=== PATIENT | female | born 1950 | race Hispanic/Latino ===

== ENCOUNTER 2020-03-07 11:08 | Emergency (ER) | payer MEDICARE, OTHER ==
[~2020-03-07] VITALS: Ht 152.4 cm; Wt 104.3 kg
--- OUTSIDE RECORDS SUMMARY | ~2020-03-07 | XMS | Encounter Summary ---
Demographics + + + | Address | [facility] [address] | | | [place] [address] | + + + | Home Phone | | + + + | Preferred Language | Unknown | + + + | Marital Status | Single | + + + | Sikhism Affiliation | [id number] | + + + | Race | Unknown | + + + | Ethnic Group | or | + + + Author + + + | Author | [facility] | | | and [place] | + + + | Organization | [facility] | | | and [place] | + + + | Address | Unknown | + + + | Phone | Unavailable | + + + Support + + +---------+ + | Name | Relationship | Address | Phone | + + +---------+ + | Bandar Chowdhury | ECON | Unknown | | + + +---------+ + Care Team Providers + +------+ + | Care Spray Ii Painter Name | Role | Phone | + +------+ + PCP | Unavailable | + +------+ + Encounter Details +--------+ + + + + | Date | Type | Department | Care Team | Description | +--------+ + + + + | 05/11/ | Emergency | [facility] | Luiz Clark | Complicated open | | 2018 | | MEDICAL CENTER | DO Juan Carvajal | wound of right | | | | EMERGENCY CENTER | [address]vd [place], [place] | thigh, initial | | | | [address] | [address] | encounter | | | | [place], [place] | | | | | | [address] | | | | | | [phone] | | | +--------+ + + + + Social History + +-------+ +--------+------+ | Tobacco Use | Types | Packs/Day | Years | Date | | | | | Used | | + +-------+ +--------+------+ | Never Smoker | | | | | + +-------+ +--------+------+ + + + | Sex Assigned at | Date Recorded | | | | + + + | Not on file | | + + + documented as of this encounter Last Filed Vital Signs + + + + + | Vital Sign | Reading | Time Taken | Comments | + + + + + | Blood Pressure | 120/59 | 05/11/2018 6:23 PM | | | | | PST | | + + + + + | Pulse | 74 | 05/11/2018 6:23 PM | | | | | PST | | + + + + + | Temperature | 37.2 C (98.9 F) | 05/11/2018 6:23 PM | | | | | PST | | + + + + + | Respiratory Rate | 16 | 05/11/2018 6:23 PM | | | | | PST | | + + + + + | Oxygen Saturation | - | - | | + + + + + | Inhaled Oxygen | - | - | | | Concentration | | | | + + + + + | Weight | 100.7 kg (222 lb) | 05/11/2018 6:23 PM | | | | | PST | | + + + + + | Height | - | - | | + + + + + | Body Mass Index | 43.36 | 08/15/2017 1:08 PM | | | | | PDT | | + + + + + documented in this encounter Medications at Time of Discharge + + + +---------+ + + | Medication | Sig | Dispensed | Refills | Start | End Date | | | | | | Date | | + + + +---------+ + + | diclofenac | Apply 2 g topically | 100 g | 2 | 08/08/19 | | | (VOLTAREN) 1% GEL | 4 (four) times | | | 17 | | | | daily. | | | | | + + + +---------+ + + | lisinopril | | | 0 | 09/17/19 | | | (PRINIVIL, ZESTRIL) | | | | 18 | | | 5 mg tablet | | | | | | + + + +---------+ + + | traZODone | Take 100 mg by mouth | | 0 | 01/24/20 | | | (DESYREL) 100 mg | nightly. | | | 16 | | | tablet | | | | | | + + + +---------+ + + documented as of this encounter ED Notes Bert Ndiaye PA-C - 05/11/2018 6:27 PM PSTFormatting of this note might be different f rom the original. ED Provider Notes by Bert Ndiaye PA-C at 05/11/181826 Author: Bert Ndiaye PA-C Service: (none) Author Type: Physician Fisher Pound Net Or Trap - Certifi ed Filed: 05/11/181845 Date of Service: 05/11/181826 Status: Attested Hat Model: Bert Ndiaye PA-C (Physician Fisher Pound Net Or Trap - Certified) Cosigner: Luiz Clark DO at 05/12/18 0004 Attestation signed by Luiz Clark DO at 05/12/18 0004 I have discussed this patient's case in detail with the Advanced Carpet Floor Layer Apprentice, and pr ovided appropriate supervision. We have discussed all likely DDX and have addressed these a ppropriately. In addition, I have seen and examined the patient myself and my physical exam findings are the same as those documented by the APC. I am in agreement with their assessm ent, plan and disposition. Procedures [facility] EMERGENCY DEPARTMENT History of Present Illness Patient Identification Coleen Bravo is a 68 y.o. female. Patient information was obtained from patient. History/Exam limitations: communication barrier Language. Cognos Consultant used. Patient presented to the Emergency Department by: Car Chief Complaint Chief Complaint Patient presents with Skin Complaint Complicated R thigh wound is not healing Sore Throat The patient is a 68 y.o. female presenting for open wound on right thigh. Onset of symptoms was 2 days ago, with a unresolving course since that time. The symptoms are described to b e of moderate severity. The patient describes the quality and location of the symptoms as t he following: Patient was nicked by a chainsaw on Saturday, did not immediately seek care, and then was treated in [place]. Patient is unhappy that providers in [place] would not sut ure the wound closed. Care prior to arrival consisted of packing and bandaging, with good re lief. Pertinent negatives include: No fevers. PCP: Per PT None History reviewed. No pertinent past medical history. Past Surgical History Procedure Laterality Date UNLISTED PROCEDURE ARTHROSCOPY Prior to Admission medications Medication Sig Start Date End Date Taking? Authorizing Provider diclofenac (VOLTAREN) 1 % Apply 2 g topically 4 (four) times daily. 08/07/16 JUDIT RasconP gabapentin (NEURONTIN) 800 MG tablet Take 1 tablet by mouth 3 (three) times daily. 08/07/16 08/07/17 ALEXANDRA Mtz No Known Allergies Social History Social History Marital status: Single Spouse name: N/A Number of children: N/A Years of education: N/A Occupational History Not on file. Social History Main Topics Smoking status: Never Smoker Smokeless tobacco: Never Used Alcohol use No Drug use: No Sexual activity: Not on file Other Topics Concern Not on file Social History Narrative No narrative on file History reviewed. No pertinent family history. ROS Review of Systems Review of Systems Constitutional: Negative for chills, fever and weight loss. HENT: Positive for sore throat. Negative for ear discharge, ear pain and sinus pain. Eyes: Negative for pain and discharge. Respiratory: Negative for shortness of breath and stridor. Cardiovascular: Negative for chest pain. Gastrointestinal: Negative for abdominal pain, nausea and vomiting. Genitourinary: Negative for dysuria, frequency and urgency. Musculoskeletal: Negative for myalgias. Open wound on right thigh Skin: Negative for rash. All other systems reviewed and are negative. Physical Exam BP 120/59 (BP Location: Right forearm) | Pulse 74 | Temp 98.9 F (37.2 C) (Temporal) | Resp 16 | Wt 100.7 kg (222 lb) | SpO2 95% | BMI 43.36 kg/m Pulse Oximetry interpretation: Normal Vital Signs Reviewed: normal General: Alert, in no apparent distress, non toxic Eyes: Normal inspection, pupils equal and round, no conjunctival injection HENT: Ears normal, no erythema, effusion, or perforation Nose normal Pharynx normal, no erythema or exudates noted Uvula midline Moist mucous membranes Neck: Normal inspection, trachea midline Cardiovascular: Rate and rhythm normal No murmurs, clicks, or rubs Normal distal perfusion Respiratory: Breath sounds normal bilaterally without rhonchi, rales, or wheezes Normal respiratory excursion Abdomen: Soft and non tender without guarding or rebound tenderness Genitourinary: Deferred Rectal exam: Deferred Back: Normal inspection Skin: Color normal, well perfused Warm and dry No rash MSK: Open wound approximately 4cm x 2 cm, packed with gauze. Surrounding area is not red, warm, or swollen. Neuro/Psych: Patient is alert and demonstrates appropriate mood and affect No gross motor or sensory deficits Medical Decision Making and Emergency Department Course ED Department Course 1720: Patient is a 68 y.o. female presenting with open wound on right thigh. Patient has pr eviously been provided care in [place]. She is unhappy that they would not close the wound . With retail equipment associate help, I thoroughly explained the risks of wound closure and answered ques tions to the best of my ability. I also spoke with patients son on the phone and explained t he same risks. I educated patient the patient on home care and symptoms that would warrant r eturn to ED. Pt has cannot recall when last tetanus shot was. We will provide that in the ED. At end of encounter, patient states that she is also had throat pain and swelling "for 20 y ears". After thorough examination of throat, I note enlarged tonsils, but no evidence of inf ection of respiratory problems. I advised patient to follow up with PCP for management. Case was discussed with attending, Dr. Clark, who agreed with the above plan. MDM I have discussed my clinical impression and treatment plan with the patient/guardians. We h ave specifically discussed the signs and symptoms that would constitute the need for an imme diate return to the Emergency Department, the importance of continued outpatient follow up a nd further testing (if deemed necessary by the patient's regular doctor) and the importance of compliance with the discharge instructions. I have answered any questions that the patien t has to the best of my ability. Based upon the patient s history, physical exam, emergenc y department course, and any laboratory and diagnostic studies which may have been performed , I feel that there is no current emergent medical condition that warrants admission, transf er, or further emergency department treatment at this time. Records Reviewed Old medical records. Nursing notes. Diagnosis & Disposition ED Diagnosis Final diagnosis Complicated open wound of right thigh, initial encounter Disposition: ED Disposition ED Disposition Condition Comment Orders Discharge Stable Follow-up Information Follow up With Specialties Details Why Contact Info [facility] Schedule an appointment as soon as possible for a visit [address] [facility] [phone] Located Within [facility] Emergency Department Emergency Medicine As needed, If symp toms worsen [address] [facility] [address] Discharge Medications: Discharge Medication List as of 05/11/2018 6:25 PM Bert Ndiaye PA-C 05/11/181845 Luiz Clark DO 05/12/18 0004 onversion Transac tion, Provider Unknown - 05/11/2018 6:22 PM PSTFormatting of this note might be different f rom the original. ED Notes by Agnes Kelly RN at 05/11/181821 Author: Agnes Kelly RN Service: (none) Author Type: Registered Nurse Filed: 05/11/181821 Date of Service: 05/11/181821 Status: Signed Hat Model: Agnes Kelly RN (Registered Nurse) Wound dressed. Pt and daughter educated on wound care by Dr. Clark and this RN. Agnes Kelly RN 05/11/181821 onver giovana Transaction, Provider Unknown - 05/11/2018 5:59 PM PST ED Notes by Mallory Young RN at 05/11/181758 Author: Mallory Young RN Service: (none) Author Type: Registered Nurse Filed: 05/11/181805 Date of Service: 05/11/181758 Status: Addendum Hat Model: Mallory Young RN (Registered Nurse) Related Notes: Original Note by Mallory Hannah, RN (Registered Nurse) filed at 05/11/181804 Patient presents to ER with complaint of non healing wound. Patient states "I just want sti tches, I dont want it to heal and leave a scar". This RN, and provider have explained the ri sks of closing a deep wound such as hers, and the high risk for infection. Patient was unha ppy about this, and continues to ask provider to "just stitch it up" Mallory Young RN 05/11/181804 Mallory Young RN 05/11/181805 docume nted in this encounter Plan of Treatment Not on filedocumented as of this encounter Visit Diagnoses + + | Diagnosis | + + | Complicated open wound of right thigh, initial encounter | + + documented in this encounter
--- OUTSIDE RECORDS SUMMARY | ~2020-03-07 | XMS | Encounter Summary ---
Demographics + + + | Address | [address] | | | [place] [address] | + + + | Home Phone | | + + + | Preferred Language | Unknown | + + + | Marital Status | Single | + + + | Buddhism Affiliation | CAT | + + + | Race | White | + + + | Ethnic Group | or | + + + Author + + + | Author | [facility] | + + + | Organization | [facility] | + + + | Address | Unknown | + + + | Phone | Unavailable | + + + Support + + +---------+ + | Name | Relationship | Address | Phone | + + +---------+ + | Whitley Vaughn | ECON | Unknown | | + + +---------+ + | Bandar Chowdhury | ECON | Unknown | | + + +---------+ + Care Team Providers + +------+ + | Care Cashier Manager Name | Role | Phone | + +------+ + | Luiz Abel MD | PCP | | + +------+ + Reason for Visit + +--------+ + | Reason | Onset | Comments | | | Date | | + +--------+ + | Treatment Question | 10/09/ | Dr. Stewart | | | 2016 | | + +--------+ + Encounter Details +--------+ + + + + | Date | Type | Department | Care Team | Description | +--------+ + + + + | 10/09/ | Telephone | [facility] | Angie Stewart MD | Treatment Question | | 2017 | | [facility] | [address] | (Dr. Stewart) | | | | [address] | [address] | | | | | [place] [address] | [place], [place] | | | | | Pavilion, [facility] floor | [address] | | | | | [place], [place] | [phone] | | | | | [address] | | | | | | [phone] | | | +--------+ + + + + Social History + +-------+ +--------+------+ | Tobacco Use | Types | Packs/Day | Years | Date | | | | | Used | | + +-------+ +--------+------+ | Never Smoker | | | | | + +-------+ +--------+------+ + + +---------+ + | Alcohol Use | Drinks/Week | oz/Week | Comments | + + +---------+ + | No | 0 Standard drinks | 0.0 | | | | or equivalent | | | + + +---------+ + + + + | Sex Assigned at | Date Recorded | | | | + + + | Not on file | | + + + documented as of this encounter Miscellaneous Notes Telephone Encounter - Hannah Green RN - 11/01/2016 11:00 AM PDTReceived results report o n 10/[address] Roberts for review elephone Encounter - Hannah Green RN - 10/25/2016 10:51 [facility], CMP, and EKG LM requesting these Provided with urogyn fax # and [facility] number Electronically signed by Hannah Green RN at 12/2016 10:53 AM PDTTelephone Encounter - Hannah Green RN - 10/16/2016 3:53 PM PDTCall t o patient Was able to finally reach patient She notes that PCP is NOT Dr. Abel Patient does not remember PCP name but she goes to [facility] for PCP f/u CBC, CMP, and EKG order faxed to [facility] at [phone] Patient will call them to set up carroll elephone Encounter - Hannah Green RN - 10/12/2016 4:12 PM PDTCall to Evelia abdulkadir at Dr. Abel's office No answer LM clarifying that order for CBC, CMP, and EKG is for patient to have done with PCP Informed that I have been unable to get in touch with patient but will continue to attempt to reach her Call to patient No answer Unable to leave VM el ephone Encounter - Danish, August - 10/12/2016 4:[address] Abel's office call ing in regards to preop orders that were sent in for patient. Jazz requests clarification: is the patient to have these tests done there to save a tri p to [place]? Or is this just information to update patient's chart? 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 Abel, pts PCP, per verbal order received from Dr. Roberts Faxed to Dr. Abel at [phone] Will attempt to call patient at a later time elephone Encounter - Hannah Green RN - 10/09/2016 11:11 AM PDTRec eived verbal order for patient to have the following done with local PCP: CBC, CMP, EKG documente d in this encounter Plan of Treatment + +------+--------+ + + | Name | Type | Priori | Associated Diagnoses | Order Schedule | | | | ty | | | + +------+--------+ + + | 12 LEAD ECG | ECG | Routin | Preoperative | Ordered: 10/09/2016 | | | | e | clearance | | + +------+--------+ + + documented as of this encounter Visit Diagnoses + + | Diagnosis | + + | Preoperative clearance - Primary Preoperative examination, unspecified | + + documented in this encounter"
--- OUTSIDE RECORDS SUMMARY | ~2020-03-07 | XMS | Encounter Summary ---
Demographics + + + | Address | [address] | | | [place] [address] | + + + | Home Phone | | + + + | Preferred Language | Unknown | + + + | Marital Status | Single | + + + | Confucianist Affiliation | CAT | + + + | Race | White | + + + | Ethnic Group | or | + + + Author + + + | Author | [facility] | + + + | Organization | [facility] | + + + [...] Team Providers + +------+ + | Care Help Desk Operator Name | Role | Phone | + +------+ + | Unknown | PCP | Unavailable | + +------+ + Encounter Details +--------+ + + + + | Date | Type | Department | Care Team | Description | +--------+ + + + + | 03/05/ | Hospital | Registration [facility] | | | | 2016 | Encounter | [address] | | | | | | [place], | | | | | | [place] [address] | | | +--------+ + + + + Social History + +-------+ +--------+------+ | Tobacco Use | Types | Packs/Day | Years | Date | | | | | Used | | + +-------+ +--------+------+ | Never Assessed | | | | | + +-------+ +--------+------+ + + + | Sex Assigned at | Date Recorded | | | | + + + | Not on file | | + + + documented as of this encounter Medications at Time of Discharge + + + +---------+ + + | Medication | Sig | Dispensed | Refills | Start | End Date | | | | | | Date | | + + + +---------+ + + | gabapentin 800 mg | 800 mg three times | | 1 | 02/06/20 | | | oral tablet | daily. | | | 16 | | + + + +---------+ + + | traZODone 100 mg | 100 mg once daily at | | 3 | 01/24/20 | | | oral tablet | bedtime. | | | 16 | | + + + +---------+ + + documented as of this encounter Plan of Treatment Not on filedocumented as of this encounter Visit Diagnoses Not on filedocumented in this encounter"
--- OUTSIDE RECORDS SUMMARY | ~2020-03-07 | XMS | Encounter Summary ---
Demographics + + + | Address | [address] | | | [place] [address] | + + + | Home Phone | | + + + | Preferred Language | Unknown | + + + | Marital Status | Single | + + + | Episcopal Affiliation | CAT | + + + | Race | White | + + + | Ethnic Group | or | + + + Author + + + | Author | [facility] | + + + | Organization | [facility] | + + + [...] Team Providers + +------+ + | Care Bulk Sealer Operator Name | Role | Phone | + +------+ + | Luiz Abel MD | PCP | | + +------+ + Reason for Visit + +--------+ + | Reason | Onset | Comments | | | Date | | + +--------+ + | Refill Request | 12/04/ | | | | 2017 | | + +--------+ + Encounter Details +--------+--------+ + + + | Date | Type | Department | Care Team | Description | +--------+--------+ + + + | 12/04/ | Refill | [facility] | Ani Ravi | Refill Request | | 2018 | | [facility] | MD [place] [address] | | | | | [address] | [facility] | | | | | [address] | [place], [place] | | | | | [place], [facility] floor | [address] | | | | | [place], [place] | [phone] | | | | | [address] | | | | | | [phone] | | | +--------+--------+ + + + Social History + +-------+ +--------+------+ | Tobacco Use | Types | Packs/Day | Years | Date | | | | | Used | | + +-------+ +--------+------+ | Never Smoker | | | | | + +-------+ +--------+------+ + +---+---+---+ | Smokeless Tobacco: | | | | | Never Used | | | | + +---+---+---+ + + +---------+ + | Alcohol Use [...] documented as of this encounter Miscellaneous Notes Addendum Note - Sincere Green RN - 01/14/2018 10:32 AM PDT Addended by: SINCERE GREEN RN on: 01/14/2018 10:32 AM Modules accepted: Orders elephone Encounter - Sincere Green RN - 01/14/2018 10:13 AM PDTScript for Oxybutynin 15 mg ER daily eRxd to p referred pharmacy Call to [facility] to determine cost Medication is covered. Co-pay $0 Call to patient Patient reports that she did start Oxybutynin IR 5 mg BID Reports that symptoms are better, Some leakage is present but not as much Reports side effects of dry mouth and constipation continue to be the same as before Reviewed Dr. Ravi recommendations with patient Patient is happy to try Oxybutynin ER Advised patient to stop taking Oxybutynin IR 5 mg BID and initiate Oxybutynin ER 15 mg sri y Patient confirms and agrees with plan elephone Encounter - Ani Ravi MD - 01/12/2018 3:01 PM PDTIf her insurance will cover the extended release formula, then we should try 15 mg DAILY rather than the BID dosing. Also, if she pe rsists with urinary leakage then we need to consider Macroplastique injection given that she also demonstrated stress inc with borderline ISD and a fixed urethra on prior testingElectr onically signed by Ani Ravi MD at 01/12/2018 3:05 PM PDTTelephone Encounter - Sincere Green RN - 01/03/2018 5:18 PM PDTCall to patient No answer LMTCB elephone Encount er - Indira Roberts MD - 01/02/2018 12:11 PM PDTI will refill this prescription and s he can try taking 2 tabs twice daily. If this does not increase her side effects to an into lerable amount, then on the next refill we can put in for 10mg tabs BID.Electronically peng d by Indira Roberts MD at 01/02/2018 12:11 PM PDTTelephone Encounter - Sincere Green RN - 01/02/2018 10:46 AM PDTCall to patient Patient states that the Oxybutynin helps some with bladder pain with urgency Patient states she noted about 50% improvement and is interested in increasing dosage Patient states she did experience some dry mouth and constipation but this does not bother patient Advised patient this information will be routed to Dr. Ravi and Dr. Roberts for review Advised she can use Biotene products to help with dry mouth and colace for constipation Patient agrees with plan and would like to know if it is possible to send colace script as well Advised I will route request Routing to Dr. Ravi and Dr. Roberts for review RE: 1) Oxybutynin dosage management 2) Colace script eleph one Encounter - Sincere Green RN - 12/16/2017 11:36 AM PDTCall to patient No answer LMCTCB elephone Encoun ter - Ashely Zhang MD - 12/10/2017 10:50 AM PDTCalled patient. Reached voicemail. Left m essage asking her to call the clinic and let us know how she is doing with the prescription to help decide appropriate refill course. Ashley Zhang MD, MS FPMRS Fellow elephone Encounter - Trav, Ani Mcgowan MD - 12/04/2017 12:59 PM PDTI am happy to refill her medication but please find out how much this is helping her. We prescribed this in September and planned a trial of medication to understand how much better this gets her. I need to know how much better she is so we can determine whether any adjustments need to be made in her dose of med or in her treatment plan. I will hold off on sending the refill until we know this elephone Encounter - Elizabeth Douglass MA - 12/04/2017 12:47 PM PDTFormatting of this note might be different from the orig inal. Refill request received from [facility] pharmacy for: Requested Prescriptions Pending Prescriptions Disp Refills oxybutynin 5 mg oral tablet 60 tablet 1 Sig: Take 1 tablet by mouth two times daily. Last refill: 11/24/2017 Last visit: 09/18/2017 Next visit: No future visit scheduled Last mammogram: Pharmacy verified and order pended. Routing to Dr. Ravi and Dr. Zhang for review/autho rization. documented in this en counter Plan of Treatment Not on filedocumented as of this encounter Visit Diagnoses Not on filedocumented in this encounter"
--- OUTSIDE RECORDS SUMMARY | ~2020-03-07 | XMS | Encounter Summary ---
Demographics + + + | Address | [address] | | | [place] [address] | + + + | Home Phone | | + + + | Preferred Language | Unknown | + + + | Marital Status | Single | + + + | Uatsdin Affiliation | 1041 | + + + | Race | Unknown | + + + | Ethnic Group | or | + + + Author + + + | Author | [facility] | | | and [place] | + + + | Organization | [facility] | | | [...] Team Providers + +------+ + | Care Aerodynamic Consultant Name | Role | Phone | + +------+ + | Jeannette Meza | PCP | | + +------+ + Reason for Visit Auth/Cert +--------+--------+ + + + + | Status | Reason | Specialty | Diagnoses / | Referred By | Referred To | | | | | Procedures | Contact | Contact | +--------+--------+ + + + + | | | | Diagnoses | | Ernesto, | | | | | Abdominal | | Wilfrido Aranda, | | | | | pain, | | [address] | | | | | unspecified | | [address] | | | | | abdominal | | [place], | | | | | location | | [place] [address] | | | | | Positive FIT | | Phone: | | | | | (fecal | | [phone] | | | | | immunochemic | | Fax: | | | | | al test) | | [phone] | | | | | Morbid | | | | | | | obesity with | | | | | | | body mass | | | | | | | index (BMI) | | | | | | | of 40.0 or | | | | | | | higher (HCC) | | | | | | | LISHA on | | | | | | | CPAP | | | | | | | Procedures | | | | | | | TX | | | | | | | ESOPHAGOGAST | | | | | | | RODUODENOSCO | | | | | | | PY TRANSORAL | | | | | | | DIAGNOSTIC | | | | | | | TX EGD | | | | | | | TRANSORAL | | | | | | | BIOPSY | | | | | | | SINGLE/MULTI | | | | | | | PLE TX | | | | | | | COLONOSCOPY | | | | | | | FLX DX | | | | | | | W/COLLJ SPEC | | | | | | | WHEN PFRMD | | | | | | | TX | | | | | | | COLONOSCOPY | | | | | | | W/BIOPSY | | | | | | | SINGLE/MULTI | | | | | | | PLE TX | | | | | | | COLSC FLX | | | | | | | W/RMVL OF | | | | | | | TUMOR POLYP | | | | | | | LESION SNARE | | | | | | | TQ TX | | | | | | | ANESTHESIA | | | | | | | COMBINED | | | | | | | UPPER&LOWER | | | | | | | GI | | | | | | | ENDOSCOPIC | | | | | | | PX EGD | | | | | | | COLONOSCOPY | | | +--------+--------+ + + + + Encounter Details +--------+ + + + + | Date | Type | Department | Care Team | Description | +--------+ + + + + | 01/20/ | Anesthesia | [facility] | Keith Larsen | | | 2019 | Event | [facility] | DO Ignacio [address] | | | | | [address] | [address] [facility] | | | | | [place] | [place] [address] | | | | | [address] | [phone] | | | | | [phone] | | | +--------+ + + + + Anesthesia Record + + + + + | Procedure Name | Responsible | Anesthesia Start | Anesthesia Stop Time | | | Anesthesiologist | Time | | + + + + + | EGD (N/A Mouth) | Keith Larsen, | 01/20/19936 | 01/20/19 1018 | | | DO | | | + + + + + +----+---+ + + | Da | T | Event | Comment | | te | i | | | | | m | | | | | e | | | +----+---+ + + | 09 | 0 | | | | /0 | 8 | | | | 3/ | 4 | | | | 20 | 1 | | | | 19 | | | | +----+---+ + + | | 0 | An Checkout | Pre-use anesthesia machine/equipment checkout. | | | 9 | | | | | 2 | | | | | 7 | | | +----+---+ + + | | 0 | An Start | Reassessment prior to anesthesia induction/procedure. | | | 9 | | | | | 3 | | | | | 7 | | | +----+---+ + + | | 0 | AN | Per surgeon request | | | 9 | Antibiotic | | | | 3 | declined | | | | 8 | | | +----+---+ + + | | 0 | Pre-Procedu | | | | 9 | ral Timeout | | | | 4 | Completed | | | | 1 | | | +----+---+ + + | | 0 | Quick Note | SpO2 89-90 on room air, lungs clear, given real in preop | | | 9 | | | | | 4 | | | | | 2 | | | +----+---+ + + | | 0 | An | | | | 9 | Induction | | | | 4 | | | | | 2 | | | +----+---+ + + | | 0 | First | | | | 9 | Inc/Proc St | | | | 4 | | | | | 6 | | | +----+---+ + + | | 0 | Breathing | | | | 9 | Spontaneous | | | | 4 | ly | | | | 8 | | | +----+---+ + + | | 1 | an stop | | | | 0 | data | | | | 1 | | | | | 4 | | | +----+---+ + + | | 1 | An Stop | Patient handed off to recovery nurse. | | | 1 | | | | | 8 | | | +----+---+ + + +------+ | Meds | +------+ + + + | Name | Total | + + + | propofol (DIPRIVAN) injection | 40 mg | | (bolus) (20 mL) | | + + + | propofol | 430.76 mg | + + + | lidocaine 2% | 100 mg | + + + | lactated ringers (LR) infusion | 0 mL | + + + + + | No agents on file. | + + + + | No blood administrations on file. | + + +--------+ + + + | Type | Details | Placement | Removal | +--------+ + + + | Periph | 01/20/19; 914; Left; Hand; | 01/20/19 0915 by | 01/20/19 1052 by | | eral | [id number] catheter system; | Julieta A Rainey, | Julieta A Rainey, | | IV | 20 gauge, 1 1/4 in length; | RN | RN | | | intradermal injection, tolerated | | | | | well; no longer indicated, | | | | | catheter/device intact; 01/20/19; | | | | | 1052 | | | +--------+ + + + documented in this encounter Social History + +-------+ +--------+------+ | Tobacco [...] Comments | + + +---------+ + | Never | | | Not on file | + + +---------+ + + + + + | Alcohol Habits | Answer | Date Recorded | + + + + | How often do you have a drink containing | Never | 01/06/2019 | | alcohol? | | | + + + + | How many drinks containing alcohol do you | Not asked | | | have on a typical day when you are | | | | drinking? | | | + + + + | How often do you have six or more drinks on | Not asked | | | one occasion? | | | + + + + + + + | Sex Assigned at | Date Recorded | | | | + + + | Not on file | | + + + documented as of this encounter OR Notes Anesthesia Postprocedure Evaluation - Keith Larsen DO - 01/20/2019 11:09 AM PDTFor matting of this note might be different from the original. ANESTHESIA POSTANESTHESIA EVALUATION Coleen Bravo 68 y.o. female 1950 [id number] Procedure(s) EGD (N/A Mouth) COLONOSCOPY (N/A Rectum) Cooperates? Yes Mental Status Performs simple tasks. Respiratory Satisfactory - Airway patent (self maintained). Cardiovascular Satisfactory - Blood pressure and heart rate acceptable Temperature Satisfactory Pain Satisfactory N/V Control Satisfactory Hydration Satisfactory - No signs of dehydration Vitals Value Taken Time Temp 36.1 C (97 F) 01/20/2019 10:18 Pulse 77 01/20/2019 10:48 Resp 12 01/20/2019 10:18 BP 118/75 01/20/2019 10:45 Arterial Line BP Arterial Line BP 2 SpO2 93 % 01/20/2019 10:48 Vitals shown include unvalidated device data. Electronically signed by Keith Larsen DO 01/20/2019 11:09 [facility] nesthesia Preprocedure Evaluation - Keith Larsen DO - 12/20 2:31 PM PDT ANESTHESIA PREANESTHESIA EVALUATION Coleen Bravo 68 y.o. female 1950 [id number] Procedure(s): EGD (N/A Mouth) COLONOSCOPY (N/A Rectum) Medical,anesthesia, drug, allergy histories reviewed, NPO status verified. ECG reviewed. Labs reviewed. . Review of Systems / Med History Anesthesia History (-) PONV, difficult intubation, malignant hyperthermia . Cardiovascular , Exercise tolerance >4 METS(+) hypertension, (-) coronary artery disease. . Pulmonary (-) Chronic Obstructive Pulmonary Disease. (+) sleep apnea (No cpap). (+) Sleep apnea histo ry/interventions: known. (+) asthma. Gastrointestinal/Hepatic (+) acid reflux. Renal No results found for: CREA, BUN, NA, K, CL, CO2 . (-) end-stage renal disease. Endocrine (+) obesity: morbid BMI 40+ (-) Diabetes. Hematology/Other No results found for: WBC, HGB, HCT, MCV, LABPLAT, PLT . Neuromuscular (+) history of headaches, back pain. Psychology (+) psychiatric history of anxiety and depression. Physical Exam Airway MP II, TM >3 FB, Mouth opening >2 FB. Neck: full ROM, extends >30 degrees. Jaw protrus ion normal. Dental ; Patient denies loose, chipped or missing teeth (+) dentures-upper. CV Rhythm regular. Rate normal. (-) murmur. Pulm Clear to auscultation bilaterally. Neuro Grossly normal. Anesthesia Plan ASA 3 (BMI 43) Type: General, TIVA. Induction: Intravenous. Potential problems: None anticipated. Monitors: Standard ASA monitors. Consent statement:Anesthetic plan, alternatives, risks and benefits discussed with patient. discussed risks to teeth, heart problems, pain, perioperative CV events, respiratory events , sore throat. Consenting person understands and agrees to proceed . PARQ. Intravenous induction to loss of reflexes. Spontaneous ventilation throughout. Risk of as piration and hypoxia with endoscopy under TIVA explicitly discussed and patient desires to p roceed. Electronically Signed by: Keith Larsen DO ESig date/time: 01/17/2019 14:31 documented in th is encounter Miscellaneous Notes Anesthesia Post-op Handoff - Keith Larsen DO - 01/20/2019 10:17 AM PDTFormatting o f this note might be different from the original. ANESTHESIA HANDOFF NOTE Coleen Bravo 68 y.o. female 1950 [id number] The following were completed during the transfer of care: 1. Identification of patient 2. Identification of responsible practitioner (primary service) 3. Discussion of pertinent medical history 4. Discussion of the surgical/procedure course (procedure, reason for surgery, procedure pe rformed) 5. Intraoperative anesthetic management and issues/concerns 6. Expectations/plans for the early post-procedure period 7. Opportunity for questions and acknowledgement of understanding of report from receiving team EGD (N/A Mouth) COLONOSCOPY (N/A Rectum) Patient Location: Phase II Handoff Protocol Used: post-procedure handoff checklist completed Condition: sedated Airway/O2: other (see comments) Multimodal analgesia: multimodal analgesia not used between 6 hours prior to anesthesia sta rt to PACU discharge Analgesics allergies?: Patient does not have documented allergies to multiple classes of an algesics Comments: Supplemental Oxygen administered as necessary to maintain oxygen saturations abov e 92%. If the surgery does not typically require Narcotics then Multi-Modal Analgesia is not indic ated. The significant anesthesia concerns and VS in Epic were reviewed with the receiving team. Keith Larsen DO 01/20/2019 10:17 [facility] documented in this encounter Plan of Treatment Not on filedocumented as of this encounter Visit Diagnoses Not on filedocumented in this encounter Administered Medications + +--------+ +--------+------+------+ | Medication Order | MAR | Action | Dose | Rate | Site | | | Action | Date | | | | + +--------+ +--------+------+------+ | lidocaine (PF) 2% injection | Given | 01/21/20 | 100 mg | | | | Intravenous, PRN, Starting Tue | | 19 9:43 | | | | | 01/20/19 at 0943, Anesthesia | | AM PDT | | | | | Intra-op | | | | | | + +--------+ +--------+------+------+ +---+---+ | | | +---+---+ + +-------+ +-------+---+---+ | propofol (DIPRIVAN) injection | Given | 01/21/20 | 40 mg | | | | Intravenous, PRN, Starting Tue | | 19 9:43 | | | | | 19 at 0943, Anesthesia | | AM PDT | | | | | Intra-op | | | | | | + +-------+ +-------+---+---+ +---+---+ | | | +---+---+ + + + + +-------+---+ | propofol (DIPRIVAN) injection | Rate/Dos | 01/21/20 | 160 | 91.5 | | | Intravenous, CONTINUOUS PRN, | e Change | 19 10:02 | mcg/kg/m | mL/hr | | | Starting 01/20/19 at 0945, | | AM PDT | in | | | | Anesthesia Intra-op | | | | | | + + + + +-------+---+ +---------+ + +--------+---+ | New Bag | 01/21/20 | 200 | 114.4 | | | | 19 9:45 | mcg/kg/m | mL/hr | | | | AM PDT | in | | | +---------+ + +--------+---+ +---+---+ | | | +---+---+ documented in this encounter"
--- OUTSIDE RECORDS SUMMARY | ~2020-03-07 | XMS | Encounter Summary ---
Demographics + + + | Address | [address] | | | [place] [address] | + + + | Home Phone | | + + + | Preferred Language | Unknown | + + + | Marital Status | Single | + + + | Judaism Affiliation | CAT | + + + | Race | White | + + + | Ethnic Group | or | + + + Author + + + | Author | [facility] | + + + | Organization | [facility] | + + [...] Team Providers + +------+ + | Care Leather Etcher Name | Role | Phone | + +------+ + | Luiz Abel MD | PCP | | + +------+ + Reason for Referral Physical Therapy (Routine) + +--------+ + + + + | Status | Reason | Specialty | Diagnoses / | Referred By | Referred To | | | | | Procedures | Contact | Contact | + +--------+ + + + + | Canceled | | Non [facility] | Diagnoses | Alejandra, | Non[facility] | | | | Department | Pelvic pain | Indira Stafford, | Epic Dept | | | | | Procedures | [address] | | | | | | PHYSICAL | [address] | | | | | | THERAPY | Malena Donaldson | | | | | | REFERRAL | [place], [place] | | | | | | | [address] | | | | | | | Phone: | | | | | | | [phone] | | | | | | | Fax: | | | | | | | [phone] | | + +--------+ + + + + Reason for Visit Office Visit - E/M Services (Routine) +--------+--------+ + + + + | Status | Reason | Specialty | Diagnoses / | Referred By | Referred To | | | | | Procedures | Contact | Contact | +--------+--------+ + + + + | Closed | | Obstetrics & | Diagnoses | Non[facility] | [facility] | | | | Gynecology | Unspecified | Epic Dept | [facility] [address] | | | | | | | [address] | | | | | complication | | [place] | | | | | of internal | | [facility] | | | | | prosthetic | | floor | | | | | device, | | [place], [place] | | | | | implant and | | [address] | | | | | graft, | | Phone: | | | | | initial | | [phone] | | | | | encounter | | Fax: | | | | | Procedures | | [phone] | | | | | [place] | | | | | | | CYSTOMETROGR | | | | | | | AM W/DISULFURIZER TENDER&UP | | | | | | | [place] | | | | | | | INTRAABDOMIN | | | | | | | AL PRESSURE | | | | | | | TEST OK | | | | | | | ELECTRO-UROF | | | | | | | LOWMETRY, | | | | | | | FIRST OK | | | | | | | ANAL/URINARY | | | | | | | MUSCLE | | | | | | | STUDY OK | | | | | | | URETHROCYSTO | | | | | | | GRAM+VOIDING | | | | | | | OK | | | | | | | INJECTION | | | | | | | FOR BLADDER | | | | | | | X-RAY | | | +--------+--------+ + + + + Encounter Details +--------+---------+ + + + | Date | Type | Department | Care Team | Description | +--------+---------+ + + + | 10/31/ | Office | [facility] | Indira Roberts | Pelvic pain (Primary | | 2017 | Visit | [facility] | MD Nydia [address] | Dx) | | | | John MCFADDEN | [address] | | | | | [address] | [place], [place] | | | | | Jono, [facility] floor | [address] | | | | | [place], [place] | [phone] | | | | | [address] | | | | | | [phone] | | | +--------+---------+ + + + Social History + +-------+ [...] + + + | Blood Pressure | 128/80 | 10/31/2016 12:47 PM | | | | | PDT | | + + + + + | Pulse | 97 | 10/31/2016 12:47 PM | | | | | PDT | | + + + + + | Temperature | 37.2 C (99 F) | 10/31/2016 12:47 PM | | | | | PDT | | + + + + + | Respiratory Rate | - | - | | + + + + + | Oxygen Saturation | 94% | 10/31/2016 12:47 PM | | | | | PDT | | + + + + + | Inhaled Oxygen | - | - | | | Concentration | | | | + + + + + | Weight | 102.6 kg (226 lb 4.8 | 10/31/2016 12:47 PM | | | | oz) | PDT | | + + + + + | Height | - | - | | + + + + + | Body Mass Index | 44.2 | 03/28/2016 2:22 PM | | | | | PST | | + + + + + documented in this encounter Progress Notes Indira Roberts MD - 10/31/2016 1:00 PM [facility] Urogynecology Visit 10/31/2016 HPI: Ms. Bravo is a 66yo with urinary incontinence, urinary frequency, dysuria and l evator myalgia presenting for preoperative visit prior to removal of vaginal mesh on 11/01/16 . Her history is notable for [place] sling (anterior mesh with sacrospinous and arcus tendin eus attachments)placed by Dr. Luiz Abel ([place], [place]) in 2008 for anterior vaginal wall prolapse and stress urinary incontinence. She has had persistent pelvic pain since this proc edure and strongly desires mesh removal. Urodynamics performed in September 2016 showed detrusor overactivity with provocation (stress vishal t and filling phase), with stress urinary incontinence at 184mL with poor kegel effort. She also had borderline ISD, with MUCP of 35. She has been seen locally for surgical clearance by Dr. Cotton in [place], [place]. Preop EKG an d labwork WNL. Her lisinopril was increased to 40mg for better control of HTN and inhaled s teroid was added for asthma but she has obtained medical clearance for her procedure tomorro w. Pt reports having an improvement in her pelvic pain as well as improvement in urinary compl aints since urodynamic testings. She is quite nervous about undergoing an operation. The past medical history, surgical history, family history, social history, and current med ications updated in EPIC. PHYSICAL EXAM BP 128/80 | Pulse 97 | Temp (Src) 37.2 C (99 F) (Oral) | Wt 102.6 kg (226 lb 4.8 oz) | SpO2 94% | BMI 44.2 kg/(m^2) GENERAL: Healthy Appearing, No acute distress NECK: No thyromegaly RESPIRATORY: Breathing without difficulty CARDIOVASCULAR: No pedal edema ABDOMEN: Obese SKIN: Warm and dry NEUROLOGIC GAIT: Normal ORIENTATION: Oriented to time, place, and person AFFECT: Normal ASSESSMENT 66yo with urinary incontinence, urinary frequency, dysuria and levator myalgia present ing for preoperative visit prior to planned excision of anterior vaginal mesh. She has significant levator tenderness but has no pain to palpation of her anterior mesh. Pt previously counseled that her pain and urinary incontinence are unlikely to resolve with removal of vaginal mesh and in fact may worsen. We have recommended pelvic physical thera py as well as consideration of medications for bladder spasm as first line therapy. She had had improvement in her pain and urinary symptoms since urodynamics and I suspect this is in some sense secondary to interruption of the pain pathway, possibly a therapeutic hydrodiste nsion in part. Particularly in light of her current improvement in pain, we discussed that this suggests she may respond well to pelvic physical therapy.mesh. I expressed my concern that removal is likely to exacerbate her pain. After our discussion, she would like to cancel surgery. She is amenable to a 3-month trial of pelvic PT near her home. RECOMMENDATIONS - Referral placed to [facility] in [place] for pelvic PT - Return in 3 months if pain not improved (can cancel appt if symptoms manageable) - Will readdress need for mesh excision as needed Garima Roberts MD Female Pelvic Medicine and Reconstructive Surgery Fellow documented in th is encounter Plan of Treatment Not on filedocumented as of this encounter Procedures + +--------+ + + + | Procedure Name | Priori | Date/Time | Associated Diagnosis | Comments | | | ty | | | | + +--------+ + + + | OUTSIDE CARDIOLOGY | | 10/31/2016 | | Results for this | | | | 12:00 AM | | procedure are in the | | | | PDT | | results section. | + +--------+ + + + | ORDERS OTHER | | 10/31/2016 | | Results for this | | | | 12:00 AM | | procedure are in the | | | | PDT | | results section. | + +--------+ + + + | LAB REPORTS | | 10/26/2016 | | Results for this | | | | 12:00 AM | | procedure are in the | | | | PDT | | results section. | + +--------+ + + + documented in this encounter Results ORDERS OTHER (10/31/2016 12:00 AM PDT) + + + | Narrative | Performed At | + + + | | | + + + OUTSIDE CARDIOLOGY (10/31/2016 12:00 AM PDT) + + + | Narrative | Performed At | + + + | | | + + + LAB REPORTS (10/26/2016 12:00 AM PDT) + + + | Narrative | Performed At | + + + | | | + + + documented in this encounter Visit Diagnoses + + | Diagnosis | + + | Pelvic pain - Primary Unspecified symptom associated with female genital organs | + + documented in this encounter"
--- OUTSIDE RECORDS SUMMARY | ~2020-03-07 | XMS | Encounter Summary ---
Demographics + + + | Address | [facility] [address] | | | [place] [address] | + + + | Home Phone | | + + + | Preferred Language | Unknown | + + + | Marital Status | Single | + + + | Restorationist Affiliation | [id number] | + + + | Race | Unknown | + + + | Ethnic Group | or | + + + Author + + + | Author | [facility] | | | and [place] | + + + | Organization | [facility] | | | [...] Team Providers + +------+ + | Care Site Safety Representative Name | Role | Phone | + +------+ + PCP | Unavailable | + +------+ + Encounter Details +--------+ + + + + | Date | Type | Department | Care Team | Description | +--------+ + + + + | 03/02/ | Hospital | [facility] | Conversion | Shortness of breath | | 2015 | Encounter | [facility] | Transaction, | | | | | ECHOCARDIOGRAPHY | Provider Unknown | | | | | [address] [facility] | | | | | | [place] | (Fax) | | | | | [address] | | | | | | [phone] | | | +--------+ + + + [...] | + +--------+ + + + | ECHO COMPLETE | Routin | 03/02/2015 | | Results for this | | | e | 3:53 PM | | procedure are in the | | | | PDT | | results section. | + +--------+ + + + documented in this encounter Results ECHO Complete (03/02/2015 3:53 PM PDT) + + | Specimen | + + | | + + + + + | Impressions | Performed At | + + + | 1. Essentially normal study. | | + + + + + + | Narrative | Performed At | + + + | Patient Name: SONIA CANTRELL Date of : 1950 | | | Performing Physician: Nabil Haynes | | | MD | | | ------REPORT ADDENDED------ INDICATIONS SHORTNESS OF | | | BREATH CONCLUSIONS 1. Essentially normal study. | | | FINDINGS -------- ECG rhythm: Sinus rhythm. Study: A 2-dimensional | | | transthoracic echocardiogram with m-mode, spectral and color flow | | | Doppler was perfomed. Study: This was a technically adequate study. | | | Left Ventricle: Overall left ventricular systolic function is normal | | | with, an EF between 65 - 70 %. Left Ventricle: The left ventricle | | | cavity size is normal. Left Ventricle: Left ventricular wall | | | thickness is normal. Left Ventricle: The diastolic filling pattern is | | | normal for the age of the patient. Right Ventricle: The right | | | ventricle is normal in size. Left Atrium: The left atrial size is | | | normal. Right Atrium: The right atrial size is normal. Aortic Valve: | | | Aortic valve is trileaflet and is mildly thickened. Aortic Valve: | | | There is no evidence of aortic regurgitation. Aortic Valve: There is | | | no evidence of aortic stenosis. Mitral Valve: The mitral valve is | | | normal. Mitral Valve: No mitral regurgitation. Mitral Valve: Mild | | | mitral annular calcification present. Tricuspid Valve: The tricuspid | | | valve appears structurally normal. Tricuspid Valve: Mild tricuspid | | | regurgitation present. Tricuspid Valve: The right ventricular | | | systolic pressure (pulmonary artery systolic pressure), as measured by | | | Doppler, is 33.22mmHg. Pulmonic Valve: The pulmonic valve was not | | | well visualized. Pericardium: There is a trivial pericardial effusion | | | present. Pericardium: Anterior echo free space present. IVC/Hepatic | | | Veins: The IVC is small (<1.5cm) and collapses with sniff, consistent | | | with central venous pressures of 0-5mmHg. Septum: Appears to be a | | | PFO vs ASD seen with color doppler. MEASUREMENTS | | | Ao asc: 3.03 cm IVC: 1.24 cm LA Diam: 4.69 cm LA Major: | | | 5.08 cm EDV(Teich): 59.37 ml IVSd: 1.01 cm LVIDd: 3.73 cm | | | LVPWd: 1.07 cm LVOT Diam: 1.84 cm %FS: 35.05 % | | | EF(Teich): 65.17 % ESV(Teich): 20.67 ml IVSs: 1.18 cm | | | LVIDs: 2.42 cm LVPWs: 1.52 cm SV(Teich): 38.69 ml MV Izabella | | | Diam: 1.71 cm RA Major: 4.82 cm RVIDd: 3.22 cm LVEF MOD | | | A2C: 62.84 % SV MOD A2C: 32.67 ml LVEF MOD A4C: 63.60 % SV | | | MOD A4C: 35.63 ml EF Biplane: 62.51 % LVEDV MOD BP: 55.25 | | | ml LVESV MOD BP: 20.71 ml LVEDV MOD A2C: 51.99 ml LVLd A2C: | | | 6.78 cm LVEDV MOD A4C: 56.02 ml LVLd A4C: 7.15 cm LVESV | | | MOD A2C: 19.31 ml LVLs A2C: 5.31 cm LVESV MOD A4C: 20.39 ml | | | LVLs A4C: 5.82 cm CO Biplane: 2.45 l/min HR: 71.06 BPM | | | R-R: 844.29 ms LAESV(A-L): 58.66 ml LAESV Index (A-L): | | | 27.03 ml/m2 LAAs A2C: 19.44 cm2 LAESV A-L A2C: 54.90 ml LAESV | | | MOD A2C: 51.41 ml LALs A2C: 5.84 cm LAAs A4C: 17.57 cm2 | | | LAESV A-L A4C: 53.00 ml LALs A4C: 4.94 cm Ao Diam: 3.27 cm | | | AV Cusp: 2.10 cm LA Diam: 4.88 cm LA/Ao: 1.48 D-E | | | Excursion: 1.56 cm E-F Donley: 0.09 m/s EPSS: 0.42 cm HR: | | | 75.26 BPM AV maxP.35 mmHg AV meanP.78 mmHg AV | | | Vmax: 1.35 m/s AV Vmean: 0.92 m/s AV VTI: 28.39 cm JOSE | | | Vmax: 2.63 cm2 JOSE (VTI): 2.44 cm2 AVAI (Vmax): 0.00 cm2/m2 | | | AVAI (VTI): 0.00 cm2/m2 LVCI Dopp: 2.42 l/minm2 LVCO Dopp: | | | 5.26 l/min HR: 75.72 BPM LVOT maxP.17 mmHg LVOT | | | meanP.33 mmHg LVSI Dopp: 32.05 ml/m2 LVSV Dopp: 69.55 | | | ml LVOT Vmax: 1.33 m/s LVOT Vmean: 0.84 m/s LVOT VTI: | | | 26.11 cm MCO: 391.00 ms MV A Gerardo: 0.90 m/s MV DecT: 253.97 | | | ms MV E Gerardo: 0.83 m/s MV E/A Ratio: 0.92 MV PHT: 70.60 ms | | | MVA By PHT: 3.11 cm2 MV A Dur: 141.86 ms IVRT: 65.74 ms | | | Septal e': 0.08 m/s Septal E/e': 9.55 Lateral e': 0.09 m/s | | | Lateral E/e': 8.37 P Vein A: 0.28 m/s P Vein D: 0.54 m/s | | | P Vein S/D Ratio: 1.26 P Vein S: 0.69 m/s HR: 74.10 BPM PV | | | maxP.48 mmHg PV meanP.84 mmHg PV Vmax: 0.93 m/s | | | PV Vmean: 0.64 m/s PV VTI: 25.22 cm RAP: 5 mmHg RVSP: | | | 33.21 mmHg TR maxP.21 mmHg TR Vmax: 2.65 m/s TV A Gerardo: | | | 0.27 m/s TV Dec Donley: 2.61 m/s2 TV Dec Time: 133.69 ms TV | | | E Gerardo: 0.34 m/s TV E/A Ratio: 1.28 Printing Shop Supervisor: DANTE | | | Authenticated by: Nabil Haynes MD Report Date/Time: 03-03-2015 | | | 09:25:33 | | + + + + + | Procedure Note | + + | Louis, Rad Conversion - 01/02/2019 10:22 AM PDT Patient Name: Tavia CANTRELL of | | : 1950 Performing Physician: Nabil Haynes | | ------REPORT | | ADDENDED------INDICATIONS SHORTNESS OF BREATH CONCLUSIONS 1. | | Essentially normal study. FINDINGS--------ECG rhythm: Sinus rhythm.Study: A | | 2-dimensional transthoracic echocardiogram with m-mode, spectral and color flow Doppler | | was perfomed.Study: This was a technically adequate study.Left Ventricle: Overall left | | ventricular systolic function is normal with, an EF between 65 - 70 %.Left Ventricle: | | The left ventricle cavity size is normal.Left Ventricle: Left ventricular wall thickness | | is normal.Left Ventricle: The diastolic filling pattern is normal for the age of the | | patient.Right Ventricle: The right ventricle is normal in size.Left Atrium: The left | | atrial size is normal.Right Atrium: The right atrial size is normal.Aortic Valve: Aortic | | valve is trileaflet and is mildly thickened.Aortic Valve: There is no evidence of | | aortic regurgitation.Aortic Valve: There is no evidence of aortic stenosis.Mitral Valve: | | The mitral valve is normal.Mitral Valve: No mitral regurgitation.Mitral Valve: Mild | | mitral annular calcification present.Tricuspid Valve: The tricuspid valve appears | | structurally normal.Tricuspid Valve: Mild tricuspid regurgitation present.Tricuspid | | Valve: The right ventricular systolic pressure (pulmonary artery systolic pressure), as | | measured by Doppler, is 33.22mmHg.Pulmonic Valve: The pulmonic valve was not well | | visualized.Pericardium: There is a trivial pericardial effusion present.Pericardium: | | Anterior echo free space present.IVC/Hepatic Veins: The IVC is small (<1.5cm) and | | collapses with sniff, consistent with central venous pressures of 0-5mmHg.Septum: | | Appears to be a PFO vs ASD seen with color doppler. MEASUREMENTS Ao asc: | | 3.03 cmIVC: 1.24 cmLA Diam: 4.69 cmLA Major: 5.08 cmEDV(Teich): 59.37 mlIVSd: | | 1.01 cmLVIDd: 3.73 cmLVPWd: 1.07 cmLVOT Diam: 1.84 cm%FS: 35.05 %EF(Teich): | | 65.17 %ESV(Teich): 20.67 mlIVSs: 1.18 cmLVIDs: 2.42 cmLVPWs: 1.52 cmSV(Teich): | | 38.69 mlMV Izabella Diam: 1.71 cmRA Major: 4.82 cmRVIDd: 3.22 cmLVEF MOD A2C: 62.84 | | %SV MOD A2C: 32.67 mlLVEF MOD A4C: 63.60 %SV MOD A4C: 35.63 mlEF Biplane: 62.51 | | %LVEDV MOD BP: 55.25 mlLVESV MOD BP: 20.71 mlLVEDV MOD A2C: 51.99 mlLVLd A2C: | | 6.78 cmLVEDV MOD A4C: 56.02 mlLVLd A4C: 7.15 cmLVESV MOD A2C: 19.31 mlLVLs A2C: | | 5.31 cmLVESV MOD A4C: 20.39 mlLVLs A4C: 5.82 cmCO Biplane: 2.45 l/minHR: 71.06 | | BPMR-R: 844.29 msLAESV(A-L): 58.66 mlLAESV Index (A-L): 27.03 ml/m2LAAs A2C: | | 19.44 [id number] A-L A2C: 54.90 mlLAESV MOD A2C: 51.41 mlLALs A2C: 5.84 cmLAAs A4C: | | 17.57 [id number] A-L A4C: 53.00 mlLALs A4C: 4.94 cmAo Diam: 3.27 cmAV Cusp: 2.10 | | cmLA Diam: 4.88 cmLA/Ao: 1.48D-E Excursion: 1.56 cmE-F Donley: 0.09 m/sEPSS: | | 0.42 cmHR: 75.26 BPMAV maxP.35 mmHgAV meanP.78 mmHgAV Vmax: 1.35 m/Clifford | | Vmean: 0.92 m/Clifford VTI: 28.39 cmAVA Vmax: 2.63 cm2AVA (VTI): 2.44 [id number] (Vmax): | | 0.00 cm2/m2AVAI (VTI): 0.00 cm2/m2LVCI Dopp: 2.42 l/[id number] Dopp: 5.26 | | l/minHR: 75.72 BPMLVOT maxP.17 mmHgLVOT meanP.33 mmHgLVSI Dopp: 32.05 | | ml/m2LVSV Dopp: 69.55 mlLVOT Vmax: 1.33 m/sLVOT Vmean: 0.84 m/sLVOT VTI: 26.11 | | cmMCO: 391.00 msMV A Gerardo: 0.90 m/sMV DecT: 253.97 msMV E Gerardo: 0.83 m/sMV E/A | | Ratio: 0.92MV PHT: 70.60 msMVA By PHT: 3.11 cm2MV A Dur: 141.86 msIVRT: 65.74 | | msSeptal e': 0.08 m/sSeptal E/e': 9.55Lateral e': 0.09 m/sLateral E/e': 8.37P | | Vein A: 0.28 m/sP Vein D: 0.54 m/sP Vein S/D Ratio: 1.26P Vein S: 0.69 m/sHR: | | 74.10 BPMPV maxP.48 mmHgPV meanP.84 mmHgPV Vmax: 0.93 m/sPV Vmean: 0.64 | | m/sPV VTI: 25.22 cmRAP: 5 mmHgRVSP: 33.21 mmHgTR maxP.21 mmHgTR Vmax: | | 2.65 m/sTV A Gerardo: 0.27 m/sTV Dec Donley: 2.61 m/s2TV Dec Time: 133.69 msTV E Gerardo: | | 0.34 m/sTV E/A Ratio: 1.28 Printing Shop Supervisor: DANTEAutbrayanticated by: Nabil Haynes | | MDReport Date/Time: 03-03-2015 09:25:33 IMPRESSION: 1. Essentially normal study. | |LA Diam: 4.69 cm | |LA Major: 5.08 cm | |EDV(Teich): 59.37 ml | |IVSd: 1.01 cm | |LVIDd: 3.73 cm | |LVPWd: 1.07 cm | |LVOT Diam: 1.84 cm | |%FS: 35.05 % | |EF(Teich): 65.17 % | |ESV(Teich): 20.67 ml | |IVSs: 1.18 cm | |LVIDs: 2.42 cm | |LVPWs: 1.52 cm | |SV(Teich): 38.69 ml | |MV Izabella Diam: 1.71 cm | |RA Major: 4.82 cm | |RVIDd: 3.22 cm | |LVEF MOD A2C: 62.84 % | |SV MOD A2C: 32.67 ml | |LVEF MOD A4C: 63.60 % | |SV MOD A4C: 35.63 ml | |EF Biplane: 62.51 % | |LVEDV MOD BP: 55.25 ml | |LVESV MOD BP: 20.71 ml | |LVEDV MOD A2C: 51.99 ml | |LVLd A2C: 6.78 cm | |LVEDV MOD A4C: 56.02 ml | |LVLd A4C: 7.15 cm | |LVESV MOD A2C: 19.31 ml | |LVLs A2C: 5.31 cm | |LVESV MOD A4C: 20.39 ml | |LVLs A4C: 5.82 cm | |CO Biplane: 2.45 l/min | |HR: 71.06 BPM | |R-R: 844.29 ms | |LAESV(A-L): 58.66 ml | |LAESV Index (A-L): 27.03 ml/m2 | |LAAs A2C: 19.44 cm2 | |LAESV A-L A2C: 54.90 ml | |LAESV MOD A2C: 51.41 ml | |LALs A2C: 5.84 cm | |LAAs A4C: 17.57 cm2 | |LAESV A-L A4C: 53.00 ml | |LALs A4C: 4.94 cm | |Ao Diam: 3.27 cm | |AV Cusp: 2.10 cm | |LA Diam: 4.88 cm | |LA/Ao: 1.48 | |D-E Excursion: 1.56 cm | |E-F Donley: 0.09 m/s | |EPSS: 0.42 cm | |HR: 75.26 BPM | |AV maxP.35 mmHg | |AV meanP.78 mmHg | |AV Vmax: 1.35 m/s | |AV Vmean: 0.92 m/s | |AV VTI: 28.39 cm | |JOSE Vmax: 2.63 cm2 | |JOSE (VTI): 2.44 cm2 | |AVAI (Vmax): 0.00 cm2/m2 | |AVAI (VTI): 0.00 cm2/m2 | |LVCI Dopp: 2.42 l/minm2 | |LVCO Dopp: 5.26 l/min | |HR: 75.72 BPM | |LVOT maxP.17 mmHg | |LVOT meanP.33 mmHg | |LVSI Dopp: 32.05 ml/m2 | |LVSV Dopp: 69.55 ml | |LVOT Vmax: 1.33 m/s | |LVOT Vmean: 0.84 m/s | |LVOT VTI: 26.11 cm | |MCO: 391.00 ms | |MV A Gerardo: 0.90 m/s | |MV DecT: 253.97 ms | |MV E Gerardo: 0.83 m/s | |MV E/A Ratio: 0.92 | |MV PHT: 70.60 ms | |MVA By PHT: 3.11 cm2 | |MV A Dur: 141.86 ms | |IVRT: 65.74 ms | |Septal e': 0.08 m/s | |Septal E/e': 9.55 | |Lateral e': 0.09 m/s | |Lateral E/e': 8.37 | |P Vein A: 0.28 m/s | |P Vein D: 0.54 m/s | |P Vein S/D Ratio: 1.26 | |P Vein S: 0.69 m/s | |HR: 74.10 BPM | |PV maxP.48 mmHg | |PV meanP.84 mmHg | |PV Vmax: 0.93 m/s | |PV Vmean: 0.64 m/s | |PV VTI: 25.22 cm | |RAP: 5 mmHg | |RVSP: 33.21 mmHg | |TR maxP.21 mmHg | |TR Vmax: 2.65 m/s | |TV A Gerardo: 0.27 m/s | |TV Dec Donley: 2.61 m/s2 | |TV Dec Time: 133.69 ms | |TV E Gerardo: 0.34 m/s | |TV E/A Ratio: 1.28 | | | |Printing Shop Supervisor: DANTE | |Authenticated by: Nabil Haynes MD | |Report Date/Time: 03-03-2015 09:25:33 | | | |IMPRESSION: | |1. Essentially normal study. | + + documented in this encounter Visit Diagnoses + + | Diagnosis | + + | Shortness of breath | + + documented in this encounter"
--- OUTSIDE RECORDS SUMMARY | ~2020-03-07 | XMS | Encounter Summary ---
Demographics + + + | Address | [facility] [address] | | | [place] [address] | + + + | Home Phone | | + + + | Preferred Language | Unknown | + + + | Marital Status | Single | + + + | Bahai Affiliation | 1041 | + + + | Race | Unknown | + + + | Ethnic Group | or | + + + Author + + + | Author | [facility] | | | and [place] | + + + | Organization | [facility] | | | and [...] Team Providers + +------+ + | Care Cotton Presser Name | Role | Phone | + +------+ + PCP | Unavailable | + +------+ + Encounter Details +--------+ + + + + | Date | Type | Department | Care Team | Description | +--------+ + + + + | 07/04/ | Hospital | [facility] | Conversion | Pain | | 2017 | Encounter | CONVERSION [address] | Transaction, | | | | | [address] | Provider Unknown | | | | | [place], [place] | | | | | | [address] | | | | | | | | | +--------+ + + + [...] | + +--------+ + + + | MRI LUMBAR SPINE WO | Routin | 06/22/2016 | | Results for this | | CONTRAST | e | 11:30 PM | | procedure are in the | | | | PST | | results section. | + +--------+ + + + documented in this encounter Results MRI Lumbar Spine wo Contrast (06/22/2016 11:30 PM PST) + + | Specimen | + + | | + + + + + | Narrative | Performed At | + + + | This is a non-reportable procedure without a radiologist report and | | | is used for image storage only | | + + + + + | Procedure Note | + + | Adal Myers Gurjit - 01/01/2019 2:14 AM PDT This is a non-reportable procedure | | without a radiologist report and isused for image storage only | + + documented in this encounter Visit Diagnoses + + | Diagnosis | + + | Pain Generalized pain | + + documented in this encounter"
--- OUTSIDE RECORDS SUMMARY | ~2020-03-07 | XMS | Encounter Summary ---
Demographics + + + | Address | [facility] [address] | | | [place] [address] | + + + | Home Phone | | + + + | Preferred Language | Unknown | + + + | Marital Status | Single | + + + | Orthodox Affiliation | 1041 | + + + | Race | Unknown | + + + | Ethnic Group | or | + + + Author + + + | Author | [facility] | | | and [place] | + + + | Organization | [facility] | | | and [...] Team Providers + +------+ + | [employer] Name | Role | Phone | + +------+ + | Jeannette Meza | PCP | | + +------+ + Reason for Visit + +--------+ + | Reason | Onset | Comments | | | Date | | + +--------+ + | Procedure | 12/30/ | EGD/COLON PROP | | | 2019 | | + +--------+ + Encounter Details +--------+ + + + + | Date | Type | Department | Care Team | Description | +--------+ + + + + | 12/30/ | Telephone | [facility] | Wilfrido Orozco | Procedure (EGD/COLON | | 2019 | | GASTROENTEROLOGY | MD Man[address] | PROP) | | | | [address] [place] | [address] | | | | | [address] [place], [place] | [place] [address] | | | | | [address] | [phone] | | | | | [phone] | | | +--------+ + + + [...] this encounter Miscellaneous Notes Addendum Note - Litzy Blue RN - 12/31/2018 2:35 PM PDT Addended by: LISA BLUE on: 12/31/2018 14:35 Modules accepted: Orders elephone Enco unter - Litzy Blue RN - 12/31/2018 2:35 PM PDTCreated case and ordered prepElect ronically signed by Litzy Blue RN at 12/31/2018 2:35 PM PDTAddendum Note - Meghan Jones Medical Assistant - 12/31/2018 2:23 PM PDT Addended by: MEGHAN JONES on: 9 14:23 Modules accepted: Orders eleph one Encounter - Meghan Jones Medical Assistant - 12/30/2018 4:48 PM PDTScheduled pt for C olon/EDG with PROP sedation (High BMI 47.37; LISHA) on 01/20/[address] Orozco; [address] prep reviewed: low fiber diet 01/17, 01/18 before procedure; 2nd follow a clear liquid day before with bowel prep at 4pm until complete; Medications (patient will hold her reflux med ication the morning of procedure), surg/med hx, and allergies were reviewed; rx to [facility]; info mailed to pt. Patient son (Bandar) verbalized understanding. Electronically sign ed by Meghan Jones Finishing Wire Sawyer at 12/31/2018 2:19 PM PDTdocumented in this encounter Plan of Treatment Not on filedocumented as of this encounter Visit Diagnoses + + | Diagnosis | + + | Abdominal pain, unspecified abdominal location - Primary | + + | Positive FIT (fecal immunochemical test) | + + | Morbid obesity with body mass index (BMI) of 40.0 or higher ([facility]) | + + | LISHA on CPAP Obstructive sleep apnea (adult) (pediatric) | + + documented in this encounter"
--- OUTSIDE RECORDS SUMMARY | ~2020-03-07 | XMS | Encounter Summary ---
Demographics + + + | Address | [facility] [address] | | | [place] [address] | + + + | Home Phone | | + + + | Preferred Language | Unknown | + + + | Marital Status | Single | + + + | Restorationist Affiliation | [id number] | + + + | Race | Unknown | + + + | Ethnic Group | or | + + + Author + + + | Author | [facility] | | | and [place] | + + + | Organization | [facility] | | [...] Team Providers + +------+ + | Care Nub Card Tender Name | Role | Phone | + [...] | | | location | | [place] [address] | | | | | Positive FIT | | Phone: | | | | | (fecal | | [phone] | | | | | immunochemic | | Fax: | | | | | al test) | | [phone] | | | | | Morbid | [...] | | | | | | | RI | | | | | | | ESOPHAGOGAST | | | | | | | RODUODENOSCO | | | | | | | PY TRANSORAL | | | | | | | DIAGNOSTIC | | | | | | | RI EGD | | | | | | | TRANSORAL | | | | | | | BIOPSY | | | | | | | SINGLE/MULTI | | | | | | | PLE RI | | | | | | | COLONOSCOPY | | | | | | | FLX DX | | | | | | | W/COLLJ SPEC | | | | | | | WHEN PFRMD | | | | | | | RI | | | | | | | COLONOSCOPY | | | | | | | W/BIOPSY | | | | | | | SINGLE/MULTI | | | | | | | PLE RI | | | | | | | COLSC FLX | | | | | | | W/RMVL OF | | | | | | | TUMOR POLYP | | | | | | | LESION SNARE | | | | | | | TQ RI | | | | | | | [...] + + + + | 01/20/ | Hospital | [facility] | Wilfrido Fairchild | Abdominal pain, | | 2019 | Encounter | MED [facility] OP | MD Odilia [address] | unspecified | | | | [address] | [address] [place] | abdominal location; | | | | [place] | [place] [address] | Positive FIT (fecal | | | | [id number] | [phone] | immunochemical | | | | [phone] | | test); Morbid | | | | | | obesity with body | | | | | | mass index (BMI) of | | | | | | 40.0 or higher | | | | | | ([facility]); LISHA on CPAP; | | | | | | Gastroesophageal | | | | | | reflux disease | | | | | | without esophagitis | +--------+ + + + + Social [...] + + + | Blood Pressure | 118/75 | 01/20/2019 10:45 AM | | | | | PDT | | + + + + + | Pulse | 77 | 01/20/2019 10:45 AM | | | | | PDT | | + + + + + | Temperature | 36.1 C (97 F) | 01/20/2019 10:18 AM | | | | | PDT | | + + + + + | Respiratory Rate | 12 | 01/20/2019 10:18 AM | | | | | PDT | | + + + + + | Oxygen Saturation | 93% | 01/20/2019 10:45 AM | | | | | PDT | | + + + + + | Inhaled Oxygen | - | - | | | Concentration | | | | + + + + + | Weight | 95.3 kg (210 lb) | 01/20/2019 8:45 AM | | | | | PDT | | + + + + + | Height | 152.4 cm (5') | 01/20/2019 8:45 AM | | | | | PDT | | + + + + + | Body Mass Index | 41.01 | 01/20/2019 8:45 AM | | | | | PDT | | + + + + + documented in this encounter Medications at Time of Discharge + + + +---------+ + + | Medication | Sig | Dispensed | Refills | Start | End Date | | | | | | Date | | + + + +---------+ + + | acetaminophen | Take 500 mg by mouth | | 0 | | | | (TYLENOL) 500 mg | every 6 hours as | | | | | | tablet | needed for Pain. | | | | | + + + +---------+ + + | albuterol 90 | Inhale 2 puffs into | | 0 | | | | mcg/puff inhaler | the lungs every 6 | | | | | | | hours as needed for | | | | | | | Wheezing. | | | | | + + + +---------+ + + | amitriptyline | Take 25 mg by mouth | | 0 | | | | (ELAVIL) 25 mg | nightly. | | | | | | tablet | | | | | | + + + +---------+ + + | azithromycin | Take 250 mg by mouth | | 0 | | | | (ZITHROMAX) 250 mg | Daily. | | | | | | tablet | | | | | | + + + +---------+ + + | buPROPion | Take 100 mg by mouth | | 0 | | | | (WELLBUTRIN SR) 100 | 2 times daily. | | | | | | mg 12 hr tablet | | | | | | + + + +---------+ + + | diclofenac | Apply 2 g topically | 100 g | 2 | 08/08/19 | | | (VOLTAREN) 1% GEL | 4 (four) times | | | 17 | | | | daily. | | | | | + + + +---------+ + + | fluticasone | 1 spray by Nasal | | 0 | | | | (FLONASE) 50 | route Daily. | | | | | | mcg/nasal spray | | | | | | + + + +---------+ + + | gabapentin | Take 800 mg by mouth | | 0 | | | | (NEURONTIN) 800 MG | 3 times daily. | | | | | | tablet | | | | | | + + + +---------+ + + | lisinopril | | | 0 | 09/17/19 | | | (PRINIVIL, ZESTRIL) | | | | 18 | | | 5 mg tablet | | | | | | + + + +---------+ + + | melatonin 5 mg | Take by mouth | | 0 | | | | tablet | nightly as needed | | | | | | | for Insomnia. | | | | | + + + +---------+ + + | menthol, topical | Apply topically. | | 0 | | | | analgesic, | | | | | | | (BIOFREEZE) 4 % | | | | | | + + + +---------+ + + | montelukast | Take 10 mg by mouth | | 0 | | | | (SINGULAIR) 10 mg | nightly. | | | | | | tablet | | | | | | + + + +---------+ + + | omeprazole | Take 20 mg by mouth | | 0 | | | | (PRILOSEC) 20 mg | every morning | | | | | | capsule | (before breakfast). | | | | | + + + +---------+ + + | ondansetron | Take 4 mg by mouth | | 0 | // | | | (ZOFRAN ODT) 4 mg | every 6 hours as | | | 19 | | | disintegrating | needed. | | | | | | tablet | | | | | | + + + +---------+ + + | oxybutynin | Take 15 mg by mouth | | 0 | | | | (DITROPAN XL) 15 MG | Daily. | | | | | | 24 hr tablet | | | | | | + + + +---------+ + + | oxybutynin | Take 5 mg by mouth 3 | | 0 | | | | (DITROPAN) 5 mg | times daily. | | | | | | tablet | | | | | | + + + +---------+ + + | polyethylene | Take 17 g by mouth | | 0 | 12/03/19 | | | glycol (MIRALAX) | Daily as needed. | | | 19 | | | powder | | | | | | + + + +---------+ + + | sodium chloride | 2 sprays by Each | | 0 | | | | (OCEAN) 0.65% nasal | Nare route every | | | | | | spray | hour as needed for | | | | | | | Nasal Dryness. | | | | | + + + +---------+ + + | traZODone | Take 100 mg by mouth | | 0 | 01/24/20 | | | (DESYREL) 100 mg | nightly. | | | 16 | | | tablet | | | | | | + + + +---------+ + + | triamcinolone | Apply topically 2 | | 0 | | | | (KENALOG) 0.5% | times daily. | | | | | | ointment | | | | | | + + + +---------+ + + | sucralfate | Take 1 g by mouth 2 | | 0 | 12/23/19 | | | (CARAFATE) 1 g | times daily. | | | 19 | 0 | | tablet | | | | | | + + + +---------+ + + documented as of this encounter H&P Notes Wilfrido Fairchild MD - 01/20/2019 9:41 AM PDT PRE-ENDOSCOPY HISTORY AND PRE-SEDATION ASSESSMENT PATIENT NAME: Coleen Bravo : 1950 TODAY'S DATE: 01/20/2019 PLANNED PROCEDURE: Colonoscopy and EGD PERTINENT HISTORY/INDICATION FOR PROCEDURE: Coleen Bravo is a 68 y.o. female who is under going endoscopy for evaluation of diarrhea, abdominal pain, Heme + stool. Had negative CT in [facility]. Symptoms have actually improved, now stating that she is constipated. Has [facility] had EGD or colo before. Denies any FH of CRC. 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 pylori infection Headache Hepatic steatosis Insomnia Lumbar disc herniation with radiculopathy Major depressive disorder, single episode Mild persistent asthma Mixed stress and urge urinary incontinence Morbid obesity (HCC) Occult blood in stools Osteoarthritis Osteoarthritis of lumbar spine Paresthesia of lower extremity Prediabetes Sleep apnea Spinal stenosis of lumbar region without neurogenic claudication Spondylosis Vision loss Wound of thigh PROBLEM LIST: Patient Active Problem List Diagnosis Osteoarthritis of spine with radiculopathy, lumbar region Spondylosis Chronic left-sided low back pain with sciatica Numbness and tingling of left leg Lumbar disc herniation with radiculopathy Foraminal stenosis of lumbar region Spinal stenosis of lumbar region at multiple levels Acute gastritis without hemorrhage Allergic rhinitis Anxiety and depression Chronic maxillary sinusitis Complicated open wound of thigh GERD (gastroesophageal reflux disease) Headache Osteoarthritis of lumbar spine Pelvic pain Prediabetes Cervical spinal stenosis Abdominal pain, unspecified abdominal location Positive FIT (fecal immunochemical test) Obesity, Class III, BMI 40-49.9 (morbid obesity) LISHA on CPAP Hypertension O[place]i as primary spoken language PAST SURGICAL HISTORY Past Surgical History: Procedure Laterality Date BLADDER SURGERY KNEE ARTHROSCOPY Bilateral OTHER SURGICAL HISTORY UNLISTED PROCEDURE ARTHROSCOPY HOME MEDS: No current facility-administered medications on file prior to encounter. Current Outpatient Medications on File Prior to Encounter Medication Sig Dispense Refill acetaminophen (TYLENOL) 500 mg tablet Take 500 mg by mouth every 6 hours as needed for Pain. albuterol 90 mcg/puff inhaler Inhale 2 puffs into the lungs every 6 hours as needed for Wheezing. amitriptyline (ELAVIL) 25 mg tablet Take 25 mg by mouth nightly. azithromycin (ZITHROMAX) 250 mg tablet Take 250 mg by mouth Daily. buPROPion (WELLBUTRIN SR) 100 mg 12 hr tablet Take 100 mg by mouth 2 times daily. diclofenac (VOLTAREN) 1% GEL Apply 2 g topically 4 (four) times daily. 100 g 2 fluticasone (FLONASE) 50 mcg/nasal spray 1 spray by Nasal route Daily. gabapentin (NEURONTIN) 800 MG tablet Take 800 mg by mouth 3 times daily. lisinopril (PRINIVIL, ZESTRIL) 5 mg tablet melatonin 5 mg tablet Take by mouth nightly as needed for Insomnia. menthol, topical analgesic, (BIOFREEZE) 4 % Apply topically. montelukast (SINGULAIR) 10 mg tablet Take 10 mg by mouth nightly. omeprazole (PRILOSEC) 20 mg capsule Take 20 mg by mouth every morning (before breakfast ). ondansetron (ZOFRAN ODT) 4 mg disintegrating tablet Take 4 mg by mouth every 6 hours as needed. oxybutynin (DITROPAN XL) 15 MG 24 hr tablet Take 15 mg by mouth Daily. oxybutynin (DITROPAN) 5 mg tablet Take 5 mg by mouth 3 times daily. polyethylene glycol (MIRALAX) powder Take 17 g by mouth Daily as needed. sodium chloride (OCEAN) 0.65% nasal spray 2 sprays by Each Nare route every hour as nee ded for Nasal Dryness. sucralfate (CARAFATE) 1 g tablet Take 1 g by mouth 2 times daily. traZODone (DESYREL) 100 mg tablet Take 100 mg by mouth nightly. triamcinolone (KENALOG) 0.5% ointment Apply topically 2 times daily. ALLERGIES No Known Allergies Mallampati Class 2 (upper half of tonsil fossa) [place] [employer] Grade:ASA 3 - A patient with severe systemic disease Sedation Plan: Monitored anesthesia care EXAMINATION: BP (!) 131/102 | Pulse 69 | Temp 36.2 C (97.2 F) (Temporal) | Resp 18 | Ht 1.524 m (5') | Wt 95.3 kg (210 lb) | SpO2 98% | BMI 41.01 kg/m General: Alert and oriented Throat: Normal Lungs: Clear Heart: Regular rate and rhythm with out significant murmur Abdomen: flat, normal bowel sounds. Soft, nontender 1. Available medical records have been reviewed. 2. Medication list reviewed. IMPRESSION: Patient appropriate for EGD and colonoscopy. PLAN: 1. Proceed with procedure as stated above with monitored anesthesia care 2. Procedure, indications, risks and alternatives explained to patient/family and they agre ed to proceed and consent was signed. 3. Patient will be reevaluated immediately (1-2 minutes) before sedation administration and approved for the plan as stated above. Electronically Signed by: Wilfrido Fairchild MD 01/20/[address] [facility] VERIFICATION OF CONSENT (PARQ) The patient counseled regarding the procedure, its indications, risks, potential complicati ons and alternatives. Any questions were answered. Consent was obtained. Wilfrido Fairchild MD, 01/20/2019 9:42 [facility] Portions of this chart may have been created with Dragon voice recognition software. Occasi onal wrong-word or sound-alike substitutions may have occurred due to the inherent suero itations of voice recognition software. Please read the chart carefully and recognize, using context, where these substitutions have occurred documented in thi s encounter Miscellaneous Notes D-C Instructions Provation - Wilfrido Fairchild MD - 01/20/2019 9:33 AM PDTDischarge Ins tructions for Upper Endoscopy Patient: Coleen Bravo : 1950 Acct: [id number] Exam Date: Sunday, January 20, 2019 Doctor: WILFRIDO FAIRCHILD MD The chances of difficulty following this procedure are minimal. The following instructions will assist you in your recovery. 1. Do Not eat or drink anything for 1 hour. Try sips of water first. If tolerated, resume your regular diet or one recommended by your physician. 2. Do not drive, operate machinery, make critical decisions, or do activities that require coordination or balance for 24 hours. 3. You may experience a sore throat for 24 - 48 hours. You may use throat lozenges or gargle with warm salt water to relieve the discomfort. 4. Because air was put into your stomach druing the procedure, you may experience some belching. 5. Do not use any medication containing aspirin for 10 days, unless otherwise directed by your physician. 6. Sometimes the medications given to you druing the exam can aggravate the veins. The chemical irritation can cause inflammation or pain along the arm with redness, swelling and warmth. This does not mean there is an infection. You can treat the affected area by applying warm, wet compresses (towels) 4 times a day for 20 minutes at a time until inflammation is resolved 7. Report to your doctor: Chills and/or fever over 100 Persistent vomiting or vomiting with blood/nasal regurgitation Severe abdominal pain, other than gas cramps Severe chest pain Black, tarry stools You may reach your physician at . If unable to reach your physician, call [facility] Emergency Department at [address]. [phone] Your doctor recommends these additional instructions: We are waiting for your pathology results. See the patient instructions associated with the other procedure note for additional recommendations from your physician. Follow an antireflux regimen. This includes: - Do not lie down for at least 3 to 4 hours after meals. - Raise the head of the bed 4 to 6 inches. - Decrease excess weight. - Avoid citrus juices and other acidic foods, alcohol, chocolate, mints, coffee and other caffeinated beverages, carbonated beverages, fatty and fried foods. - Avoid tight-fitting clothing. - Avoid cigarettes and other tobacco products. These instructions have been explained to the patient and/or escort. A copy has been given to the patient/escort. Nurse Signature Patient Signature Escort Signature Date WILFRIDO FAIRCHILD MD 01/20/2019 10:20:09 AM This report has been signed electronically. -C Instructions Provation - Wilfrido Fairchild MD - 01/20/2019 9:30 AM PDTDischarge Instructions for Colonoscopy Exams Patient: Coleen Bravo : 1950 Acct: [id number] Exam Date: Sunday, January 20, 2019 Doctor: WILFRIDO FAIRCHILD MD You have had an examination of the gastrointestinal tract. The chances of difficulty following this procedure are minimal. The following instructions will assist you in your recovery. ACTIVITIES: Rest quietly until sedation wears off. DO NOT drive a motor vehicle or operate machinery for 24 hours after sedation. Be cautious making critical decisions for 24 hours after sedation. DIET: If throat has been sprayed, do not eat or drink for 1 hour after. Start with a swallow of tap water, if you experience any lack of sensation in your throat, wait another 30 - 60 minutes and start with water again. Once swallowing has returned to normal you may resume your usual diet unless otherwise instructed by your physician. DISCOMFORT: If you had a bowel exam, you may have some abdominal discomfort from the air put into your bowel during the exam. Moving about will help you pass this air. Sometimes the medications given to you during the exam can aggravate the veins. The chemical irritation can cause inflammation or pain along the arm with redness, swelling and warmth. This does not mean there is an infection. You can treat the affected area by applying warm,wet compresses (towels) 4 times a day for 20 minutes at a time until inflammation is resolved. REPORT TO YOUR DOCTOR: Unusual abdominal pain Chest pain or unusual shortness of breath Shoulder pain Nausea, vomiting Fever over 100 degrees, chills Signs of rectal bleeding (red or black stools) Any concern you have resulting from procedure You may reach your physician at . If unable to reach your physician, call [facility] Emergency Department at [address]. [phone] Your doctor recommends these additional instructions: See the patient instructions associated with the other procedure note for additional recommendations from your physician. Eat a high fiber diet. Your physician has recommended a repeat colonoscopy in five to 10 years for surveillance based on pathology results. We are waiting for your pathology results. These instructions have been explained to the patient and/or escort. A copy has been given to the patient/escort. Nurse Signature Patient Signature Escort Signature Date WILFRIDO FAIRCHILD MD 01/20/2019 10:15:29 AM This report has been signed electronically. documented in this encounter Plan of Treatment Not on filedocumented as of this encounter Procedures + +--------+ + + + | Procedure Name | Priori | Date/Time | Associated Diagnosis | Comments | | | ty | | | | + +--------+ + + + | SURGICAL PATHOLOGY | Routin | 01/20/2019 | | Results for this | | EXAM | e | 9:52 AM | | procedure are in the | | | | PDT | | results section. | + +--------+ + + + | COLONOSCOPY | | 01/20/2019 | Abdominal pain, | | | | | 9:35 AM | unspecified | | | | | PDT | abdominal location | | | | | | Positive FIT (fecal | | | | | | immunochemical test) | | | | | | Morbid obesity | | | | | | with body mass index | | | | | | (BMI) of 40.0 or | | | | | | higher (HCC) LISHA on | | | | | | CPAP | | + +--------+ + + + | EGD | | 01/20/2019 | Abdominal pain, | | | | | 9:35 AM | unspecified | | | | | PDT | abdominal location | | | | | | Positive FIT (fecal | | | | | | immunochemical test) | | | | | | Morbid obesity | | | | | | with body mass index | | | | | | (BMI) of 40.0 or | | | | | | higher (HCC) LISHA on | | | | | | CPAP | | + +--------+ + + + | EGD | Routin | 01/20/2019 | | Results for this | | | e | 9:33 AM | | procedure are in the | | | | PDT | | results section. | + +--------+ + + + | COLONOSCOPY | Routin | 01/20/2019 | | Results for this | | | e | 9:30 AM | | procedure are in the | | | | PDT | | results section. | + +--------+ + + + documented in this encounter Results Surgical Pathology Exam (01/20/2019 9:52 AM PDT) + + | Specimen | + + | | + + + + + | Narrative | Performed At | + + + | SPECIMEN(S): A GASTRIC BIOPSY SPECIMEN(S): B RANDOM COLON BIOPSY | [facility] | | SPECIMEN(S): C TRANSVERSE COLON POLYP SPECIMEN SOURCE: A. GASTRIC | [facility] | | BIOPSY B. RANDOM COLON BIOPSY C. TRANSVERSE COLON POLYP | | | CLINICAL HISTORY: R10.9 (unspecified abdominal pain), R19.5 (other | | | fecal abnormalities), E66.01 (morbid [severe] obesity due to excess | | | calories), G47.33 (obstructive sleep apnea [adult] [pediatric]), | | | Z99.89 (dependence on other enabling machines and devices) | | | MICROSCOPIC DESCRIPTION: Histologic sections of all submitted blocks | | | are examined by light microscopy. These findings, together with the | | | gross examination, support the pathologic diagnosis. B. Sections | | | reveal multiple biopsies of colonic mucosa. The epithelial surface | | | is intact and has retained mucus secreting ability. The basement | | | membrane is not thickened. Glands are simple and tubular and reach | | | all the way to the muscularis mucosa. The lamina propria is not | | | expanded and contains a few plasma cells, lymphocytes and infrequent | | | eosinophils. A few pigmented laden macrophages consistent with | | | melanosis coli are seen. No acute inflammatory cells, excess | | | intraepithelial lymphocytes, crypt abscesses, areas of fibrosis, | | | granulomas, or pseudomembranes are seen. There is no evidence of | | | malignancy or atypia. [facility] FINAL PATHOLOGIC DIAGNOSIS: A. | | | Mucosa, stomach, biopsy: - Minimal inactive chronic gastritis. - | | | Negative for the presence of bacteria morphologically consistent | | | with Helicobacter on HE stained sections. B. Mucosa, colon, | | | multiple random biopsies: - Mild melanosis coli. C. Mucosa, | | | transverse colon, biopsy: - Tubular adenoma. [facility]:C2NR | | | GROSS DESCRIPTION: Three specimens are received in three containers, | | | labeled "SM." A. The specimen, labeled "SM, gastric BX," is | | | received in formalin and consists of three hui-white soft tissue | | | fragments ranging from 0.4-0.5 cm in greatest dimension. The | | | specimen is entirely submitted in cassette (A1). B. The | | | specimen, labeled "SM, random colon BX," is received in formalin and | | | consists of six hui-white soft tissue fragments ranging from 0.2-0.4 | | | cm in greatest dimension. The specimen is entirely submitted in | | | cassette (B1). C. The specimen, labeled "SM, transverse polyp," is | | | received in formalin and consists of a 0.4 cm in greatest dimension | | | irregular hui-white soft tissue fragment. The specimen is entirely | | | submitted in cassette (C1). [place] (under the direct supervision of a | | | pathologist) The Gross Description was prepared using a voice | | | recognition system. The report was reviewed for accuracy; however, | | | sound-alike word errors, addition and/or deletions may occur. If | | | there is any question about this report, please contact Client | | | Services. PERFORMING LABORATORY: The technical component was | | | performed by [facility], [address] [place] [id number] | | | (Hide Sorter: Domonique Fields MD; CLIA# [id number]). | | | Diagnostician: Néstor Smith MD Pathologist Electronically | | | Signed 01/21/2019 | | + + + + +---------+ + + | Performing | Address | City/State/Zipcode | Phone Number | | Organization | | | | + +---------+ + + | [facility] | | | | | [facility] | | | | + +---------+ + + EGD (01/20/2019 9:33 AM PDT) + + | Specimen | + + | | + + + + -+ | Narrative | Performed At | + + -+ | | [facility] | | GastroenterologyPatient Name: Coleen MendenhallsProcedure Date: 01/20/2019 | [facility] | | 9:33 AMN: [id number] #: [id number] of : | | | 9Admit Type: AmbulatoryAge: 68Room: Endo Room 1Gender: | | | FemaleNote Status: FinalizedAttending MD: WILFRIDO FAIRCHILD , | | | MDProcedure: Upper GI endoscopyIndications: | | | Epigastric abdominal painProviders: WILFRIDO FAIRCHILD, | | | MD, Gabi Caruso RN, Ingrid Chan, | | | Marklogic Developer, Keith Larsen MD (Anesthesia Staff)Referring MD: | | | Jeannette Meza (Referring MD)Medicines: Monitored | | | Anesthesia CareComplications: No immediate | | | complications.Procedure: Pre-Anesthesia Assessment: - | | | Prior to the procedure, a History and Physical was performed, and | | | patient medications and allergies were reviewed. The patient is | | | competent. The risks and benefits of the procedure and the | | | sedation options and risks were discussed with the patient. All | | | questions were answered and informed consent was obtained. | | | Patient identification and proposed procedure were verified by | | | the physician, the nurse and the anesthesiologist in the | | | pre-procedure area in the procedure room. Mental Status | | | Examination: alert and oriented. Airway Examination: Mallampati | | | Class II (the uvula but not tonsillar pillars visualized). | | | Respiratory Examination: clear to auscultation. CV Examination: | | | normal. Prophylactic Antibiotics: The patient does not require | | | prophylactic antibiotics. Prior Anticoagulants: The patient | | | has taken no previous anticoagulant or antiplatelet agents. ASA | | | Grade Assessment: III - A patient with severe systemic | | | disease. After reviewing the risks and benefits, the patient | | | was deemed in satisfactory condition to undergo the procedure. The | | | anesthesia plan was to use monitored anesthesia care (MAC). | | | Immediately prior to administration of medications, the patient | | | was re-assessed for adequacy to receive sedatives. The heart | | | rate, respiratory rate, oxygen saturations, blood pressure, | | | adequacy of pulmonary ventilation, and response to care were | | | monitored throughout the procedure. The physical status of the | | | patient was re-assessed after the procedure. After obtaining | | | informed consent, the endoscope was passed under direct vision. | | | Throughout the procedure, the patient's blood pressure, pulse, | | | and oxygen saturations were monitored continuously. The Endoscope was | | | introduced through the mouth, and advanced to the second part | | | of duodenum. The upper GI endoscopy was accomplished without | | | difficulty. The patient tolerated the procedure well.Findings: | | | The examined esophagus was normal. The Z-line was regular | | | and was found 36 cm from the incisors. The cardia, gastric | | | fundus, gastric body, incisura, gastric antrum and pylorus were | | | normal. Biopsies were taken with a cold forceps for histology. | | | A very small slidding 1 cm hiatal hernia was found. | | | Retroflexion was otherwie normal. The duodenal bulb and | | | second portion of the duodenum were normal.Impression: - Normal | | | esophagus. - Z-line regular, 36 cm from the incisors. - | | | Normal cardia, gastric fundus, gastric body, incisura, antrum and | | | pylorus. Biopsied. - 1 cm hiatal hernia. - Normal | | | duodenal bulb and second portion of the duodenum.Recommendation: | | | - Await pathology results. - See the other procedure note for | | | documentation of additional recommendations. - Follow an | | | antireflux regimen.WILFRIDO FAIRCHILD MD01/20/2019 10:20:09 AMThis | | | report has been signed electronically.Number of Addenda: 0Note | | | Initiated On: 01/20/2019 9:33 AMScope In: 9:50:16 AMScope Out: 9:54:31 | | | AM [facility], [address] | | | [place] [address] | | | - Normal cardia, gastric fundus, gastric body, incisura, antrum and | | | pylorus. Biopsied. | | | - 1 cm hiatal hernia. | | | - Normal duodenal bulb and second portion of the duodenum. | | |Recommendation: | | | - Await pathology results. | | | - See the other procedure note for documentation of additional | | | recommendations. | | | - Follow an antireflux regimen. | | |WILFRIDO FAIRCHILD MD | | |01/20/2019 10:20:09 AM | | |This report has been signed electronically. | | |Number of Addenda: 0 | | |Note Initiated On: 01/20/2019 9:33 AM | | |Scope In: 9:50:16 AM | | |Scope Out: 9:54:31 AM | | | [facility], [address] [place] [address] | | | [id number] | | + + -+ + +---------+ + + | Performing | Address | City/State/Zipcode | Phone Number | | Organization | | | | + +---------+ + + | [facility] | | | | + +---------+ + + COLONOSCOPY (01/20/2019 9:30 AM PDT) + + | Specimen | + + | | + + + + ---+ | Narrative | Performed At | + + ---+ | | [facility] | | GastroenterologyPatient Name: Coleen Keeley Date: 01/20/2019 | [facility] | | 9:30 AMMRN: [id number] #: [id number] of : | | | 1950Admit Type: AmbulatoryAge: 68Room: Endo Room 1Gender: | | | FemaleNote Status: FinalizedAttending MD: WILFRIDO FAIRCHILD , | | | MDProcedure: ColonoscopyIndications: Generalized | | | abdominal pain, Heme positive stool, | | | Incidental change in bowel habits notedProviders: WILFRIDO | | | ODILIA FAIRCHILD MD, Gabi Caruso RN, Ingrid Santana | | | Rocio, Marklogic Developer, Keith Larsen MD (Anesthesia Staff)Referring | | | MD: Jeannette Meza (Referring MD)Medicines: | | | Monitored Anesthesia CareComplications: No immediate | | | complications.Procedure: Pre-Anesthesia Assessment: - | | | Prior to the procedure, a History and Physical was performed, and | | | patient medications and allergies were reviewed. The patient is | | | competent. The risks and benefits of the procedure and the | | | sedation options and risks were discussed with the patient. All | | | questions were answered and informed consent was obtained. | | | Patient identification and proposed procedure were verified by | | | the physician, the nurse and the anesthesiologist in the | | | pre-procedure area in the procedure room. Mental Status | | | Examination: alert and oriented. Airway Examination: Mallampati | | | Class II (the uvula but not tonsillar pillars visualized). | | | Respiratory Examination: clear to auscultation. CV Examination: | | | normal. Prophylactic Antibiotics: The patient does not require | | | prophylactic antibiotics. Prior Anticoagulants: The patient | | | has taken no previous anticoagulant or antiplatelet agents. ASA | | | Grade Assessment: III - A patient with severe systemic | | | disease. After reviewing the risks and benefits, the patient | | | was deemed in satisfactory condition to undergo the procedure. The | | | anesthesia plan was to use monitored anesthesia care (MAC). | | | Immediately prior to administration of medications, the patient | | | was re-assessed for adequacy to receive sedatives. The heart | | | rate, respiratory rate, oxygen saturations, blood pressure, | | | adequacy of pulmonary ventilation, and response to care were | | | monitored throughout the procedure. The physical status of the | | | patient was re-assessed after the procedure. After I obtained | | | informed consent, the scope was passed under direct vision. | | | Throughout the procedure, the patient's blood pressure, pulse, | | | and oxygen saturations were monitored continuously. The Colonoscope | | | was introduced through the anus and advanced to the terminal | | | ileum. The colonoscopy was performed without difficulty. The | | | patient tolerated the procedure well. The quality of the bowel | | | preparation was evaluated using the BBPS ([place] Bowel | | | Preparation Scale) with scores of: Right Colon = 3, Transverse | | | Colon = 3 and Left Colon = 3 (entire mucosa seen well with no | | | residual staining, small fragments of stool or opaque liquid). The | | | total BBPS score equals 9.Findings: The perianal and digital | | | rectal examinations were normal. The terminal ileum appeared | | | normal. The ascending colon and cecum appeared normal. A 1 | | | mm polyp was found in the transverse colon. The polyp was sessile. | | | The polyp was removed with a cold biopsy forceps. Resection and | | | retrieval were complete. The rectum, sigmoid colon and | | | descending colon appeared normal. The retroflexed view of the | | | distal rectum and anal verge was normal and showed no anal or | | | rectal abnormalities. Biopsies for histology were taken with a | | | cold forceps from the entire colon for evaluation of | | | microscopic colitis.Impression: - The examined portion of the | | | ileum was normal. - The ascending colon and cecum are normal. | | | - One 1 mm polyp in the transverse colon, removed with a cold | | | biopsy forceps. Resected and retrieved. - The rectum, | | | sigmoid colon and descending colon are normal. - The distal | | | rectum and anal verge are normal on retroflexion view. - | | | Biopsies were taken with a cold forceps from the entire colon for | | | evaluation of microscopic colitis.Recommendation: - The | | | patient will be observed post-procedure, until all discharge | | | criteria are met. - See the other procedure note for | | | documentation of additional recommendations. - High fiber | | | diet. - Repeat colonoscopy in 5-10 years for surveillance based | | | on pathology results. - Await pathology results.WILFRIDO | | | ODILIA FAIRCHILD MD01/20/2019 10:15:29 AMThis report has been signed | | | electronically.Number of Addenda: 0Note Initiated On: 01/20/2019 9:30 | | | AMScope Withdrawal Time: 0 hours 6 minutes 20 seconds Scope In: | | | 9:56:32 AMScope Out: 10:10:08 AM [facility] | | | [place], [address] [place] [id number] | | | - The patient will be observed post-procedure, until all discharge | | | criteria are met. | | | - See the other procedure note for documentation of additional | | | recommendations. | | | - High fiber diet. | | | - Repeat colonoscopy in 5-10 years for surveillance based on pathology | | | results. | | | - Await pathology results. | | |WILFRIDO FAIRCHILD MD | | |01/20/2019 10:15:29 AM | | |This report has been signed electronically. | | |Number of Addenda: 0 | | |Note Initiated On: 01/20/2019 9:30 AM | | |Scope Withdrawal Time: 0 hours 6 minutes 20 seconds | | |Scope In: 9:56:32 AM | | |Scope Out: 10:10:08 AM | | | [facility], [address] [place] [address] | | | [id number] | | + + ---+ + +---------+ + + | Performing | Address | City/State[facility] | Phone Number | | Organization | | | | + +---------+ + + | [facility] | | | | + +---------+ + + documented in this encounter Visit Diagnoses + + | Diagnosis | + + | Abdominal pain, unspecified abdominal location | + + | Positive FIT (fecal immunochemical test) | + + | Morbid obesity with body mass index (BMI) of 40.0 or higher (HCC) | + + | LISHA on CPAP Obstructive sleep apnea (adult) (pediatric) | + + | Gastroesophageal reflux disease without esophagitis Esophageal reflux | + + | Obesity, Class III, BMI 40-49.9 (morbid obesity) (HCC) Morbid obesity | + + | GERD (gastroesophageal reflux disease) Esophageal reflux | + + | Hypertension Unspecified essential hypertension | + + documented in this encounter Admitting Diagnoses + + | Diagnosis | + + | Abdominal pain, unspecified abdominal location | + + | Positive FIT (fecal immunochemical test) | + + | Morbid obesity with body mass index (BMI) of 40.0 or higher (HCC) | + + | LISHA on CPAP Obstructive sleep apnea (adult) (pediatric) | + + documented in this encounter Administered Medications + +--------+ +-------+------+------+ | Medication Order | MAR | Action | Dose | Rate | Site | | | Action | Date | | | | + +--------+ +-------+------+------+ | albuterol-ipratropium 2.5-0.5 | Given | 01/21/20 | 3 mLs | | | | mg/3 mL nebulizer solution 3 mL | | 19 9:05 | | | | | 3 mL, Nebulization, ONCE, Tue | | AM PDT | | | | | 01/20/19 at 0900, For 1 dose, | | | | | | | Pre-op | | | | | | + +--------+ +-------+------+------+ + +---+ | | | + +---+ | albuterol-ipratropium 2.5-0.5 | | | mg/3 mL nebulizer solution 3 mL | | | 3 mL, Nebulization, ONCE PRN, | | | Wheezing, Shortness of Breath, | | | Starting 01/20/19 at 1019, For | | | 1 dose, Recovery/Phase I | | + +---+ | | | + +---+ + +-------+ +---------+---+---+ | benzocaine (HURRICAINE) 20% | Given | 01/21/20 | 1 spray | | | | non-aerosol spray PRN, Starting | | 19 9:42 | | | | | 01/20/19 at 0942 | | AM PDT | | | | + +-------+ +---------+---+---+ + +---+ | | | + +---+ | dextrose 50% injection 12.5-25 | | | g 12.5-25 g, Intravenous, EVERY | | | 15 MIN PRN, Low Blood Sugar, Give | | | 12.5g (25 mL) IV if blood | | | glucose 50-69 mg/dL. Give 25g | | | (50 mL) IV if blood glucose < 50, | | | Starting 01/20/19 at 0841, | | | Repeat in 15 min if blood glucose | | | remains < 70 mg/dL. Repeat | | | blood glucose in 30 min once | | | blood glucose > 70., Pre-op | | + +---+ | | | + +---+ | dextrose 50% injection 12.5-25 | | | g 12.5-25 g, Intravenous, EVERY | | | 15 MIN PRN, Low Blood Sugar, For | | | hypoglycemia. Give 12.5g (25ml) | | | IV if blood glucose 50-69 | | | mg/dL. Give 25g (50ml) IV if | | | blood glucose < 50, Starting Tue | | | 01/20/19 at 1019, Give over 2 min. | | | Repeat in 15 min if blood | | | glucose remains < 70 mg/dL. | | | Repeat blood glucose in 30 min | | | once blood glucose > 70., | | | Recovery/Phase I | | + +---+ | | | + +---+ | lactated ringers (LR) infusion | | | at 10-100 mL/hr, Intravenous, | | | CONTINUOUS, Starting 01/20/19 | | | at 0900, Use this instead of NS | | | unless patient is on dialysis., | | | Pre-op | | + +---+ | | | + +---+ + +---------+ +---+-------+---+ | lactated ringers (LR) infusion | New Bag | 01/21/20 | | 100 | | | at 100 mL/hr, Intravenous, | | 19 9:23 | | mL/hr | | | CONTINUOUS, Starting 01/20/19 | | AM PDT | | | | | at 0900, Pre-op | | | | | | + +---------+ +---+-------+---+ + +---+ | | | + +---+ | ondansetron (ZOFRAN) injection | | | 4 mg 4 mg, Intravenous, ONCE | | | PRN, Nausea, Starting 01/20/19 | | | at 1019, For 1 dose, | | | Post-op/Phase II | | + +---+ | | | + +---+ | sodium chloride 0.9% (NS) | | | infusion at 10-100 mL/hr, | | | Intravenous, CONTINUOUS, Starting | | | 01/20/19 at 0900, TKO. Use | | | this instead of LR if patient is | | | on dialysis., Pre-op | | + +---+ | | | + +---+ documented in this encounter
--- OUTSIDE RECORDS SUMMARY | ~2020-03-07 | XMS | Encounter Summary ---
Demographics + + + | Address | [address] | | | [place] [address] | + + + | Home Phone | | + + + | Preferred Language | Unknown | + + + | Marital Status | Single | + + + | Nondenominational Affiliation | [id number] | + + + | Race | Unknown | + + + | Ethnic Group | or | + + + Author + + + | Author | [facility] | | | and [place] | + + + | Organization | [facility] | | | and [...] Team Providers + +------+ + | Care Time Broker Name | Role | Phone | + +------+ + | Jeannette Meza | PCP | | + +------+ + Encounter Details +--------+ + + + + | Date | Type | Department | Care Team | Description | +--------+ + + + + | 08/07/ | Orders Only | [facility] | Renan Anne, | | | 2016 | | NEUROSURGERY [address] | [address] [address] | | | | | [place] | [address] | | | | | [place] | [place] | | | | | [address] | [address] | | | | | [phone] | [phone] | | | | | | | [...]
--- OUTSIDE RECORDS SUMMARY | ~2020-03-07 | XMS | Encounter Summary ---
Demographics + + + | Address | [address] | | | [place] [address] | + + + | Home Phone | | + + + | Preferred Language | Unknown | + + + | Marital Status | Single | + + + | Quaker Affiliation | CAT | + + + | Race | White | + + + | Ethnic Group | or | + + + Author + + + | Author | [facility] | + + + | Organization | [facility] | + + + [...] Team Providers + +------+ + | Care Advisory Software Engineer Name | Role | Phone | + +------+ + | Luiz Abel MD | PCP | | + +------+ + Reason for Visit + +--------+ + | Reason | Onset | Comments | | | Date | | + +--------+ + | Question | 04/16/ | Dr. Stewart | | | 2015 | | + +--------+ + Encounter Details +--------+ + + + + | Date | Type | Department | Care Team | Description | +--------+ + + + + | 04/16/ | Telephone | [facility] | Angie Stewart MD | Question ( | | 2016 | | [facility] | [address] | [place]) | | | | [address] | [address] | | | | | [address] | [place], [place] | | | | | Pavilion, [facility] floor | [address] | | | | | [place], [place] | [phone] | | | | | [address] | | | | | | [phone] | | | +--------+ + + + [...] Telephone Encounter - Hannah Green RN - 04/18/2016 1:54 PM PSTCall to Mar[facility] with [facility] [phone] Stewart's message below No further questions and they will fax OV notes once completed elephone Encounter - Angie Stewart MD - 04/18/20 11:24 AM PSTBasically stability of any cardiac or pulmonary issues. elephone Encounter - Hannah Green RN - 11:[address] Stewart and Dr. Christy to provide specifics on what medi juan m clearance is needed for pts PCP visit Please see message below RN will call them back with details Electronically signed by Hannah Green RN at 6 11:03 AM PSTTelephone Encounter - Violette Dai - 04/18/2016 10:50 AM PSTTC from Mariah [facility] to follow up on request for specifics needed for surgery melanie romain. She requests a call back to discuss so that she can schedule patient. PAS informed her that we are waiting on Dr. Machado feedback. elephone Encounter - Hannah Green RN - 04/16/2016 3: 53 PM PSTPlease see message below Routing to Dr. Stewart for further details on medical clearance from PCPElectronically peng d by Hannah Green RN at 04/16/2016 3:55 PM PSTTelephone Encounter - Josephine Saleh - 03/21 9:33 AM PSTTC from Mariah with [facility] calling on behalf of mine groves's PCP Nafisa Miller MD. Mariah states that patient called their office to schedule an appointment with her PCP for medical clearance prior to surgery. Patient was told at her last office visit with Dr. Stewart that she would need to meet with her PCP to be cleared for any type of surgery that may occur in the future. Mariah is requesting a call back to discuss what exactly we need from patient's PCP. States patient is not yet scheduled with their clinic. Mariah can be reached back at [phone] documented in this encount er Plan of Treatment Not on filedocumented as of this encounter Visit Diagnoses Not on filedocumented in this encounter"
--- OUTSIDE RECORDS SUMMARY | ~2020-03-07 | XMS | Clinical Summary ---
Demographics + + + | Address | [address] | | | [place] [address] | + + + | Home Phone | | + + + | Preferred Language | Unknown | + + + | Marital Status | Single | + + + | Buddhism Affiliation | CAT | + + + | Race | White | + + + | Ethnic Group | or | + + + Author + + + | Author | [facility] | + + + | Organization | [facility] | + + + | Address | [...] Team Providers + +------+ + | Care Crane Operator Name | Role | Phone | + +------+ + | Luiz Abel MD | PCP | | + +------+ + Source Comments [facility] is fully live on both [facility] and [facility] Allergies No Known Allergies Medications + + + +---------+------+------+-------+ | Medication | Sig | Dispensed | Refills | Star | End | Statu | | | | | | t | Date | s | | | | | | Date | | | + + + +---------+------+------+-------+ | PROAIR HFA 90 | as needed. | | 6 | 10/1 | | Activ | | mcg/actuation | | | | 9/20 | | e | | inhalation HFA | | | | 16 | | | | aerosol inhaler | | | | | | | + + + +---------+------+------+-------+ | buPROPion 100 mg | 100 mg two times | | 1 | 10/2 | | Activ | | oral tablet | daily. | | | 20 | | e | | | | | | 16 | | | + + + +---------+------+------+-------+ | fluticasone 50 | | | 0 | 11/0 | | Activ | | mcg/actuation nasal | | | | /20 | | e | | spray,suspension | | | | 16 | | | + + + +---------+------+------+-------+ | gabapentin 800 mg | 800 mg three times | | 1 | 01/18 | | Activ | | oral tablet | daily. | | | / | | e | | | | | | 16 | | | + + + +---------+------+------+-------+ | omeprazole 20 mg | 20 mg once daily. | | 5 | 10/2 | | Activ | | oral capsule,delayed | | | | 4/20 | | e | | release(DR/EC) | | | | 16 | | | + + + +---------+------+------+-------+ | traZODone 100 mg | 100 mg once daily at | | 3 | 09/0 | | Activ | | oral tablet | bedtime. | | | 11/06 | | e | | | | | | 16 | | | + + + +---------+------+------+-------+ | lisinopril 5 mg | | | 0 | 04/3 | | Activ | | oral tablet | | | | 020 | | e | | | | | | 18 | | | + + + +---------+------+------+-------+ | OXYBUTYNIN CR 15 | TAKE ONE TABLET BY | 30 | 2 | 10/0 | | Activ | | mg oral tablet | MOUTH ONE TIME DAILY | tablet | | 2/20 | | e | | extended release | | | | 19 | | | | 24hr | | | | | | | + + + +---------+------+------+-------+ | oxybutynin 5 mg | Take 1 tablet by | 60 | 0 | 10/0 | | Activ | | oral tablet | mouth twice daily as | tablet | | 2/20 | | e | | | needed. (Should | | | 19 | | | | | take no more than 20 | | | | | | | | mg daily including | | | | | | | | the long-acting | | | | | | | | dose) | | | | | | + + + +---------+------+------+-------+ Active Problems + + + | Problem | Noted Date | + + + | Mixed stress and urge urinary incontinence | 09/20/2017 | + + + | Morbid obesity | 09/20/2017 | + + + | Pelvic pain | 03/30/2016 | + + + | Complication of implanted vaginal mesh | 03/30/2016 | + + + Social History + +-------+ [...] on file | | + + + Last Filed Vital Signs + + + + + | Vital Sign | Reading | Time Taken | Comments | + + + + + | Blood Pressure | 112/76 | 09/18/2017 8:23 AM | | | | | PDT | | + + + + + | Pulse | 70 | 09/18/2017 8:23 AM | | | | | PDT | | + + + + + | Temperature | 36.7 C (98 F) | 09/18/2017 8:23 AM | | | | | PDT | | + + + + + | Respiratory Rate | - | - | | + + + + + | Oxygen Saturation | 95% | 09/18/2017 8:23 AM | | | | | PDT | | + + + + + | Inhaled Oxygen | - | - | | | Concentration | | | | + + + + + | Weight | 101.3 kg (223 lb 4.8 | 09/18/2017 8:23 AM | | | | oz) | PDT | | + + + + + | Height | 152.4 cm (5') | 09/18/2017 8:23 AM | | | | | PDT | | + + + + + | Body Mass Index | 43.61 | 09/18/2017 8:23 AM | | | | | PDT | | + + + + + Plan of Treatment + + + + + | Health Maintenance | Due Date | Last | Comments | | | | Done | | + + + + + | Mammogram | | | | | | 9 | | | + + + + + | Influenza (Flu) | | 03/20/20 | | | vaccination (#1) | 0 | 17, | | | | | 03/12/20 | | | | | 16, | | | | | 06/03/19 | | | | | 16, | | | | | Addition | | | | | al | | | | | history | | | | | exists | | + + + + + | Pneumococcal | Completed | 07/16/19 | | | vaccination | | 17, | | | | | 06/03/19 | | | | | 16 | | + + + + + Results Not on filefrom Last 3 Months Insurance + +--------+ +--------+ + +--------+ | Payer | Benefi | Subscriber | Effect | Phone | Address | Type | | | t Plan | ID | pro | | | | | | / | | Dates | | | | | | Group | | | | | | + +--------+ +--------+ + +--------+ | MEDICARE | MEDICA | [id number] | 09/18/19 | [phone] | [address] | | | RE A & | | 04-Pre | 1 | [address] | re | | | B | | sent | | [place], [place] | | | | | | | | [address] | | + +--------+ +--------+ + +--------+ | [place]ICAID [place] | OHP | [id number] | | [phone] | [address] | [address] | | | PLUS | | [address] | [phone] | [phone] | id | | | OPEN | | esent | | [place], [place] | | | | CARD | | | | [id number] | | + +--------+ +--------+ + +--------+ + +--------+ +--------+ + + | Guarantor Name | Accoun | Relation to | Date | Phone | Billing Address | | | t Type | Patient | of | | | | | | | | | | + +--------+ +--------+ + + | Coleen Bravo | Person | Self [birth year] | [address] | | | [place] | | 1950 | [phone] | [place] [address] | | | [place] | | | 1 (Home) | | + +--------+ +--------+ + +"
--- OUTSIDE RECORDS SUMMARY | ~2020-03-07 | XMS | Encounter Summary ---
Demographics + + + | Address | [address] | | | [place] [address] | + + + | Home Phone | | + + + | Preferred Language | Unknown | + + + | Marital Status | Single | + + + | Yarsanism Affiliation | CAT | + + + | Race | White | + + + | Ethnic Group | or | + + + Author + + + | Author | [facility] | + + + | Organization | [facility] | + + [...] Team Providers + +------+ + | Care Certified Physical Therapist Assistant Name | Role | Phone | + +------+ + | Luiz Abel MD | PCP | | + +------+ + Encounter Details +--------+ + + + + | Date | Type | Department | Care Team | Description | +--------+ + + + + | 11/01/ | Procedure | 6A Intra Op [address] | | | | 2017 | Pass | [address] | | | | | | [facility] | | | | | | Hospital Admitting | | | | | | Desk Located on the | | | | | | 9th floor | | | | | | [place], [place] | | | | | | [address] | | | +--------+ + + + [...]
--- OUTSIDE RECORDS SUMMARY | ~2020-03-07 | XMS | Encounter Summary ---
Demographics + + + | Address | [address] | | | [place] [address] | + + + | Home Phone | | + + + | Preferred Language | Unknown | + + + | Marital Status | Single | + + + | Jain Affiliation | CAT | + + + | Race | White | + + + | Ethnic Group | or | + + + Author + + + | Author | [facility] | + + + | Organization | [facility] | + + [...] Team Providers + +------+ + | Care Principal Mechanical Engineer Name | Role | Phone | + +------+ + | Luiz Abel MD | PCP | | + +------+ + Reason for Visit + + + | Reason | Comments | + + + | Follow-up encounter | | + + + Office Visit - E/M Services (Routine) +--------+--------+ [...] | | | | | | | [address] | | | | | complication | | [facility] | | | | | of internal | | Pavilion, [address]th | | | | | prosthetic | | floor | | | | | device, | | [place], [place] | | | | | implant and | | [address] | | | | | graft, | | Phone: | | | | | initial | | [phone] | | | | | encounter | | Fax: | | | | | Procedures | | [phone] | | | | | NM | | | | | | | CYSTOMETROGR | | | | | | | AM W/SHIP CONSTRUCTION TEACHER&UP | | | | | | | NM | | | | | | | INTRAABDOMIN | | | | | | | AL PRESSURE | | | | | | | TEST NM | | | | | | | ELECTRO-UROF | | | | | | | LOWMETRY, | | | | | | | FIRST NM | | | | | | | ANAL/URINARY | | | | | | | MUSCLE | | | | | | | STUDY NM | | | | | | | URETHROCYSTO | | | | | | | GRAM+VOIDING | | | | | | | NM | | | | | | | INJECTION | | | | | | | FOR BLADDER | | | | | | | X-RAY | | | +--------+--------+ + + + + Encounter Details +--------+---------+ + + + | Date | Type | Department | Care Team | Description | +--------+---------+ + + + | 02/04/ | Office | [facility] | Angie Stewart MD | Pelvic pain (Primary | | 2017 | Visit | [facility] | [address] | Dx); Complication | | | | [address] | [address] | of implanted vaginal | | | | [address] | [place], [place] | mesh, unspecified | | | | Pavilion, 7th floor | [address] | complication, | | | | [place], [place] | [phone] | subsequent encounter | | | | [address] | | | | | | [phone] | | | +--------+---------+ + + + [...] + + + | Blood Pressure | 132/82 | 02/04/2017 4:10 PM | | | | | PDT | | + + + + + | Pulse | 60 | 02/04/2017 4:10 PM | | | | | PDT | | + + + + + | Temperature | 36.6 C (97.9 F) | 02/04/2017 4:10 PM | | | | | PDT [...] + + + + | Weight | 100.9 kg (222 lb 8 | 02/04/2017 4:10 PM | | | | oz) | PDT | | + + + + + | Height | - | - | | + + + + + | Body Mass Index | 43.45 | 03/28/2016 2:22 PM | | | | | PST | | + + + + + documented in this encounter Patient Instructions Patient Instructions Angie Stewart MD - 02/04/2017 4:15 PM PDTSecond Opinion: Yg Correa MD [address] [id number] documented in this encounter Progress Notes Keeley, Anthony Verde MD - 02/04/2017 4:15 PM PDT [facility] Return Patient Visit Note HPI: Ms. Bravo is a reporting the following problems: Pelvic pain Ms. Bravo is a 66yo with urinary incontinence, urinary frequency, dysuria and levator myalgia who presents for follow-up evaluation. Was last seen in clinic back in October where she chose to cancel her surgery. Her history is notable for [place] sling (anterior mesh with sacrospinous and arcus tendin eus attachments)placed by Dr. Luiz Abel ([place], [place]) in 2008 for anterior vaginal wall prolapse and stress urinary incontinence. She has had persistent pelvic pain since this proc edure. Urodynamics performed in September 2016 showed detrusor overactivity with provocation (stress vishal t and filling phase), with stress urinary incontinence at 184mL with poor kegel effort. She also had borderline ISD, with MUCP of 35. At her last visit, she was encouraged to pursue pelvic floor physical therapy. She has sin ce only gone to one session. States that she knows the mesh is causing the pain. Is fairly adamant that she wants the mesh removed. The past medical history, surgical history, family history, social history, and current med ications updated in [facility]. PHYSICAL EXAM Filed Vitals: 02/04/2017 4:10 PM Weight: 100.9 kg (222 lb 8 oz) BP: 132/82 Pulse: 60 Temp: 36.6 C (97.9 F) PainSc: 04 - Moderate PainLoc: Pelvic (Bilateral) BMI: 43.45 kg/(m^2) GENERAL: Healthy Appearing, RESPIRATORY: Breathing without difficulty CARDIOVASCULAR: No pedal edema SKIN: Warm and dry ORIENTATION: Oriented to time, place, and person AFFECT: Normal ASSESSMENT AND RECOMMENDATIONS SYMPTOMS DISCUSSED Pelvic Pain 66yo with urinary incontinence, urinary frequency, dysuria and levator myalgia present s for follow-up. Has only tried one session of physical therapy. Adamantly desires mesh re moval. Discussed with patient at length again with the assistance of spanish interpreter/translator jaspreet at there is no guarantee that the mesh is the cause of her pain. Discussed that we attempte d to send her to pelvic floor physical therapy in an attempt to remove the levator myalgia c omponent that is likely contributing. We reinforced that surgery may not resolve the pain a nd that surgery, in fact, may actually make the pain worse. We again discussed that it may not be possible to remove the mesh in its entirety. She again states that she wants the mes h removed. She states that she would like to go to [place] in April to see a physician rene [place] specializes in bladder problems. We discussed that she should obtain a second opinion prior to moving forward with surgery t o ensure that she understands all of the risks involved with the procedure. She is in agree ment with this plan. Patient seen and evaluated with attending Dr Stewart. Anthony Mina MD, FPS Fellow Associated attestation - Angie Stewart MD - 02/07/2017 2:29 PM PDTI have seen and examin ed the patient. I agree with the physical exam findings as outlined by the fellow's note of 02/04/2017. I agree with the assessment and plan as outlined in the visit encounter by Dr. Nando benites.I spent 39 minutes with the patient. Greater than 50% of the time was spent counselin g the patient regarding management of pain. We discussed at length the reasons she specified at her last visit for cancelling her surge ry; she is not in agreement with our documented version of events and insists her surgery wa s cancelled because she had a fever. Before she can have surgery to remove the mesh material, which is not eroding, she must ronny w a commitment to PT for ongoing care and a recognition that this is not a simple solution. I did discuss that her expectations did not match with the reality of taking out the mesh an d that we do not have a procedure to guarantee that she will not have continued pain. Discus sed again that I could make her worse with surgery. She was very dismissive of this and woul d not maintain reasonable eye contact. At this time I am not comfortable operating on her fo r unclear indications and unclear understanding of expectations. I did provide her with the name of a second opinion to try and establish reasonable expectations of outcomes. Angie Stewart MD, MCR Sales And Merchandising Representative Division of Urogynecology and Reconstructive Pelvic Surgery Department of Blower Operator [facility] documented in this encounter Plan of Treatment Not on filedocumented as of this encounter Visit Diagnoses + + | Diagnosis | + + | Pelvic pain - Primary Unspecified symptom associated with female genital organs | + + | Complication of implanted vaginal mesh, unspecified complication, subsequent encounter | + + documented in this encounter"
--- OUTSIDE RECORDS SUMMARY | ~2020-03-07 | XMS | Encounter Summary ---
Demographics + + + | Address | [address] | | | [place] [address] | + + + | Home Phone | | + + + | Preferred Language | Unknown | + + + | Marital Status | Single | + + + | Roman Catholic Affiliation | 1041 | + + + | Race | Unknown | + + + | Ethnic Group | or | + + + Author + + + | Author | [facility] | | | and [place] | + + + | Organization | [facility] | | | and [...] Team Providers + +------+ + | Care Ornament Maker Hand Name | Role | Phone | + [...] | | | location | | [place] [address] | | | | | Positive FIT | | Phone: | | | | | (fecal | | [phone] | | | | | immunochemic | | Fax: | | | | | al test) | | [phone] | | | | | Morbid | [...] | | | | | | | [place] | | | | | | | ESOPHAGOGAST | | | | | | | RODUODENOSCO | | | | | | | PY TRANSORAL | | | | | | | DIAGNOSTIC | | | | | | | [place] EGD | | | | | | | TRANSORAL | | | | | | | BIOPSY | | | | | | | SINGLE/MULTI | | | | | | | PLE [place] | | | | | | | COLONOSCOPY | | | | | | | FLX DX | | | | | | | W/COLLJ SPEC | | | | | | | WHEN PFRMD | | | | | | | [place] | | | | | | | COLONOSCOPY | | | | | | | W/BIOPSY | | | | | | | SINGLE/MULTI | | | | | | | PLE [place] | | | | | | | COLSC FLX | | | | | | | W/RMVL OF | | | | | | | TUMOR POLYP | | | | | | | LESION SNARE | | | | | | | TQ [place] | | | | | | | [...] Description | +--------+---------+ + + + | 01/20/ | Surgery | [facility] | Wilfrido Fairchild | EMILY | | 2019 | | MED CTR MP INTRA OP | MD Odilia [address] | | | | | [address] | [facility] | | | | | [place] | [place] [address] | | | | | [address] | [phone] | | | | | [phone] | | | +--------+---------+ + + + [...] + + + | Blood Pressure | 131/102 | 01/20/2019 8:45 AM | | | | | PDT | | + + + + + | Pulse | 69 | 01/20/2019 8:45 AM | | | | | PDT | | + + + + + | Temperature | 36.2 C (97.2 F) | 01/20/2019 8:45 AM | | | | | PDT | | + + + + + | Respiratory Rate | 18 | 01/20/2019 8:45 AM | | | | | PDT | | + + + + + | Oxygen Saturation | 98% | 01/20/2019 8:45 AM | | | [...] | lisinopril | | | 0 | 04/30/20 | | | (PRINIVIL, ZESTRIL) | | [...] mg by mouth | | 0 | 12/09/19 | | | (ZOFRAN ODT) 4 mg [...] Heme + stool. Had negative CT in [facility]. Symptoms have actually improved, now stating that she is constipated. [facility]o [facility]. Denies any FH of CRC. Consent obtained with recreation program coordinator PAST HISTORY: Past Medical History: Diagnosis Date [...] 40-49.9 (morbid obesity) LISHA on CPAP Hypertension Angu[place] as primary spoken language PAST SURGICAL HISTORY [...] Class 2 (upper half of tonsil fossa) [place] [employer] Anesthesia Grade:ASA 3 - A [...] Electronically Signed by: Wilfrido Fairchild MD 01/20/2019 [facility] VERIFICATION OF CONSENT (PARQ) The patient counseled regarding the procedure, its indications, risks, potential complicati ons and alternatives. Any questions were answered. Consent was obtained. Wilfrido Fairchild MD, 01/20/2019 9:42 [facility] Portions of this chart may have been created with Dragon Inside voice recognition software. Occasi onal wrong-word or sound-alike substitutions may have occurred due to the inherent suero itations of voice recognition software. Please read the chart carefully and recognize, using context, where these substitutions have occurred documented in thi s encounter Miscellaneous Notes D-C Instructions Provation - Wilfrido Fairchild MD - 01/20/2019 9:33 AM PDTDischajaredge Ins tructions for Upper Endoscopy Patient: Coleen Bravo : 1950 Acct: [id number] Exam Date: Sunday, January 20, 2019 Doctor: [...] If unable to reach your physician, call [facility] Emergency Department at [address] Your doctor [...] Exams Patient: Coleen Bravo : 1950 Acct: [id number] Exam Date: Sunday, January 20, 2019 Doctor: [...] If unable to reach your physician, call [facility] Emergency Department at [address] Your doctor [...] of | | | malignancy or atypia. LJA:[facility] FINAL PATHOLOGIC DIAGNOSIS: A. | | | Mucosa, stomach, biopsy: - Minimal inactive chronic gastritis. - | | | Negative for the presence of bacteria morphologically consistent | | | with Helicobacter on HE stained sections. B. Mucosa, colon, | | | multiple random biopsies: - Mild melanosis coli. C. Mucosa, | | | transverse colon, biopsy: - Tubular adenoma. LJA:[facility]:C2NR | | | GROSS DESCRIPTION: Three specimens [...] component was | | | performed by [facility], [address] [place] [address] | | | (Make Up Girl: Domonique Fields MD; CLIA# [id number]). | | | Diagnostician: Néstor Smith MD [...] | [facility] | | GastroenterologyPatient Name: Coleen MendenhallsProcedmorales Date: 01/20/2019 | [facility] | | 9:33 AMMRN: [id number] #: [id number] of : | | | 1950dmit Type: AmbulatoryAge: 68Room: Endo Room 1Gender: | | | FemaleNote Status: FinalizedAttending MD: WILFRIDO FAIRCHILD , | | | MDProcedure: Upper GI endoscopyIndications: | | | Epigastric abdominal painProviders: WILFRIDO FAIRCHILD, | | | MD, Gabi Caruso RN, Ingrid Chan, | | | Merchandising Consultant, Keith Larsen MD (Anesthesia Staff)Referring MD: | [...] AMScope Out: 9:54:31 | | | AM [facility], [address] | | | [place] [address] | | | - Normal cardia, gastric [...] |Scope Out: 9:54:31 AM | | | [facility], [facility] [address] [place], [place] | | | [address] | | + + -+ + +---------+ + + | Performing | Address | City/State/[facility] Centercode | Phone Number | | Organization | | | | + +---------+ + + | [facility] | | | | + +---------+ + + COLONOSCOPY (01/20/2019 9:30 AM PDT) + + | Specimen | + + | | + + + + ---+ | Narrative | Performed At | + + ---+ | | [facility] | | GastroenterologyPatient Name: Coleen MendenhallsProcedmorales Date: 01/20/2019 | [place] | | 9:30 AMMRN: [id number] #: [id number] of : | | | 9Admit Type: AmbulatoryAge: 68Room: Endo Room 1Gender: | | | FemaleNote Status: FinalizedAttending MD: WILFRIDO FAIRCHILD , | | | MDProcedure: ColonoscopyIndications: Generalized | | | abdominal pain, Heme positive stool, | | | Incidental change in bowel habits notedProviders: WILFRIDO | | | ODILIA FAIRCHILD MD, Gabi Caruso RN, Ingrid Santana | | | Rocio, Merchandising Consultant, Keith Larsen MD (Anesthesia Staff)Referring | | [...] | preparation was evaluated using the BBPS ([place] Bowel | | | Preparation Scale) with [...] | | 9:56:32 AMScope Out: 10:10:08 AM [facility] | | | [place], [address] [place] [address] | | | - The patient will [...] |Scope Out: 10:10:08 AM | | | [facility], [address], [place], [place] | | | [address] | | + + ---+ + +---------+ [...] 19 9:42 | | | | | e 01/20/19 at 0942 | | AM PDT [...]
--- OUTSIDE RECORDS SUMMARY | ~2020-03-07 | XMS | Encounter Summary ---
Demographics + + + | Address | [address] | | | [place] [address] | + + + | Home Phone | | + + + | Preferred Language | Unknown | + + + | Marital Status | Single | + + + | Restoration Affiliation | CAT | + + + | Race | White | + + + | Ethnic Group | or | + + + Author + + + | Author | [facility] | + + + | Organization | [facility] | + + + [...] Team Providers + +------+ + | Care Ammunition Storekeeper Name | Role | Phone | + +------+ + | Luiz Abel MD | PCP | | + +------+ + Reason for Visit +--------+--------+ + | Reason | Onset | Comments | | | Date | | +--------+--------+ + | Other | 07/12/ | | | | 2017 | | +--------+--------+ + Encounter Details +--------+ + + + + | Date | Type | Department | Care Team | Description | +--------+ + + + + | 02/23/ | Telephone | [facility] | Angie Stewart MD | Other | | 2018 | | [facility] | [address] | | | | | [address] | [address] | | | | | [address] | [place], [place] | | | | | [address], [address] floor | [address] | | | | | [place], [place] | [phone] | | | | | [address] | | | | | | [phone] | | | +--------+ + + + [...] this encounter Miscellaneous Notes Telephone Encounter - Lisa Luciano RN - 07/12/2017 10:30 AM PSTCall to pt with medical interpreter . Pt states she would like to proceed with the surgery that was discussed at visit with Dr Evans in January. Pt was seen for mesh removal evaluation due to pain Per visit notes,pt was to get a second opinion from other provider. Pt states she did not get that second opinion. Due to immigration, she did not go [facility] to see other doctor. She has had pneumonia and was recovering for that, so did not have t nita to go to other provider that Dr Stewart recommended for second opinion. Yg Correa MD Pt was advised to get second opinion and or schedule follow up appt at [facility] . Pt verbally re luctant to see another provider as she states that will take time and she "needs" the surger y. Pt agreed to schedule follow up visit at [facility] and states will contact her PCP as well. Will route to scheduling to schedule next available return visit. Pt understands that she m ay not be seen for a couple of months. elephone Encounter - Kadie Cannon - 07/12/2017 10:09 AM PSTPatient called in stating she wants to go ahead and have the surgery scheduled again that she had cancelled last October regarding her vaginal mesh. Patient states she is having pain and issues again. Unsure if patient will need maria t tional evaluation beforehand or if surgery can be rescheduled without follow up first. Buddy hood will need call back with medical interpreter. She requests call back at [phone] ronically signed by Kadie Cannon at 07/12/2017 10:10 AM PSTdocumented in this encounter Plan of Treatment Not on filedocumented as of this encounter Visit Diagnoses Not on filedocumented in this encounter
--- OUTSIDE RECORDS SUMMARY | ~2020-03-07 | XMS | Encounter Summary ---
Demographics + + + | Address | [address] | | | [place] [address] | + + + | Home Phone | | + + + | Preferred Language | Unknown | + + + | Marital Status | Single | + + + | Zoroastrianism Affiliation | 1041 | + + + | Race | Unknown | + + + | Ethnic Group | or | + + + Author + + + | Author | [facility] | | | and [place] | + + + | Organization | [facility] | | | [...] Team Providers + +------+ + | Care Addiction Specialist Name | Role | Phone | + [...] Provider Unknown | | | | | [place], [place] | | | | | | [address] | | | | | | | [...] | + +--------+ + + + | XR LUMBAR SPINE 4 + | Routin | 06/22/2016 | | Results for this | | VW | e | 11:30 PM | | procedure are in the | | | | PST | | results section. | + +--------+ + + + documented in this encounter Results XR Lumbar Spine 4 + Vw (06/22/2016 11:30 PM PST) + + | Specimen | + + | | + + + + + | Narrative | Performed At | + + + | This is a non-reportable procedure without a radiologist report and | | | is used for image storage only | | + + + + + | Procedure Note | + + | Adal Myers Conversion - 01/01/2019 2:14 AM PDT This is a non-reportable procedure | | without a radiologist report and isused for image storage only | + + documented in this encounter Visit Diagnoses + + | Diagnosis | + + | Pain Generalized pain | + + documented in this encounter"
--- OUTSIDE RECORDS SUMMARY | ~2020-03-07 | XMS | Encounter Summary ---
Demographics + + + | Address | [address] | | | [place] [address] | + + + | Home Phone | | + + + | Preferred Language | Unknown | + + + | Marital Status | Single | + + + | Anglican Affiliation | CAT | + + + | Race | White | + + + | Ethnic Group | or | + + + Author + + + | Author | [facility] | + + + | Organization | [facility] | + + + [...] Team Providers + +------+ + | Care Teacher Advisor Name | Role | Phone | + +------+ + | Luiz Abel MD | PCP | | + +------+ + Reason for Referral Consult to [place] (Routine) +--------+--------+ + + + + | Status | Reason | Specialty | Diagnoses / | Referred By | Referred To | | | | | Procedures | Contact | Contact | +--------+--------+ + + + + | Closed | | Obstetrics & | Diagnoses | Alejandra | [facility] | | | | Gynecology | Urge | Indira Gallegos, | [address] | | | | | incontinence | MD [address] | [address] | | | | | Erosion of | Rhianna Victoria | [facility] | | | | | implanted | Malena Donaldson | [address] | | | | | vaginal mesh | [place], [place] | floor | | | | | to | [address] | [place], [place] | | | | | surrounding | Phone: | [phone] | | | | | organ or | [phone] | Phone: | | | | | tissue, | Fax: | [phone] | | | | | initial | [phone] | Fax: | | | | | encounter | | [phone] | | | | | Procedures | | | | | | | REQUEST TO | | | | | | | SURGERY | | | | | | | INDUSTRIAL MAINTENANCE TECHNICIAN | | | | | | | HI CHNG VGNL | | | | | | | GRAFT | | | +--------+--------+ + + + + Reason for Visit [...] | | | | | | | [address] | | | | | complication | | [facility] | | | | | of internal | | [address] | | | | | prosthetic | | floor | | | | | device, | | [place], [place] | | | | | implant and | | [address] | | | | | graft, | | Phone: | | | | | initial | | [phone] | | | | | encounter | | Fax: | | | | | Procedures | | [phone] | | | | | HI | | | | | | | CYSTOMETROGR | | | | | | | AM W/TRUCK TECHNICIAN&UP | | | | | | | HI | | | | | | | INTRAABDOMIN | | | | | | | AL PRESSURE | | | | | | | TEST HI | | | | | | | ELECTRO-UROF | | | | | | | LOWMETRY, | | | | | | | FIRST HI | | | | | | | ANAL/URINARY | | | | | | | MUSCLE | | | | | | | STUDY HI | | | | | | | URETHROCYSTO | | | | | | | GRAM+VOIDING | | | | | | | HI | | | | | | | INJECTION | | | | | | | FOR BLADDER | | | | | | | X-RAY | | | +--------+--------+ + + + + Encounter Details +--------+---------+ + + + | Date | Type | Department | Care Team | Description | +--------+---------+ + + + | 09/26/ | Office | [facility] | Agnie Stewart MD | Chronic bladder pain | | 2017 | Visit | [facility] | [address] | (Primary Dx); | | | | [address] | [address] | Complication of | | | | [address] | [place], [place] | implanted vaginal | | | | Pavilion, 7th floor | [address] | mesh, unspecified | | | | [place], [place] | [phone] | complication, | | | | [address] | | initial encounter | | | | [phone] | | | +--------+---------+ + + + [...] + + documented as of this encounter Progress Hannah Castaneda RN - 09/26/2016 2:00 PM PDTPer delegation protocol: Pt voided 132 mL of ur ine. Pt urethra prepped with betadine. 14 upper sorbian straight cath through pts external urethra. 10 mL of clear yellow urine collected for PVR. UA performed on specimen. T-DOC air charged catheters placed in urethra and vagina. EMG electrodes placed around external anal sphincter . Indira Ram MD - 09/26/2016 2:00 PM PDTReturn Urogynecology Visit 09/26/2016 HPI: Ms. Bravo is a 66yo with urinary incontinence, urinary frequency, dysuria and l evator myalgia presenting for urodynamics. Her history is notable for [place] sling (anterior mesh with sacrospinous and arcus tendin eus attachments)placed by Dr. Luiz Abel ([place], [place]) in 2009 for anterior vaginal wall prolapse and stress urinary incontinence. REVIEW OF SYSTEMS GENERAL: Negative ENT: Negative EYES: Negative MUSCULOSKELETAL: Negative GI: Negative CV: High Blood Pressure RESP: Negative PSYCH: Depression ENDOCRINE: Negative HEMATOLOGIC: Negative PHYSICAL EXAM GENERAL: No acute distress NECK: No thyromegaly RESPIRATORY: Breathing without difficulty CARDIOVASCULAR: No pedal edema ABDOMEN: Obese SKIN: Warm and dry NEUROLOGIC GAIT: Normal SACRAL SENSATION: Grossly Intact ORIENTATION: Oriented to time, place, and person AFFECT: Normal GENERAL PELVIC EXAM EXTERNAL GENITALIA: Normal External Genitalia URETHRA: Normal BLADDER: Non tender to palpation VAGINA mesh palpable beneath mucosa but not tender PELVIC FLOOR MUSCLE TESTS The levator muscles were also assessed. By palpating the levator ani muscles transvaginall y while contracted, the following was noted: TEST: PELVIC FLOOR COORDINATION: Unable to fully relax TEST: RIGHT PELVIC FLOOR MUSCLE TE NDERNESS?: Moderate TEST: LEFT PELVIC FLOOR MUSCLE TENDERNESS?: Moderate BLADDER FUNCTION EVALUATION TESTS DIPSTICK URINALYSIS LEUKOCYTES: neg NITRITES: neg PROCEDURE: URODYNAMICS A spontaneous uroflow was performed with a flowmeter and no instrumentation in private. VOLUME VOIDED (ML): 131 VOID TIME (SEC): 14 FLOW TIME (SEC): 12.6 MAXIMUM FLOW RATE (ML/SEC): 26.7 CATHETERIZED POST VOID RESIDUAL (ML): 10 VOID STREAM Continuous + Smooth A complex multichannel CMG was performed in the sitting position at 45 degrees using air ch arged catheters with a retrograde fill rate of 100 ml/min or less. Water was at room tempera ture. URINE DIPSTICK: LEUKOCYTE ESTERASE neg URINE DIPSTICK: NITIRITES neg VOLUME AT FIRST DESIRE (ML) 166 VOLUME AT STRONG DESIRE (ML) 180 BLADDER CAPACITY (ML) 202 STRESS LEAK OCCURRED WITH VALSALVA OR COUGH? Yes UNINHIBITED DETRUSOR CONTRACTIONS? Yes BLADDER COMPLIANCE normal BLADDER SENSATION normal BLADDER CAPACITY NORMAL? abnormal We performed Valsalva [place] Pressures at 150 ml bladder volume and again at 300 ml (or capacity). The following are findings: LEAK AT 150 ML Leak VLPP VESICAL PRESSURE (CM H2O) AT 150 ML 174 VLPP VESICAL PRESSURE CHANGE FROM BASELINE AT 150 ML BLADDER VOLUME (CM H2O) 126 We performed urethra pressure profiles at rest and with coughing at maximal bladder capacit y. The catheter was pulled at a rate of 1 mm/sec. The following are findings: MAXIMUM URETHRAL CLOSURE PRESSURE (CM H2O): 35 STRESS COUGH PROFILE LEAK?: leak demonstrated TRANSMISSION PROFILE?: positive transmission We performed a voiding pressure study using vesical, urethral and abdominal pressure transd ucers. The following are findings: VOIDING MECHANISM: detrusor contraction, urethral relaxation and valsalva OPENING DETRUSOR PRESSURE (CM H2O): -3.7 MAXIMUM DETRUSOR PRESSURE (CM H2O): 11.9 DETRUSOR PRESSURE AT MAXIMUM FLOW RATE (CM H2O): -9.8 URINE FLOW PATTERN DURING PRESSURE/VOLUME STUDY: Intermittent COMMENTS: DO with provocation (stress test and filling phase). COLTON at 184mL, though with poor kegel e ffort. Borderline ISD. Final Urodynamic Impressions: URETHRAL FUNCTION: Borderline sphincter deficiency URETHRAL MOBILITY: Visibly mobile DETRUSOR OVERACTIVITY?: Yes VOIDING DYSFUNCTION?: Normal Voiding function Images of the Urodynamic study can be found in the Media tab. ASSESSMENT MULT. DX/TX OPTIONS SYMPTOMS DISCUSSED Mixed incontinence Continuous Wetness Frequency Dysuria PHYSICAL FINDINGS Obesity Levator Myalgia Unable to relax pelvic floor DATA/ LAB TESTS REVIEWED/ORDERED Levator Myalgia Assessment Post Void Residual Uroflow CMG Urethral Pressure Profile Voiding Study TEST FINDINGS DISCUSSED TODAY Detrusor Overactivity Borderline Urethral Function Stress incontinence 66yo with urinary incontinence, urinary frequency, dysuria and levator myalgia. Urody namics today shows detrusor overactivity, particularly with provocation with stress test and with bladder filling. Component of stress leakage which I suspect is a combination of bord puja ISD and inability to effectively kegel due to chronically high resting pelvic muscle tone. She has significant levator tenderness but has no pain to palpation of her anterior m esh. These findings discussed with patient at length with educational sign language interpreter. We explained that her pain and detrusor overactivity are unlikely to resolve with removal of vaginal mesh and in fact may worsen. We are recommending pelvic physical therapy as well as consideration o f medications for bladder spasm as first line therapy. However, pt strongly desires mesh rem oval. We again reiterated that mesh removal will not resolve her pain and may make her urin my symptoms worse. However, patient has expressed that it does not matter what I am lik e after. I want the mesh out of my body. Will proceed with mesh revision per pt desires . She is aware we may not be able to remove all of the mesh. RECOMMENDATIONS Sling removal or revision [id number] Cystoscopy 77164 - Surgical request placed for procedure on 11/01/16 in [facility] due to medical comorbidities - Preop labs and EKG to be done locally with PCP - PMC visit and Preop visit day prior to surgery given her distance to [facility] Pt seen with Dr. Stewart, who agrees with the assessment and plan. Garima Roberts MD Female Pelvic Medicine and Reconstructive Surgery Fellow I have seen and examined the patient. I agree with the physical exam findings as outlined by the fellow's note of 09/26/2016. I supervised all procedures in their entirety as lavell hines. I agree with the assessment and plan as outlined in the visit encounter by Dr. Iggy gallegos.I spent 25 minutes [id number]-fqag with the patient exclusive of the procedure. I spent more than 50% of this visit in counseling the patient regarding management of pelvic pain. We re viewed very specifically with an healthcare interpreter that there is likely to be mesh left behind if we try and remove it and that her pain is likely to not change at all with this procedure. S he acknowledged this and stated her desire was to have the mesh removed. Angie Stewart MD, [facility] Conservation Worker Division of Urogynecology and Reconstructive Pelvic Surgery Department of Stained Glass Installer [facility] documented in this enc ounter Plan of Treatment Not on filedocumented as of this encounter Procedures + +--------+ + + + | Procedure Name | Priori | Date/Time | Associated Diagnosis | Comments | | | ty | | | | + +--------+ + + + | HI CYSTOMETROGRAM | Routin | 09/26/2016 | Complication of | | | W/TRUCK TECHNICIAN&UP - GLOBAL | e | 3:03 PM | implanted vaginal | | | | | PDT | mesh, unspecified | | | | | | complication, | | | | | | initial encounter | | + +--------+ + + + | HI INTRAABDOMINAL | Routin | 09/26/2016 | Complication of | | | VOIDING PRESSURE | e | 3:03 PM | implanted vaginal | | | STUDY,AP,GLOBAL | | PDT | mesh, unspecified | | | | | | complication, | | | | | | initial encounter | | + +--------+ + + + | HI ANAL/URETHRAL SPH | Routin | 09/26/2016 | Complication of | | | MUSC STUDY,GLOBL | e | 3:03 PM | implanted vaginal | | | | | PDT | mesh, unspecified | | | | | | complication, | | | | | | initial encounter | | + +--------+ + + + | HI | Routin | 09/26/2016 | Complication of | | | UROFLOWMETRY,COMPLEX | e | 3:03 PM | implanted vaginal | | | ,GLOBAL | | PDT | mesh, unspecified | | | | | | complication, | | | | | | initial encounter | | + +--------+ + + + | UA DIPSTICK 10 DIP | Routin | 09/26/2016 | Chronic bladder | Results for this | | W/O MICRO | e | 12:47 PM | pain | procedure are in the | | (AUTOMATED), POC | | PDT | | results section. | + +--------+ + + + | ORDERS OTHER | | 09/26/2016 | | Results for this | | | | 12:00 AM | | procedure are in the | | | | PDT | | results section. | + +--------+ + + + documented in this encounter Results UA 10 DIP, POC (09/26/2016 12:47 PM PDT) + + + + + + | Component | Value | Ref Range | Performed | Pathologist | | | | | At | Signature | + + + + + + | COLOR (UA | Yellow | | [facility] - | | | DIP), POC | | | [facility] | | | | | | [place] [place] | | | | | | OF CARE | | | | | | TESTS | | + + + + + + | APPEARANCE | Clear | | [facility] - | | | (UA DIP), | | | [facility] | | | POC | | | [facility] | | | | | | OF CARE | | | | | | TESTS | | + + + + + + | LEUKOCYTES | Negative | Negative | [facility] - | | | (UA DIP), | | | [facility] | | | POC | | | [place] [place] | | | | | | OF CARE | | | | | | TESTS | | + + + + + + | NITRITES | Negative | Negative | [facility] - | | | (UA DIP), | | | [facility] | | | POC | | | [place] [place] | | | | | | OF CARE | | | | | | TESTS | | + + + + + + | UROBILINOGE | 0.2 | 0.2 - 1.0 | [facility] - | | | N (UA DIP), | | E.U./dL | [facility] | | | POC | | | [facility] | | | | | | OF CARE | | | | | | TESTS | | + + + + + + | PROTEIN (UA | Negative | Neg - Trace | [facility] - | | | DIP), POC | | mg/dL | [facility] | | | | | | [facility] | | | | | | OF CARE | | | | | | TESTS | | + + + + + + | PH (UA | 5.0 | 5.0 - 8.0 | [facility] - | | | DIP), POC | | | [facility] | | | | | | [facility] | | | | | | OF CARE | | | | | | TESTS | | + + + + + + | BLOOD (UA | Moderate (A) | Negative | [facility] - | | | DIP), POC | | | [facility] | | | | | | [place] [place] | | | | | | OF CARE | | | | | | TESTS | | + + + + + + | SPECIFIC | >=1.030 (A) | 1.005 - 1.030 | [facility] - | | | GRAVITY (UA | | | [facility] | | | DIP), POC | | | [facility] | | | | | | OF CARE | | | | | | TESTS | | + + + + + + | KETONES (UA | Negative | Negative mg/dL | [facility] - | | | DIP), POC | | | [facility] | | | | | | [place] | | | | | | OF CARE | | | | | | TESTS | | + + + + + + | BILIRUBIN | Negative | Negative | [facility] - | | | (UA DIP), | | | [facility] | | | POC | | | [place] | | | | | | OF CARE | | | | | | TESTS | | + + + + + + | GLUCOSE (UA | Negative | Negative - | [facility] - | | | DIP), POC | | Trace mg/dL | [facility] | | | | | | [facility] | | | | | | OF CARE | | | | | | TESTS | | + + + + + + + + | Specimen | + + | Urine - Urine | | (substance) | + + + + + + + | Performing | Address | City/State/Zipcode | Phone Number | | Organization | | | | + + + + + | [facility] | [address] | [place], [place] | | | [facility] [place] | [address] | [address] | | | TESTS | | | | + + + + + ORDERS OTHER (09/26/2016 12:00 AM PDT) + + + | Narrative | Performed At | + + + | | | + + + documented in this encounter Visit Diagnoses + + | Diagnosis | + + | Chronic bladder pain - Primary | + + | Complication of implanted vaginal mesh, unspecified complication, initial encounter | + + documented in this encounter"
--- OUTSIDE RECORDS SUMMARY | ~2020-03-07 | XMS | Encounter Summary ---
Demographics + + + | Address | [address] | | | [place] [address] | + + + | Home Phone | | + + + | Preferred Language | Unknown | + + + | Marital Status | Single | + + + | Druze Affiliation | CAT | + + + | Race | White | + + + | Ethnic Group | or | + + + Author + + + | Author | [facility] | + + + | Organization | [facility] | + + + [...] Team Providers + +------+ + | Care Early Morning Name | Role | Phone | + +------+ + | Luiz Abel MD | PCP | | + +------+ + Reason for Visit + + + | Reason | Comments | + + + | Refill Request | | + + + Encounter Details +--------+--------+ + + + | Date | Type | Department | Care Team | Description | +--------+--------+ + + + | 02/17/ | Refill | [facility] | Indira Roberts | Refill Request | | 2019 | | [facility] | MD Nydia [address] [facility] | | | | | [address] | [facility] | | | | | [address] | [place], [place] | | | | | [address], [facility] floor | [address] | | | | | [place], [place] | [phone] | | | | | [address] | | | | | | [phone] | | | +--------+--------+ + + + [...] this encounter Miscellaneous Notes Telephone Encounter - Heydi Douglass MA - 02/18/2019 8:51 AM PDT Refill request received from [facility] pharmacy for : Requested Prescriptions Pending Prescriptions Disp Refills OXYBUTYNIN 5 mg oral tablet [Pharmacy Med Name: Oxybutynin Chloride 5 Mg Tab Upsh] 60 t ablet 0 Sig: TAKE ONE TABLET BY MOUTH TWICE DAILY Last refill: 05/16/2018 Last visit: 09/18/2017 Next visit: No future visit scheduled Last mammogram: Pharmacy verified and order pended. Routing to Dr. Ravi and Dr. Man for review/author ization. documented in this en counter Plan of Treatment Not on filedocumented as of this encounter Visit Diagnoses Not on filedocumented in this encounter"
--- OUTSIDE RECORDS SUMMARY | ~2020-03-07 | XMS | Encounter Summary ---
Demographics + + + | Address | [facility] [address] [address] | | | [place] [address] | + + + | Home Phone | | + + + | Preferred Language | Unknown | + + + | Marital Status | Single | + + + | Hinduism Affiliation | 1041 | + + + | Race | Unknown | + + + | Ethnic Group | or | + + + Author + + + | Author | [facility] | | | and [place] | + + + | Organization | [facility] | | | [...] Team Providers + +------+ + | Care Sterile Processing Tech Name | Role | Phone | + +------+ + | Jeannette Meza | PCP | | + +------+ + Encounter Details +--------+ + + + + | Date | Type | Department | Care Team | Description | +--------+ + + + + | 01/06/ | Abstract | [facility] | Wilfrido Orozco | | | 2018 | | GASTROENTEROLOGY | MD Man[address] | | | | | [address] [place] | [address] | | | | | [address] | [place] [address] | | | | | [address] | [phone] | | | | | [phone] | | | +--------+ + + + [...] | + +--------+ + + + | EXTERNAL LAB: WONG | Routin | 12/06/2018 | | Results for this | | | e | | | procedure are in the | | | | | | results section. | + +--------+ + + + | EXTERNAL LAB: | Routin | 12/06/2018 | | Results for this | | GLUCOSE | e | | | procedure are in the | | | | | | results section. | + +--------+ + + + | EXTERNAL LAB: LIPASE | Routin | 12/06/2018 | | Results for this | | | e | | | procedure are in the | | | | | | results section. | + +--------+ + + + | EXTERNAL LAB: ALT | Routin | 12/06/2018 | | Results for this | | | e | | | procedure are in the | | | | | | results section. | + +--------+ + + + | EXTERNAL LAB: AST | Routin | 12/06/2018 | | Results for this | | | e | | | procedure are in the | | | | | | results section. | + +--------+ + + + | EXTERNAL LAB: | Routin | 12/06/2018 | | Results for this | | ALKALINE PHOSPHATASE | e | | | procedure are in the | | | | | | results section. | + +--------+ + + + | EXTERNAL LAB: | Routin | 12/06/2018 | | Results for this | | ALBUMIN | e | | | procedure are in the | | | | | | results section. | + +--------+ + + + | EXTERNAL LAB: | Routin | 12/06/2018 | | Results for this | | PROTEIN, TOTAL | e | | | procedure are in the | | | | | | results section. | + +--------+ + + + | EXTERNAL LAB: | Routin | 12/06/2018 | | Results for this | | CALCIUM | e | | | procedure are in the | | | | | | results section. | + +--------+ + + + | EXTERNAL LAB: CARBON | Routin | 12/06/2018 | | Results for this | | DIOXIDE | e | | | procedure are in the | | | | | | results section. | + +--------+ + + + | EXTERNAL LAB: | Routin | 12/06/2018 | | Results for this | | CHLORIDE | e | | | procedure are in the | | | | | | results section. | + +--------+ + + + | EXTERNAL LAB: | Routin | 12/06/2018 | | Results for this | | POTASSIUM | e | | | procedure are in the | | | | | | results section. | + +--------+ + + + | EXTERNAL LAB: SODIUM | Routin | 12/06/2018 | | Results for this | | | e | | | procedure are in the | | | | | | results section. | + +--------+ + + + | EXTERNAL LAB: | Routin | 12/06/2018 | | Results for this | | URINALYSIS | e | | | procedure are in the | | | | | | results section. | + +--------+ + + + | EXTERNAL LAB: CBC | Routin | 12/06/2018 | | Results for this | | | e | | | procedure are in the | | | | | | results section. | + +--------+ + + + | EXTERNAL LAB: CBC | Routin | 12/06/2018 | | Results for this | | | e | | | procedure are in the | | | | | | results section. | + +--------+ + + + | EXTERNAL LAB: EGFR | Routin | 12/06/2018 | | Results for this | | | e | | | procedure are in the | | | | | | results section. | + +--------+ + + + | EXTERNAL LAB: | Routin | 12/06/2018 | | Results for this | | CREATININE | e | | | procedure are in the | | | | | | results section. | + +--------+ + + + | MICROALBUMIN/CREATIN | Routin | 12/06/2018 | | Results for this | | INE RATIO, URINE | e | | | procedure are in the | | TEST | | | | results section. | + +--------+ + + + | CBC WITH | Routin | 12/06/2018 | | Results for this | | DIFFERENTIAL | e | | | procedure are in the | | | | | | results section. | + +--------+ + + + | COMPREHENSIVE | Routin | 12/06/2018 | | Results for this | | METABOLIC PANEL | e | | | procedure are in the | | | | | | results section. | + +--------+ + + + | OCCULT BLOOD, FECAL | Routin | 09/08/2018 | | Results for this | | IMMUNOCHEMICAL TEST | e | | | procedure are in the | | (FIT) | | | | results section. | + +--------+ + + + documented in this encounter Results CBC with Differential (12/06/2018) + +-------+ + + + | Component | Value | Ref Range | Performed | Pathologist | | | | | At | Signature | + +-------+ + + + | MCH | 33.6 | 25.0 - 34.0 pg | | | + +-------+ + + + | MCHC | 34.3 | 32.0 - 36.0 | | | | | | g/dL | | | + +-------+ + + + | % Basophils | 0.5 | 0.0 - 3.0 % | | | + +-------+ + + + + + | Specimen | + + | Blood | + + Comprehensive Metabolic Panel (12/06/2018) + +-------+ + + + | Component | Value | Ref Range | Performed | Pathologist | | | | | At | Signature | + +-------+ + + + | Anion Gap | 11 | 5 - 12 mmol/L | | | + +-------+ + + + | Globulin | 3.1 | 2.3 - 3.5 gm/dL | | | + +-------+ + + + | Albumin/Janet | 1.4 | 1.10 - 1.80 | | | | bulin Ratio | | Ratio | | | + +-------+ + + + + + | Specimen | + + | Blood | + + External Lab: CBC (12/06/2018) + + + + + + | Component | Value | Ref Range | Performed | Pathologist | | | | | At | Signature | + + + + + + | HGB, | 13.3 | 11.5 - 15.5 | EXTERNAL | | | External | | | LAB | | + + + + + + | HCT, | 38.8 | 36 - 46 | EXTERNAL | | | External | | | LAB | | + + + + + + | PLT, | 228 | 150 - 450 | EXTERNAL | | | External | | | LAB | | + + + + + + | Neutrophils | 81.8 (A) | 40 - 70 | EXTERNAL | | | %, | | | LAB | | | External | | | | | + + + + + + | Lymphocytes | 11.2 (A) | 25 - 45 | EXTERNAL | | | %, | | | LAB | | | External | | | | | + + + + + + | Monocytes | 4.2 | 0 - 10 | EXTERNAL | | | %, External | | | LAB | | + + + + + + | Eosinophils | 2.4 | 0 - 3 | EXTERNAL | | | %, | | | LAB | | | External | | | | | + + + + + + | Neutrophils | 6.8 | 1.8 - 7.7 | EXTERNAL | | | , Absolute, | | | LAB | | | External | | | | | + + + + + + | Lymphocytes | 1.2 | 1 - 4.8 | EXTERNAL | | | , Absolute, | | | LAB | | | External | | | | | + + + + + + | Monocytes, | 0.4 | 0 - 0.8 | EXTERNAL | | | Absolute, | | | LAB | | | External | | | | | + + + + + + | Eosinophils | 0.2 | 0 - 0.45 | EXTERNAL | | | , Absolute | | | LAB | | + + + + + + | Basophils, | 0.0 | 0 - 2 | EXTERNAL | | | Absolute | | | LAB | | + + + + + + | RBC, | 4.0 (A) | 4.2 - 5.4 | EXTERNAL | | | External | | | LAB | | + + + + + + | MCV, | 98 | 80 - 100 | EXTERNAL | | | External | | | LAB | | + + + + + + | RDW, | 13.3 | 11.5 - 15.5 | EXTERNAL | | | External | | | LAB | | + + + + + + + +---------+ + + | Performing | Address | City/State/Zipcode | Phone Number | | Organization | | | | + +---------+ + + | EXTERNAL LAB | | | | + +---------+ + + External Lab: CBC (12/06/2018) + +-------+ + + + | Component | Value | Ref Range | Performed | Pathologist | | | | | At | Signature | + +-------+ + + + | WBC, | 8.7 | 4.5 - 11 | EXTERNAL | | | External | | | LAB | | + +-------+ + + + + +---------+ + + | Performing | Address | City/State/Zipcode | Phone Number | | Organization | | | | + +---------+ + + | EXTERNAL LAB | | | | + +---------+ + + External Lab: AST (12/06/2018) + +--------+ + + + | Component | Value | Ref Range | Performed | Pathologist | | | | | At | Signature | + +--------+ + + + | AST, | 38 (A) | 5 - 34 | EXTERNAL | | | External | | | LAB | | + +--------+ + + + + +---------+ + + | Performing | Address | City/State/Zipcode | Phone Number | | Organization | | | | + +---------+ + + | EXTERNAL LAB | | | | + +---------+ + + External Lab: Alkaline Phosphatase (12/06/2018) + +-------+ + + + | Component | Value | Ref Range | Performed | Pathologist | | | | | At | Signature | + +-------+ + + + | ALP, | 86 | 40 - 150 | EXTERNAL | | | External | | | LAB | | + +-------+ + + + + +---------+ + + | Performing | Address | City/State/Zipcode | Phone Number | | Organization | | | | + +---------+ + + | EXTERNAL LAB | | | | + +---------+ + + External Lab: Glucose (12/06/2018) + +---------+ + + + | Component | Value | Ref Range | Performed | Pathologist | | | | | At | Signature | + +---------+ + + + | Glucose, | 134 (A) | 84 - 110 | EXTERNAL | | | External | | | LAB | | + +---------+ + + + + +---------+ + + | Performing | Address | City/State/Zipcode | Phone Number | | Organization | | | | + +---------+ + + | EXTERNAL LAB | | | | + +---------+ + + External Lab: ALT (12/06/2018) + +-------+ + + + | Component | Value | Ref Range | Performed | Pathologist | | | | | At | Signature | + +-------+ + + + | ALT, | 53 | 0 - 55 | EXTERNAL | | | External | | | LAB | | + +-------+ + + + + +---------+ + + | Performing | Address | City/State/Zipcode | Phone Number | | Organization | | | | + +---------+ + + | EXTERNAL LAB | | | | + +---------+ + + External Lab: Albumin (12/06/2018) + +-------+ + + + | Component | Value | Ref Range | Performed | Pathologist | | | | | At | Signature | + +-------+ + + + | Albumin, | 4.3 | 3.4 - 4.8 | EXTERNAL | | | External | | | LAB | | + +-------+ + + + + +---------+ + + | Performing | Address | City/State/Zipcode | Phone Number | | Organization | | | | + +---------+ + + | EXTERNAL LAB | | | | + +---------+ + + External Lab: Protein, Total (12/06/2018) + +-------+ + + + | Component | Value | Ref Range | Performed | Pathologist | | | | | At | Signature | + +-------+ + + + | Protein, | 7.4 | 6 - 8 | EXTERNAL | | | Total, | | | LAB | | | External | | | | | + +-------+ + + + + +---------+ + + | Performing | Address | City/State/Zipcode | Phone Number | | Organization | | | | + +---------+ + + | EXTERNAL LAB | | | | + +---------+ + + External Lab: Calcium (12/06/2018) + +-------+ + + + | Component | Value | Ref Range | Performed | Pathologist | | | | | At | Signature | + +-------+ + + + | Calcium, | 9.5 | 8.4 - 10.8 | EXTERNAL | | | External | | | LAB | | + +-------+ + + + + +---------+ + + | Performing | Address | City/State/Zipcode | Phone Number | | Organization | | | | + +---------+ + + | EXTERNAL LAB | | | | + +---------+ + + External Lab: eGFR (12/06/2018) + +-------+ + + + | Component | Value | Ref Range | Performed | Pathologist | | | | | At | Signature | + +-------+ + + + | eGFR, | >60 | 60 - 140 | EXTERNAL | | | External | | | LAB | | + +-------+ + + + + + | Specimen | + + | Blood | + + + +---------+ + + | Performing | Address | City/State/Zipcode | Phone Number | | Organization | | | | + +---------+ + + | EXTERNAL LAB | | | | + +---------+ + + External Lab: Creatinine (12/06/2018) + +---------+ + + + | Component | Value | Ref Range | Performed | Pathologist | | | | | At | Signature | + +---------+ + + + | Creatinine, | 134 (A) | 84 - 110 | EXTERNAL | | | External | | | LAB | | + +---------+ + + + + + | Specimen | + + | Blood | + + + +---------+ + + | Performing | Address | City/State/Zipcode | Phone Number | | Organization | | | | + +---------+ + + | EXTERNAL LAB | | | | + +---------+ + + External Lab: WONG (12/06/2018) + +-------+ + + + | Component | Value | Ref Range | Performed | Pathologist | | | | | At | Signature | + +-------+ + + + | BUN, | 9 (A) | 9.8 - 20.1 | EXTERNAL | | | External | | | LAB | | + +-------+ + + + + +---------+ + + | Performing | Address | City/State/Zipcode | Phone Number | | Organization | | | | + +---------+ + + | EXTERNAL LAB | | | | + +---------+ + + External Lab: Lipase (12/06/2018) + +-------+ + + + | Component | Value | Ref Range | Performed | Pathologist | | | | | At | Signature | + +-------+ + + + | Lipase, | 4 (A) | 22 - 51 | EXTERNAL | | | External | | | LAB | | + +-------+ + + + + +---------+ + + | Performing | Address | City/State/Zipcode | Phone Number | | Organization | | | | + +---------+ + + | EXTERNAL LAB | | | | + +---------+ + + External Lab: Carbon Dioxide (12/06/2018) + +-------+ + + + | Component | Value | Ref Range | Performed | Pathologist | | | | | At | Signature | + +-------+ + + + | Carbon | 23 | 22 - 32 | EXTERNAL | | | Dioxide, | | | LAB | | | External | | | | | + +-------+ + + + + +---------+ + + | Performing | Address | City/State/Zipcode | Phone Number | | Organization | | | | + +---------+ + + | EXTERNAL LAB | | | | + +---------+ + + External Lab: Chloride (12/06/2018) + +-------+ + + + | Component | Value | Ref Range | Performed | Pathologist | | | | | At | Signature | + +-------+ + + + | Chloride, | 103 | 98 - 107 | EXTERNAL | | | External | | | LAB | | + +-------+ + + + + +---------+ + + | Performing | Address | City/State/Zipcode | Phone Number | | Organization | | | | + +---------+ + + | EXTERNAL LAB | | | | + +---------+ + + External Lab: Potassium (12/06/2018) + +-------+ + + + | Component | Value | Ref Range | Performed | Pathologist | | | | | At | Signature | + +-------+ + + + | Potassium, | 4.3 | 3.5 - 4.5 | EXTERNAL | | | External | | | LAB | | + +-------+ + + + + +---------+ + + | Performing | Address | City/State/Zipcode | Phone Number | | Organization | | | | + +---------+ + + | EXTERNAL LAB | | | | + +---------+ + + External Lab: Sodium (12/06/2018) + +-------+ + + + | Component | Value | Ref Range | Performed | Pathologist | | | | | At | Signature | + +-------+ + + + | Sodium, | 137 | 136 - 145 | EXTERNAL | | | External | | | LAB | | + +-------+ + + + + +---------+ + + | Performing | Address | City/State/Zipcode | Phone Number | | Organization | | | | + +---------+ + + | EXTERNAL LAB | | | | + +---------+ + + Microalbumin/Creatinine Ratio, Urine (12/06/2018) + + + + + + | Component | Value | Ref Range | Performed | Pathologist | | | | | At | Signature | + + + + + + | COLLECTION | Clean Catch | | | | | METHOD 1 | | | | | + + + + + + | Color | Yellow | | | | + + + + + + | Clarity, | Clear | | | | | Urine | | | | | + + + + + + | Bilirubin, | Negative | Negative | | | | Urine | | | | | + + + + + + | Urobilinoge | 1.0 mg/dL | < 0.2 mg/dL, | | | | n, Urine | | 1.0 mg/dL, 4.0 | | | | | | mg/dL, Normal, | | | | | | 1.0 E.U./dL, | | | | | | 0.2 E.U./dL, | | | | | | 0.2 mg/dL, | | | | | | Negative, 1 | | | | | | mg/dL, <2.0 | | | | | | mg/dL | | | + + + + + + | Nitrite, | Negative | Negative | | | | Urine | | | | | + + + + + + + + | Specimen | + + | Urine | + + External Lab: Urinalysis (12/06/2018) + + + + + + | Component | Value | Ref Range | Performed | Pathologist | | | | | At | Signature | + + + + + + | UA Blood, | Small | | EXTERNAL | | | External | | | LAB | | + + + + + + | UA Glucose, | Negative | | EXTERNAL | | | External | | | LAB | | + + + + + + | UA Ketones, | Negative | | EXTERNAL | | | External | | | LAB | | + + + + + + | UA Ph, | 6.5 | 5 - 8.5 | EXTERNAL | | | External | | | LAB | | + + + + + + | UA | Negative | | EXTERNAL | | | Proteins, | | | LAB | | | External | | | | | + + + + + + | UA Specific | 1.016 | 1.005 - 1.03 | EXTERNAL | | | [place], | | | LAB | | | External | | | | | + + + + + + | UA | Negative | | EXTERNAL | | | Leukocyte | | | LAB | | | Esterase, | | | | | | External | | | | | + + + + + + + +---------+ + + | Performing | Address | City/State/Zipcode | Phone Number | | Organization | | | | + +---------+ + + | EXTERNAL LAB | | | | + +---------+ + + Occult Blood, Fecal Immunochemical Test (FIT) (09/08/2018) + + + + + + | Component | Value | Ref Range | Performed | Pathologist | | | | | At | Signature | + + + + + + | Occult | Negative | Negative | | | | Blood, | | | | | | Gastric | | | | | | Fluid | | | | | + + + + + + + + | Specimen | + + | Stool - Stool | | specimen (specimen) | + + documented in this encounter Visit Diagnoses Not on filedocumented in this encounter"
--- OUTSIDE RECORDS SUMMARY | ~2020-03-07 | XMS | Encounter Summary ---
Demographics + + + | Address | [facility] [address] | | | [place] [address] | + + + | Home Phone | | + + + | Preferred Language | Unknown | + + + | Marital Status | Single | + + + | Temple Affiliation | 1041 | + + + | Race | Unknown | + + + | Ethnic Group | or | + + + Author + + + | Author | [facility] | | | and [place] | + + + | Organization | [facility] | | | and [...] Team Providers + +------+ + | Care Printing Plate Maker Name | Role | Phone | + +------+ + PCP | Unavailable | + +------+ + Encounter Details +--------+ + + + + | Date | Type | Department | Care Team | Description | +--------+ + + + + | 07/10/ | Hospital | [facility] GENERIC IP | Conversion | Pain | | 2018 | Encounter | CONVERSION [address] | Transaction, | | | | | [address] | Provider Unknown | | | | | [place], [place] | | | | | | [phone] | (Fax) | | | | | | | [...] +---------+ + + | gabapentin | Take 1 tablet by | 90 | 2 | 08/08/19 | | | (NEURONTIN) 800 MG | mouth 3 (three) | tablet | | 17 | 8 | | tablet | times daily. | | | | | + [...] MRI LUMBAR SPINE WO | Routin | 07/08/2017 | | Results for this | | CONTRAST | e | 10:57 PM | | procedure are in the | | | | PST | | results section. | + +--------+ + + + documented in this encounter Results MRI Lumbar Spine wo Contrast (07/08/2017 10:57 PM PST) + + | Specimen | + + | | + + + + + | Narrative | Performed At | + + + | This is a non-reportable procedure without a radiologist report and | | | is used for image storage only | | + + + + + | Procedure Note | + + | Adal Myers - 12/31/2018 10:14 AM PDT This is a non-reportable procedure | | without a radiologist report and isused for image storage only | + + documented in this encounter Visit Diagnoses + + | Diagnosis | + + | Pain Generalized pain | + + documented in this encounter"
--- OUTSIDE RECORDS SUMMARY | ~2020-03-07 | XMS | Encounter Summary ---
Demographics + + + | Address | [address] | | | [place] [address] | + + + | Home Phone | | + + + | Preferred Language | Unknown | + + + | Marital Status | Single | + + + | Mormon Affiliation | CAT | + + + | Race | White | + + + | Ethnic Group | or | + + + Author + + + | Author | [facility] | + + + | Organization | [facility] | + + + [...] Team Providers + +------+ + | Care Speech Correction Assistant Name | Role | Phone | + +------+ + | Luiz Abel MD | PCP | | + +------+ + Encounter Details +--------+ + + + + | Date | Type | Department | Care Team | Description | +--------+ + + + + | 08/07/ | Abstract | [facility] | Clinic, Surgery | | | 2016 | | [place] [facility] [address] | | | | | | [address] [facility] | | | | | | for Health and | | | | | | Healing, [address] | | | | | | [place], [place] | | | | | | [address] | | | | | | [phone] | | | +--------+ + + + [...]
--- OUTSIDE RECORDS SUMMARY | ~2020-03-07 | XMS | Encounter Summary ---
Demographics + + + | Address | [address] | | | [place] [address] | + + + | Home Phone [...] + + | Author | [facility] | + + + | Organization | [facility] | + + + [...] Team Providers + +------+ + | Care Sales Team Leader Name | Role | Phone | + +------+ + | Luiz Abel MD | PCP | | + +------+ + Reason for Visit + + + | Reason | Comments | + + + | Pelvic Pain | | + + + Office Visit [...] Urogyn | | | | Gynecology | follow up | Epic Dept | [address] | | | | | Procedures | | [place] | | | | | [place] | | [place] | | | | | OFFICE/OUTPT | | [place], | | | | | | | floor | | | | | VISIT,EST,LE | | [place], [place] | | | | | [place] | | [address] | | | | | | | Phone: | | | | | | | [phone] | | | | | | | Fax: | | | | | | | [phone] | +--------+--------+ + + + + Encounter Details +--------+---------+ + + + | Date | Type | Department | Care Team | Description | +--------+---------+ + + + | 09/18/ | Office | [facility] | Ani Ravi | Pelvic pain (Primary | | 2017 | Visit | [facility] | MD [place] [address] | Dx); Mixed stress | | | | [address] | and urge urinary | | | | [place] [address] | [place], [place] | incontinence; Morbid | | | | [place], [address] floor | [address] | obesity (HCC) | | | | [place], [place] | [phone] | | | | | [address] | | | | | | [phone] | | | +--------+---------+ + + + [...] in this encounter Patient Instructions Patient Instructions Paul Christy MD - 09/18/2017 8:00 AM PDTYour mesh is in the cor rect location. It is not eroding through the vagina or the bladder. There is a place where the mesh makes a tight band which is sore to touch. The muscles of your pelvis are also tender and these are separate from the mesh. The back pain you are having and the pain in the muscles in your pelvis may be connected. The pain y ou are feeling when your bladder is filling is likely from your muscles which are tightening to hold the urine rather than from the mesh. As a result there is no way to know if the muscle pain is related to the mesh or to a diffe rent issue (like your back pain). The pain in the muscles is best treated with physical the rapy. A surgery can be done to take out the mesh but we are not able to say that this will make y our pain better. We are concerned that doing a surgery to take out the mesh will not impro ve your pain. Every surgery caries risk (bleeding, infection, injury to structures around w here we are operating- bowel and bladder). If they mesh comes out your urine leaking will e ither stay the same or potentially get worse. You are two kinds of urinary incontinence both with activity and with bladder spasms. Opti ons for treatment include a clinic procedure and or a medication. Medication may help with the leaking associated with bladder spasm but not the leaking with activity. Some of your bladder dysfunction may also be related to your back trouble. Your weight is also contributing to your bladder trouble. We can try a medication for the incontinence and have included information about the office procedure. We will not likely be able to make your incontinence go away completely.Electro nically signed by Paul Christy MD at 09/18/2017 9:14 AM PDT documented in this encounter Progress Notes Ani Ravi MD - 09/18/2017 8:00 AM PDTI was present with Dr. Christy during the entire history, exam and procedures performed. I discussed the case with Dr. Christy and nathaly mejia with the findings and plan as documented in her note. I spent 50 minutes with the patient. Greater than 50% of the time was spent counseling the patient regarding surgical and non-surgical options to treat her pain and urinary incontine nce, reviewing risk and likely outcome of surgery, prescription management. This is a retur n patient to the urogyn practice but the first time that I have seen her for managing a plan through my clinic Paul Gambino MD - 09/18/2017 8:00 AM PDTHPI: Ms. Bravo is a reporting the following problems : Ms. Bravo is a 67yo with urinary incontinence, urinary frequency, dysuria and levator myalgia who presents for follow-up evaluation. Was last seen in clinic by Dr Stewart on as follow up after cancelling a surgery for mesh excision in October 2016. Her history is notable for Boulder sling (anterior mesh with sacrospinous and arcus tendin eus attachments) and Lynx sling for incontinence placed by Dr. Luiz Abel ([place], [place]) i n 2008 for anterior vaginal wall prolapse and stress urinary incontinence. She has had persi stent pelvic pain since this procedure. She does not think that she had pain prior to this Urodynamics performed in September 2016 showed detrusor overactivity with provocation (stress vishal t and filling phase), with stress urinary incontinence at 184mL with poor kegel effort. Sh e also had borderline ISD, with MUCP of 35. At her last visit with Dr Stewart (02/04/17) she was encouraged to pursue pelvic floor physic al therapy and obtain a second opinion due to reservations about expectations of the surgery with regard resolution of her pain and understanding of possible complications. She was se en for one PT appointment. She states that today everything is the same. She reports talking with a chiropractor who told her she is not working with a PT. Patient has not seen a second opinion. She is curre ntly taking gabapentin prescribed by her PCP. She has never been seen in a pain clinic. Her main concern is both pain and urine leaking. Reports she is unable to sleep well at [facility] because when she urinates it hurts. Also has pain when not peeing and leaking with walk ing or doing other things. She reports having no pain prior to this surgery. The pain star donny immediately following surgery. Since the time of her recovery she feels like her pain i s mostly the same, it is not worse but possibly a little worse. The pain is in her vagina/b ladder and feels squeezed. Denies bladder infections or blood in urine. Denies blood in urine. Is not sexually activ e. She is not on any medicine for her bladder spasms currently and has never been on a medi cation for this. She reports that she is looking to have a surgery for the mesh to help with pain with urina tion. Reports surgery was canceled due to change in time, wind, and being cold. On review of her chart she has spinal stenosis and a slipped disk. She describes this pain as very different. Sometimes she does get pain down her legs from her back. THe provider that she saw for this recommended not having surgery The past medical history, surgical history, family history, social history, and current med ications updated in EPIC. PHYSICAL EXAM BP 112/76 | Pulse 70 | Temp 36.7 C (98 F) | Ht 1.524 m (5') | Wt 101.3 kg (223 lb 4.8 o z) | SpO2 95% | BMI 43.61 kg/(m^2) GENERAL: No acute distress NECK: No thyromegaly RESPIRATORY: Breathing without difficulty CARDIOVASCULAR: Trace edema bilaterally ABDOMEN: morbidly Obese No rebound or guarding SKIN: Warm and dry NEUROLOGIC GAIT: Requires walker due to back pain ORIENTATION: Oriented to time, place, and person AFFECT: Normal GENERAL PELVIC EXAM EXTERNAL GENITALIA: Normal External Genitalia URETHRA: Normal BLADDER NECK MOBILITY: Visibly elevated VAGINA enlarged diameter anterior wall is fixed, mesh band palpated apically stretched across right to left consiste nt with bilateral SSL fixation with Boulder mesh, no evidence of mesh exposure/erosion, ten ravin to palpation along mesh band Large volume stress leaking present with valsalva and cough is supine position CERVIX Normal appearance UTERUS unable to palpate due to habitus ADNEXA Not palpable, normal, no mass present PELVIC FLOOR MUSCLE TESTS The levator muscles were also assessed. By palpating the levator ani muscles transvaginall y while contracted, the following was noted: TEST: PELVIC FLOOR COORDINATION: Poorly Coordinated Symmetric TEST: RIGHT PELVIC FLOOR MUSCLE TENDERNESS?: Severe TEST: LEFT PELVIC FLOOR MUSCLE TENDERNESS?: Severe FURTHER PELVIC FLOOR FINDINGS: both mesh band and pelvic floor muscle tender to palpation, stress leaking present on exam BLADDER FUNCTION EVALUATION TESTS STANDING COUGH STRESS TEST: Positive ASSESSMENT SYMPTOMS DISCUSSED Stress incontinence Urge incontinence Mixed incontinence Pelvic Pain Abdominal Pain Back pain DATA/ LAB TESTS REVIEWED/ORDERED Previous Records Reviewed & Summated Uroflow CMG Urethral Pressure Profile Voiding Study RECOMMENDATIONS TREATMENT OPTIONS CONSIDERED: PT for Pain Reduction PT for Muscle Relaxation Surgery discussed Prescription Management EDUCATIONAL MATERIALS PROVIDED Overactive Bladder Overview Stress Incontinence Overview Ms. Bravo is a 67 yo with mixed urinary incontinence, levator myalgia, pelvic pain an d spinal stenosis who has previously undergone an anterior vaginal mesh placement and incont inence mesh sling in 2008. She is concerned about both her continued pain and her incontine nce. She is interested in a surgical removal of the mesh. Pain: Reviewed multiple etiologies of pain (back, muscles, and mesh). Discussed indications for physical therapy as well as mesh excision (in absence of erosion) . Advised that mesh could be removed which implies risk (bleeding, infection, injury to crystal rounding structures, worsening incontinence, new onset urinary symptoms) for possibly no francis efit (continued or worsening pain). Reviewed general surgical risks in setting of present h ealth state. Her body habitus presents significant surgical challenge. Mixed incontinence: overt COLTON on exam today and DO demonstrated on most recent UDS. Discus sed limited options for treatment of COLTON in setting of fixed urethra. Plan to trial oxybuty anuel for treatment of UUI and information given for urethral bulking for treatment of COLTON. A gain revisited incontinence may worsen if mesh removed surgically. Rx for oxybutynin sent. Patient information handouts given. Plan to trial medications and call with results (patient travels from [place] to be seen). Advised her to continue to think about whether or not there is any value in mesh removal surgery in context of today s discussion. Advised that weight loss would benefit many of her complaints. Patient seen and evaluated with Dr Ravi. PAUL CHRISTY MD documented in t his encounter Plan of Treatment Not on filedocumented as of this encounter Visit Diagnoses + + | Diagnosis | + + | Pelvic pain - Primary Unspecified symptom associated with female genital organs | + + | Mixed stress and urge urinary incontinence Mixed incontinence urge and stress | | (male)(female) | + + | Morbid obesity (HCC) Morbid obesity | + + documented in this encounter"
--- OUTSIDE RECORDS SUMMARY | ~2020-03-07 | XMS | Clinical Summary ---
Demographics + + + | Address | [address] | | | [place] [address] | + + + | Home Phone | | + + + | Preferred Language | Unknown | + + + | Marital Status | Single | + + + | Episcopalian Affiliation | [id number] | + + + [...] Team Providers + +------+ + | Care Stonecutter Apprentice Hand Name | Role | Phone | + +------+ + | Jeannette Meza | PCP | | + +------+ + Allergies No Known Allergies Medications + + + +---------+------+------+-------+ | Medication | Sig | Dispensed | Refills | Star | End | Statu | | | | | | t | Date | s | | | | | | Date | | | + + + +---------+------+------+-------+ | acetaminophen | Take 500 mg by mouth | | 0 | | | Activ | | (TYLENOL) 500 mg | every 6 hours as | | | | | e | | tablet | needed for Pain. | | | | | | + + + +---------+------+------+-------+ | albuterol 90 | Inhale 2 puffs into | | 0 | | | Activ | | mcg/puff inhaler | the lungs every 6 | | | | | e | | | hours as needed for | | | | | | | | Wheezing. | | | | | | + + + +---------+------+------+-------+ | amitriptyline | Take 25 mg by mouth | | 0 | | | Activ | | (ELAVIL) 25 mg | nightly. | | | | | e | | tablet | | | | | | | + + + +---------+------+------+-------+ | azithromycin | Take 250 mg by mouth | | 0 | | | Activ | | (ZITHROMAX) 250 mg | Daily. | | | | | e | | tablet | | | | | | | + + + +---------+------+------+-------+ | buPROPion | Take 100 mg by mouth | | 0 | | | Activ | | (WELLBUTRIN SR) 100 | 2 times daily. | | | | | e | | mg 12 hr tablet | | | | | | | + + + +---------+------+------+-------+ | fluticasone | 1 spray by Nasal | | 0 | | | Activ | | (FLONASE) 50 | route Daily. | | | | | e | | mcg/nasal spray | | | | | | | + + + +---------+------+------+-------+ | gabapentin | Take 800 mg by mouth | | 0 | | | Activ | | (NEURONTIN) 800 MG | 3 times daily. | | | | | e | | tablet | | | | | | | + + + +---------+------+------+-------+ | melatonin 5 mg | Take by mouth | | 0 | | | Activ | | tablet | nightly as needed | | | | | e | | | for Insomnia. | | | | | | + + + +---------+------+------+-------+ | menthol, topical | Apply topically. | | 0 | | | Activ | | analgesic, | | | | | | e | | (BIOFREEZE) 4 % | | | | | | | + + + +---------+------+------+-------+ | montelukast | Take 10 mg by mouth | | 0 | | | Activ | | (SINGULAIR) 10 mg | nightly. | | | | | e | | tablet | | | | | | | + + + +---------+------+------+-------+ | omeprazole | Take 20 mg by mouth | | 0 | | | Activ | | (PRILOSEC) 20 mg | every morning | | | | | e | | capsule | (before breakfast). | | | | | | + + + +---------+------+------+-------+ | oxybutynin | Take 5 mg by mouth 3 | | 0 | | | Activ | | (DITROPAN) 5 mg | times daily. | | | | | e | | tablet | | | | | | | + + + +---------+------+------+-------+ | oxybutynin | Take 15 mg by mouth | | 0 | | | Activ | | (DITROPAN XL) 15 MG | Daily. | | | | | e | | 24 hr tablet | | | | | | | + + + +---------+------+------+-------+ | sodium chloride | 2 sprays by Each | | 0 | | | Activ | | (OCEAN) 0.65% nasal | Nare route every | | | | | e | | spray | hour as needed for | | | | | | | | Nasal Dryness. | | | | | | + + + +---------+------+------+-------+ | triamcinolone | Apply topically 2 | | 0 | | | Activ | | (KENALOG) 0.5% | times daily. | | | | | e | | ointment | | | | | | | + + + +---------+------+------+-------+ | diclofenac | Apply 2 g topically | 100 g | 2 | 03/2 | | Activ | | (VOLTAREN) 1% GEL | 4 (four) times | | | 1/20 | | e | | | daily. | | | 17 | | | + + + +---------+------+------+-------+ | lisinopril | | | 0 | 04/3 | | Activ | | (PRINIVIL, ZESTRIL) | | | | 0/20 | | e | | 5 mg tablet | | | | 18 | | | + + + +---------+------+------+-------+ | ondansetron | Take 4 mg by mouth | | 0 | 07/2 | | Activ | | (ZOFRAN ODT) 4 mg | every 6 hours as | | | 2/20 | | e | | disintegrating | needed. | | | 19 | | | | tablet | | | | | | | + + + +---------+------+------+-------+ | polyethylene | Take 17 g by mouth | | 0 | 07/1 | | Activ | | glycol (MIRALAX) | Daily as needed. | | | 620 | | e | | powder | | | | 19 | | | + + + +---------+------+------+-------+ | traZODone | Take 100 mg by mouth | | 0 | 09/0 | | Activ | | (DESYREL) 100 mg | nightly. | | | 11/06 | | e | | tablet | | | | 16 | | | + + + +---------+------+------+-------+ Active Problems + + + | Problem | Noted Date | + + + | Abdominal pain, unspecified abdominal location | 01/07/2019 | + + + + + | Overview: Added automatically from request for surgery | | [id number] | + + + + + | Positive FIT (fecal immunochemical test) | 01/07/2019 | + + + + + | Overview: Added automatically from request for surgery | | [id number] | + + + + + | LISHA on CPAP | 01/07/2019 | + + + + + | Overview: Uses CPAP | + + + + + | Acute gastritis without hemorrhage | 12/22/2018 | + + + + + | Overview: Last Assessment & Plan: - Discussed lifestyle | | changes including eating small, frequent meals, raising head of | | bed when sleeping, avoidance of late-night eating, avoiding foods | | that increase symptoms such as fatty foods, caffeinated drinks, | | spicy foods, pepper, chocolate, and any other foods that may | | cause discomfort- Information for GI doctor provided so she cane | | make apt. Discussed importance of this apt. Explained that she | | may need an EGD to evaluate for ulcer. | + + + + + | Prediabetes | 09/02/2018 | + + + | Complicated open wound of thigh | 05/13/2018 | + + + + + | Overview: Last Assessment & Plan: Assessment: Open right | | thigh wound healing by secondary intention currently 8 x 3 x 3 cm | | with slight malodor but no evidence of ongoing infection. | | Specifically no induration, no erythema, no undrained | | fluctuance.Plan: Proceed with wound care clinic if she is doing. | | I have discussed with the patient and reiterated that I do not | | want hydrogen peroxide placed into the wound. She understands | | and will not do that anymore. Additionally she will continue to | | follow-up with wound care clinic. There may be a role for a | | negative pressure wound VAC the timing and placement for which I | | defer currently to the wound clinic referral which soon would be | | appropriate. | + + + + + | Cervical spinal stenosis | 07/27/2017 | + + + + + | Overview: Anterolisthesis C4, C5, C6, degenerative changes of | | the facet joints per CT dated 07/25/2017.Last Assessment & Plan: | | Explained to pt that I would not be providing narcotic pain | | relievers at this time. Recommended using Tylenol for pain | | control and I did encourage pt to schedule appt with her Pain | | Management provider. Also recommended that pt schedule appt with | | the neurosurgeon for evaluation and treatment options. Both of | | these referrals have already been authorized by her insurance | | company. Encouraged pt to schedule an appt with the [facility] to | | figure out how to access transportation services through her | | insurance. | + + + + + | Chronic maxillary sinusitis | 11/19/2016 | + + + | Osteoarthritis of spine with radiculopathy, lumbar region | 08/07/2016 | + + + | Spondylosis | 08/07/2016 | + + + | Chronic left-sided low back pain with sciatica | 08/07/2016 | + + + | Numbness and tingling of left leg | 08/07/2016 | + + + | Lumbar disc herniation with radiculopathy | 08/07/2016 | + + + | Foraminal stenosis of lumbar region | 08/07/2016 | + + + | Spinal stenosis of lumbar region at multiple levels | 08/07/2016 | + + + | Osteoarthritis of lumbar spine | 08/07/2016 | + + + | Pelvic pain | 03/30/2016 | + + + | Headache | 02/10/2012 | + + + + + | Overview: Chronic. ?migraine .On BB prophyllaxis. | | | | IMO Problem List 2016_Regulatory_1 | + + + + + | GERD (gastroesophageal reflux disease) | 11/30/2010 | + + + | Allergic rhinitis | 06/29/2010 | + + + + + | Overview: allergic sinusitis? Itchy ears. Poor historian. | | rec trial for ear irrigation of Dr colorado and nasal steriods and | | antihistamine. If fails, rec referral to [facility] for eval.Last | | Assessment & Plan: - Discussed good home care: washing bed sheets | | regularly, vacuuming, washing face and hair before bed or when | | returning from being outside, can try air purifier - Discussed | | using allergy medication when needed daily | + + + + + | Anxiety and depression | 06/15/2005 | + + + + + | Overview: on welbutrin; patient self discontinued; 06/2009 | | psychotic thought processes seen [facility] | | welbutrin; patient self discontinued; 06/2009 psychotic thought | | processes seen by [facility] | + + + +---+ | Obesity, Class III, BMI 40-49.9 (morbid obesity) | | + +---+ | Hypertension | | + +---+ | Palestinian as primary spoken language | | + +---+ Immunizations + + + + | Name | Administration Dates | Next Due | + + + + | INFLUENZA, | 02/12/2018, 03/20/2017, 03/12/2016, | | | UNSPECIFIED | 06/03/2015, 03/10/2014, 02/29/2012, | | | FORMULATION | 02/20/2011, 03/01/2010, 06/03/2008, | | | | 06/25/2007, 03/13/2006, 05/05/2002 | | + + + + | PNEUMOCOCCAL | 06/03/2015 | | | CONJUGATE 13-VALENT | | | | (PCV13) | | | + + + + | PNEUMOCOCCAL | 07/16/2016 | | | POLYSACCHARIDE | | | | 23-VALENT (PPSV23) | | | + + + + | TD PF (2 LF TETANUS) | 05/10/2018 | | | (ADOL/ADULT) | | | + + + + | TDAP, (ADOL/ADULT) | 05/11/2018, 03/20/2017, 08/28/2012 | | + + + + Social History + [...] | + + + + + | Hepatitis C | | | | | Screening | 9 | | | + + + + + | Medication | | | | | Management | 9 | | | + + + + + | Hemoglobin A1c | | | | | Screening | 7 | | | + + + + + | Vaccine: Zoster (1 | | | | | of 2) | 9 | | | + + + + + | Breast Cancer | | | | | Screening | 4 | | | + + + + + | Adult Annual | | | | | Wellness Visit | 9 | | | + + + + + | Med Mgmt: BUN | | 12/07/19 | | | | 0 | 19, | | | | | 12/07/19 | | | | | 19 | | + + + + + | Med Mgmt: Cr | | 07/20/20 | | | | 0 | 19, | | | | | 12/07/19 | | | | | 19 | | + + + + + | Med Mgmt: K | | 12/07/19 | | | | 0 | 19, | | | | | 12/07/19 | | | | | 19 | | + + + + + | Med Mgmt: eGFR | | 12/07/19 | | | | 0 | 19, | | | | | 12/07/19 | | | | | 19 | | + + + + + | Vaccine: Influenza | | 02/13/20 | | | (#1) | 0 | 18, | | | | | 02/13/20 | | | | | 18, | | | | | 03/20/20 | | | | | 17, | | | | | Addition | | | | | al | | | | | history | | | | | exists | | + + + + + | Colorectal Cancer | | 01/21/20 | | | Screening | 4 | 19, | | | (Colonoscopy) | | 01/21/20 | | | | | 19 | | + + + + + | Vaccine: | | 05/11/20 | | | Dtap/Tdap/Td (5 - | 8 | 18, | | | Td) | | 05/10/20 | | | | | 18, | | | | | 05/10/20 | | | | | 18, | | | | | Addition | | | | | al | | | | | history | | | | | exists | | + + + + + | Vaccine: | Completed | 07/16/19 | | | Pneumococcal 65+ | | 17, | | | | | 06/03/19 | | | | | 16 | | + + + + + Results Not on filefrom Last 3 Months Insurance + +--------+ +--------+ +---------+--------+ | Payer | Benefi | Subscriber | Effect | Phone | Address | Type | | | t Plan | ID | pro | | | | | | / | | Dates | | | | | | Group | | | | | | + +--------+ +--------+ +---------+--------+ | MEDICARE | MEDICA | [id number] | 09/18/19 | [phone] | | Medica | | | RE | | 04-Pre | 5 | | re | | | PART A | | sent | | | | | | AND B | | | | | | + +--------+ +--------+ +---------+--------+ | [place]ID [place] | MEDICA | [id number] | | [phone] | | Medica | | | ID | | 019-[id number] | 2 | | id | | | [place] | | esent | | | | + +--------+ +--------+ +---------+--------+ + +--------+ +--------+ + + | Guarantor Name | Accoun | Relation to | Date | Phone | Billing Address | | | t Type | Patient | of | | | | | | | | | | + +--------+ +--------+ + + | Coleen Bravo | Person | Self [birth year] | [address] | | | al/Fam | | 1950 | [phone] | [place] | | | [place] | | | [address] ([place]) | [phone] | + +--------+ +--------+ + + Advance Directives + + + + + | Type | Date Recorded | Patient | Explanation | | | | Stone Spreader Operator | | + + + + + | Power of | | | | | Oyster Planter | | | | + + + + + | Advance | 01/20/2019 8:23 | | | | Directive | AM | | | + + + + +"
--- OUTSIDE RECORDS SUMMARY | ~2020-03-07 | XMS | Encounter Summary ---
Demographics + + + | Address | [facility] [address] | | | [place] [address] | + + + | Home Phone | | + + + | Preferred Language | Unknown | + + + | Marital Status | Single | + + + | Congregation Affiliation | 1041 | + + + | Race | Unknown | + + + | Ethnic Group | or | + + + Author + + + | Author | [facility] | | | and [place] | + + + | Organization | [facility] | | | and [...] Team Providers + +------+ + | Care Vehicle Body Maker Name | Role | Phone | + +------+ + PCP | Unavailable | + +------+ + Encounter Details +--------+ + + + + | Date | Type | Department | Care Team | Description | +--------+ + + + + | 08/15/ | Hospital | [facility] | Conversion | Degeneration of | | 2017 | Encounter | [facility] | Transaction, | lumbar | | | | [address] | Provider Unknown | intervertebral disc | | | | [address] [place], [place] | [phone] | | | | | [address] | | | | | | [phone] | | | +--------+ + + + [...] + + + | XR LUMBAR SPINE 2 OR | Routin | 08/15/2017 | | Results for this | | 3 VW | e | 12:52 PM | | procedure are in the | | | | PDT | | results section. | + +--------+ + + + documented in this encounter Results XR Lumbar Spine 2 or 3 Vw (08/15/2017 12:52 PM PDT) + + | Specimen | + + | | + + + + + | Impressions | Performed At | + + + | 1. Grade 1 anterolisthesis at the L4-L5 level without interval | | | change between flexion and extension maneuver. 2. Multilevel | | | degenerative changes of the lumbar spine Electronically | | | signed by Jose Bear MD on 08/15/2017 2:17 PM | | + + + + + + | Narrative | Performed At | + + + | [facility] XR LUMBAR SPINE LIMITED 2-3 VIEW 08/15/2017 12:52 PM | | | HISTORY: 67 years. Female. Lumbar spine pain TECHNIQUE: | | | XR LUMBAR SPINE LIMITED 2-3 VIEW. Lateral view in flexion and | | | extension. Total of 2 images presented for interpretation. | | | COMPARISON: Conventional radiographs of the lumbar spine 06/21/2016 | | | FINDINGS: disc height loss at the L3-L4, L4-L5 and L5/S1 are again | | | noted. Grade 1 anterolisthesis at the L4/L5 level = 7 mm is unchanged | | | between flexion and extension maneuvers. Remainder of the lumbar | | | vertebrae have preservation of height and alignment. Foraminal | | | narrowing at the L4-L5 and L5/S1 levels. | | + + + + + | Procedure Note | + + | Adal Myers Conversion - 12/31/2018 10:14 AM PDT [facility] E[facility] LUMBAR SPINE LIMITED | | 2-3 VIEW08/15/2017 12:52 PM HISTORY:67 years. Female. Lumbar spine pain TECHNIQUE:XR | | LUMBAR SPINE LIMITED 2-3 VIEW. Lateral view in flexion and extension. Total of 2 | | images presented for interpretation. COMPARISON:Conventional radiographs of the lumbar | | spine 06/21/2016FINDINGS:disc height loss at the L3-L4, L4-L5 and L5/S1 are again noted. | | Grade 1 anterolisthesis at the L4/L5 level = 7 mm is unchanged between flexion and | | extension maneuvers. Remainder of the lumbar vertebrae have preservation of height and | | alignment. Foraminal narrowing at the L4-L5 and L5/S1 levels. IMPRESSION: 1. Grade 1 | | anterolisthesis at the L4-L5 level without interval change between flexion and extension | | maneuver.2. Multilevel degenerative changes of the lumbar spine Electronically | | signed by Jose Bear MD on 08/15/2017 2:17 PM | |Conventional radiographs of the lumbar spine 06/21/2016 | |FINDINGS: | |disc height loss at the L3-L4, L4-L5 and L5/S1 are again noted. Grade 1 anterolisthesis at the L4/L5 level = 7 mm is unchanged between flexion and extension maneuvers. Remainder of th e lumbar vertebrae have preservation | |of height and alignment. Foraminal | | narrowing at the L4-L5 and L5/S1 levels. | | | |IMPRESSION: | |1. Grade 1 anterolisthesis at the L4-L5 level without interval change between flexion and extension maneuver. | |2. Multilevel degenerative changes of the lumbar spine | | | | | | | | | + + documented in this encounter Visit Diagnoses + + | Diagnosis | + + | Degeneration of lumbar intervertebral disc Degeneration of lumbar or lumbosacral | | intervertebral disc | + + documented in this encounter"
--- OUTSIDE RECORDS SUMMARY | ~2020-03-07 | XMS | Encounter Summary ---
Demographics + + + | Address | [address] | | | [place] [address] | + + + | Home Phone | | + + + | Preferred Language | Unknown | + + + | Marital Status | Single | + + + | Confucianism Affiliation | CAT | + + + | Race | White | + + + | Ethnic Group | or | + + + Author + + + | Author | [facility] | + + + | Organization | [facility] | + + [...] Team Providers + +------+ + | Care Crop Farm Helper Name | Role | Phone | + +------+ + | Luiz Abel MD | PCP | | + +------+ + Encounter Details +--------+ + + + + | Date | Type | Department | Care Team | Description | +--------+ + + + + | 10/29/ | Telephone | [facility] | Shari Cosme, | | | 2016 | | [facility] | [place], [place] | | | | | [address] | [address] | | | | | [address] | | | | | | John, [address] [place] [address] | | | | | | [place], [place] | | | | | | [address] | | | | | | [phone] | | | +--------+ + + + [...] this encounter Miscellaneous Notes Telephone Encounter - Shari Cosme LCSW - 11/02/2016 2:05 PM PDTI talked with Majo on October 30, and gave him the names of low cost hotels to pass on to patient and her so n (who is bringing her). No more SW needs at this time. Closing encounter. Shari HARVEYlectronically signed by Shari Cosme LCSW at 11/02/2016 2:07 PM PDT Telephone Encounter - Sharmila Newman - 10/30/2016 9:19 AM PDTPatient called to discuss lo dging arrangement. Warm xfer to Shari Cosme. Electronically signed by Sharmila Newman at 0 10/30/2016 9:20 AM PDTTelephone Encounter - Shari Cosme LCSW - 10/30/2016 9:15 AM PDT Coleen called me using a [place] interpretor through [facility]. She called about obtaining a hote l to stay at after her pre-op appointments on October 31. She will have a procedure done on Oct at [facility]. I told Coleen that "Majo" called me last week and I returned his call yesterday . Since he speaks [place] it might make more sense for him to set up the hotel for this ja ent since he is aware of their financial situation and what might be a good match for her. I will call Majo again and ask for his assistance with this. I told patient that I would have Majo call her with the details. If I don't hear back from Majo by noon today I will call patient with the [place] line phone number for reservations at [facility]. Shari HARVEYlectronically signed by Shari Cosme LCSW at 10/30/2016 9:32 AM PDT Telephone Encounter - Shari Cosme LCSW - 10/29/2016 6:37 PM PDTHi Shari, This patient is scheduled for surgery next week. Her community health worker, August, is helping patient make arrangements for transportation and lodging. August is wondering if you can help with the lodging recommendations. He can be reached at [phone]. Thank you, Margarita I received the above message from staff about this patient, although not until 5 days after the call was made since I was away from [facility]. I called "Majo" back this evening and left a Krystal Gayle with ideas about low cost hotels in the area and also directed him to the [facility] web site th at lists hotels that offer discounts to [facility] patients. I left Majo my direct phone number and encouraged him to call me back with follow up questions. Shari Cosme LCSW documented in this encounter Plan of Treatment Not on filedocumented as of this encounter Visit Diagnoses Not on filedocumented in this encounter
--- OUTSIDE RECORDS SUMMARY | ~2020-03-07 | XMS | Encounter Summary ---
Demographics + + + | Address | [address] | | | [place] [address] | + + + | Home Phone | | + + + | Preferred Language | Unknown | + + + | Marital Status | Single | + + + | Pentecostal Affiliation | CAT | + + + | Race | White | + + + | Ethnic Group | or | + + + Author + + + | Author | [facility] | + + + | Organization | [facility] | + + [...] Team Providers + +------+ + | Care Director Of In Service Education Name | Role | Phone | + [...] + + | 02/17/ | Refill | [facility] | Ani Ravi | Refill Request | | 2019 | | [facility] [place] | [place] [address] | | | | | [address] | [facility] | | | | | [address] | [place], [place] | | | | | John, [facility] floor | [address] | | | | | [place], [place] | [phone] | | | | | [address] | | | | | | [phone] | | | +--------+--------+ + + + [...] Encounter - Heydi Douglass MA - 02/18/2019 8:42 AM PDT Refill request received from [facility] pharmacy for: Requested Prescriptions Pending Prescriptions Disp Refills OXYBUTYNIN CR 15 mg oral tablet extended release 24hr [Pharmacy Med Name: Oxybutynin Ch loride Er 24hr 15 Mg Tab Krem] 30 tablet 2 Sig: TAKE ONE TABLET BY MOUTH ONE TIME DAILY Last refill: 10/07/2018 Last visit: 09/18/2017 Next visit: No future visit scheduled Last mammogram: Pharmacy verified and order pended. Routing to Dr. Ravi and Dr. Man and Dr. Vicente manning or review/authorization. documented in this en counter Plan of Treatment Not on filedocumented as of this encounter Visit Diagnoses Not on filedocumented in this encounter"
--- OUTSIDE RECORDS SUMMARY | ~2020-03-07 | XMS | Encounter Summary ---
Demographics + + + | Address | [address] | | | [place] [address] | + + + | Home Phone | | + + + | Preferred Language | Unknown | + + + | Marital Status | Single | + + + | Amish Affiliation | CAT | + + + | Race | White | + + + | Ethnic Group | or | + + + Author + + + | Author | [facility] | + + + | Organization | [facility] | + [...] Team Providers + +------+ + | Care Roof Cement And Paint Maker Helper Name | Role | Phone | + +------+ + | Luiz Abel MD | PCP | | + +------+ + Reason for Visit + + + | Reason | Comments | + + + | New patient | | | consultation | | + + + Intake Referral (Routine) +--------+--------+ + + + + | Status | Reason | Specialty | Diagnoses / | Referred By | Referred To | | | | | Procedures | Contact | Contact | +--------+--------+ + + + + | Closed | | Obstetrics & | Diagnoses | Page, | [facility] | | | | Gynecology | Abdominal | MD Luiz | Generalists | | | | | pain | [address] | [address] | | | | | | [address] | [address] | | | | | | [place], | [place] | | | | | | [place] [address] | [place], [address] | | | | | | Phone: | floor | | | | | | [phone] | [place], [place] | | | | | | Fax: | [address] | | | | | | [phone] | Phone: | | | | | | | [phone] | | | | | | | Fax: | | | | | | | [phone] | +--------+--------+ + + + + Encounter Details +--------+---------+ + + + | Date | Type | Department | Care Team | Description | +--------+---------+ + + + | 03/28/ | Office | [facility] | Angie Stewart MD | Pelvic pain (Primary | | 2015 | Visit | [facility] | [address] | Dx); Complication | | | | [address] | [address] | of implanted vaginal | | | | [address] | [place], [place] | mesh | | | | Pavilion, 7th floor | [address] | | | | | [place], [place] | [phone] | | | | | [address] | | | | | | [phone] | | | +--------+---------+ + + + [...] + + + | Blood Pressure | 104/70 | 03/28/2016 2:22 PM | | | | | PST | | + + + + + | Pulse | 81 | 03/28/2016 2:22 PM | | | | | PST | | + + + + + | Temperature | 36.2 C (97.1 F) | 03/28/2016 2:22 PM | | | | | PST | | + + + + + | Respiratory Rate | - | - | | + + + + + | Oxygen Saturation | 98% | 03/28/2016 2:22 PM | | | | | PST | | + + + + + | Inhaled Oxygen | - | - | | | Concentration | | | | + + + + + | Weight | 103.9 kg (229 lb) | 03/28/2016 2:22 PM | | | | | PST | | + + + + + | Height | 152.4 cm (5') | 03/28/2016 2:22 PM | | | | | PST | | + + + + + | Body Mass Index | 44.72 | 03/28/2016 2:22 PM | | | | | PST | | + + + + + documented in this encounter Progress Notes Angie Stewart MD - 03/30/2016 2:15 PM PSTHPI: Ms. Bravo is a reporting the [facility] problems: Bladder pain Urinary incontinence Ms. Gita Bravo is a French speaking 66 y.o. here today for bladder/urinary pain and urinary incontinence. Ms. Bravo had surgery in 2005 on her bladder because she was babar george of the time, however, after the surgery, her leaking increased 3x . She is unsure what exact surgery was performed. Since the surgery not only has her incontinence increased, but she is having significant pelvic pain. When she leans forward, strains, or urinates she feels significant pain. She also notices that there is blood in her urine after straining. Ms. Bravo is less concerned about the urinary frequency and incontinence she is having. Sh e constantly wears a large adult diaper + pad that needs to be changed multiple times per da y. She has to wear these at night and will wet a diaper 5x/night. She describes significant leakage within 20 minutes of drinking any water. She denies any increased incontinence with coughing or sneezing. She has 1-2 bowel movements/day and denies constipation due to the powder that her PCP give s her for softer stools. She thinks that her pain is being caused by the mesh that was placed during her last surger y and she wants the mesh removed. She says that she is having a difficult time socially al use she is having so much pain. She is also concerned that the mesh is going to cause cancer and she is considering getting her uterus and ovaries removed. PAIN ROS Positive for Pelvic pain all the time Pain with urination Pain after urination Pain with defecation OVERACTIVE BLADDER ROS Positive for: Urgency to urinate Frequency of urination Nocturia Soaks diaper Soaks maxipad Wear Pads for Incontinence Feeling a bulge Miralax A 10-point review of systems was reviewed on the patient intake questionnaire (scanned into [employer]) and with the patient. The summary is reported below, and is negative unless otherwis e noted. REVIEW OF SYSTEMS GENERAL: Negative ENT: Negative EYES: Negative GI: Negative CV: Negative ENDOCRINE: Excessive Thirst In addition, the past medical history, surgical history, family history, social history, an d current medications were reviewed on the patient intake questionnaire provided at today s visit to be found in the scanned documents in [employer]. They have also been entered into rele vant smiley of the [employer] database. PHYSICAL EXAM HEIGHT: 5ft 0ins. WEIGHT 229pounds BLOOD PRESSURE 104/70 BMI 44.4kg/m2 GENERAL: Obese, poor historian, disorganized thought NEUROLOGIC GAIT: Slow, unsteady GENERAL PELVIC EXAM EXTERNAL GENITALIA: Normal External Genitalia URETHRA: Supine leak with cough Supine leak with valsalva BLADDER: Tender to palpation VAGINA mesh palpable beneath mucosa but not tender normal discharge ANTERIOR VAGINAL RUGAE Normal POSTERIOR VAGINAL RUGAE Normal CERVIX Normal appearance ADNEXA Adnexa difficult to assess due to obesity PELVIC FLOOR MUSCLE TESTS The levator muscles were also assessed. By palpating the levator ani muscles transvaginall y while contracted, the following was noted: TEST: RIGHT PELVIC FLOOR MUSCLE TENDERNESS?: Moderate TEST: LEFT PELVIC FLOOR MUSCLE TENDERNESS?: Moderate ASSESSMENT Ms. Gita Bravo is a 66 y.o. here today for pelvic pain, levator myalgia, and uri nary incontinence. Leakage without Provocation Continuous Wetness Frequency Dysuria Bladder (suprapubic) Pain Levator Myalgia RECOMMENDATIONS She is most concerned about having the mesh removed because of the pain, however, we discus sed with her that it is likely that her pain will not fully go away with mesh removal due to nerve sensitization and her levator myalgia. She continued to push for mesh removal and we discussed that she would need to meet with her PCP to be cleared for any type of surgery josefina t may occur in the future. Additionally, we will need to track down the operative note from her surgery to determine exactly what surgery she had on her bladder. She is already taking gabapentin and this does not seem to be helping her pain. She will call once she has discussed her surgery eligibility with her PCP and we will set u p a pre-op appointment and UDS at the same time. She is less concerned about her urinary incontinence even though it was not resolved by her previous surgery. Her urge incontinence will be addressed at her next appointment after UDS results. Urodynamics Initial [facility] umented in this encounter Plan of Treatment Not on filedocumented as of this encounter Visit Diagnoses + + | Diagnosis | + + | Pelvic pain - Primary Unspecified symptom associated with female genital organs | + + | Complication of implanted vaginal mesh | + + documented in this encounter"
--- OUTSIDE RECORDS SUMMARY | 2020-03-07 11:12 | XMS ---
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 E.D. VISIT COUNT (12 MO.) [address] TOTAL 9 NOTE: Visits indicate total known visits. ED/UCC VISIT TRACKING (12 MO.) 03/07/2020 11:09 [facility] [place] TYPE: Emergency COMPLAINT: - SOB [facility]2020 17:[facility] [place] [facility] DIAGNOSES: - Left upper quadrant pain - Pneumonia, unspecified organism - COVID CHEST PAIN 01/26/2020 17:40 [facility] [place] TYPE: Emergency DIAGNOSES: - Acute bronchitis, unspecified - +screening lung pain chills - lung pain chills 12/26/2019 19:41 [facility] [place] TYPE: Emergency DIAGNOSES: - Contact with and (suspected) exposure to other viral communic - COVID SCREENING; COUGH FEVER ABD PAIN - Viral infection, unspecified 10/28/2019 12:20 [facility] [place] [facility] Emergency DIAGNOSES: - Constipation, unspecified - Unspecified chronic gastritis without bleeding - ABDOMINAL PAIN, COUGH - ABDOMINAL PAIN 08/13/2019 07:31 [employer] [place] TYPE: Emergency DIAGNOSES: - Gastro-esophageal reflux disease without esophagitis - SHORT OF BREATH 07/07/2019 18:37 [facility] [place] TYPE: Emergency DIAGNOSES: - CHEST PAIN AND ABD PAIN - Gastro-esophageal reflux disease without esophagitis 07/02/2019 14:52 [facility] [employer] [place] TYPE: Emergency DIAGNOSES: - TROUBLE BREATHING - Unspecified asthma, uncomplicated - Bronchitis, not specified as acute or chronic 04/02/2019 09:35 [facility] [employer] [place] TYPE: Emergency DIAGNOSES: - CHEST PAIN DUE TO COUGH TROUBLE BREATHING - Moderate persistent asthma, uncomplicated INPATIENT VISIT TRACKING (12 MO.) No inpatient visits to display in this time frame [id number]
--- NOTE | 2020-03-07 13:14 | EKG ---
[facility] [address] [facility] [place], [place] [address] Signed Normal sinus rhythm Normal ECG No previous ECGs available Confirmed by INDER LIM MD ([id number]) on 03/07/2020 1:14:00 PM Electronically Signed By: INDER LIM MD 03/07/20 1314 PATIENT NAME: SONIA BALLARD Electrocardiogram DATE OF : 48 PHYSICIAN: INDER LIM MD REPORT #: [id number] REPORT IS CONFIDENTIAL AND NOT TO BE RELEASED WITHOUT AUTHORIZATION
[2020-03-07] MEDS ORDERED: ZITHROMAX250 MG PO (14:28)
[2020-03-07] MEDS ORDERED: AMITRIPTYLINE H25 MG PO (14:28)
[2020-03-07] MEDS ORDERED: VENTOLIN HFA18 GM INH (14:28)
[2020-03-07] MEDS ORDERED: SYMBICORT 16010.2 GM INH (14:35)
[2020-03-07] MEDS ORDERED: BUPROPION HCL100 MG NG (14:35)
[2020-03-07] MEDS ORDERED: CAPTOPRIL25 MG PO (14:36)
[2020-03-07] MEDS ORDERED: ARNUITY ELLIPT50 MCG INH (14:37)
[2020-03-07] MEDS ORDERED: NEURONTIN800 MG PO (14:38)
[2020-03-07] MEDS ORDERED: OMEPRAZOLE20 MG PO (14:39)
[2020-03-07] MEDS ORDERED: MELATONIN5 M2 PO (14:39)
[2020-03-07] MEDS ORDERED: OXYBUTYNIN CHLO15 MG PO (14:40)
[2020-03-07] MEDS ORDERED: MIRALAX17 GM PO (14:40)
[2020-03-07] MEDS ORDERED: TRAZODONE HCL150 MG PO (14:41)
--- NOTE | 2020-03-08 02:32 | PATH ---
[facility] [address], [place] [address] Signed ORDERING PHYSICIAN: Manoj Barba MD PATIENT NAME: SONIA BALLARD GENDER: F : 1950 Prior History: No cases found. SPECIMEN(S): MOLECULAR PATHOLOGY RESULTS: SARS-CoV-2 Not Detected ADDITIONAL NOTES.: The Potwin Fusion SARS-CoV-2 Assay is a multiplex real-time PCR (RT-PCR) in vitro diagnostic test intended for the qualitative detection of RNA from SARS-CoV-2 from individuals who meet COVID-19 clinical and/or epidemiological criteria. In general, SARS-CoV-2 RNA can be detected during the acute phase of infection. Positive results indicate the presence of SARS-CoV-2 RNA. Clinical correlation with patient history and other diagnostic information is necessary to determine patient infection status. Positive results do not rule out bacterial infection or co-infection with other viruses. Negative results do not preclude SARS-CoV-2 infection and should not be used as the sole basis for patient management decisions. Negative results must be combined with other clinical observations, patient history, and epidemiological information. The Potwin Fusion SARS-CoV-2 Assay is not yet approved or cleared by the [place] FDA. When there are no FDA-approved or cleared tests available, and other criteria are met, FDA can make tests available under an emergency access mechanism called an Emergency Use Authorization (EUA). The EUA for this test is supported by the Cooker Tender of Health and Human Service's (HHS's) declaration that circumstances exist to justify the emergency use of in vitro diagnostics for the detection and/or diagnosis of the virus that causes COVID-19. This EUA will remain in effect for the duration of the COVID-19 declaration justifying emergency of IVDs, unless it is terminated or revoked by FDA, after which the test may no longer be used. The Potwin Fusion SARS-CoV-2 Assay is for use only under EUA PATIENT NAME: SONIA BALLARD PATHOLOGY DATE OF : 48 REPORT #: [id number] PHYSICIAN: CHICHI PATHOLOGY PCP: NO PRIMARY CARE PHYSICIAN REPORT IS CONFIDENTIAL AND NOT TO BE RELEASED WITHOUT AUTHORIZATION [facility] [address] [place] [id number] Signed in [place] laboratories certified under the Clinical Laboratory Improvement Amendments of 1988 (CLIA) to perform high complexity tests. [facility] is certified under CLIA to perform high complexity clinical laboratory testing. PERFORMING LABORATORY.: Molecular testing was performed by [facility] [address] [place], [place] [address] [address] (Ballpoint Pens Assembler: Guero Juares D.O.; CLIA#: [id number]) Diagnostician: System Interface Pathologist Electronically Signed 03/08/2020 Copies: ~ PATIENT NAME: SONIA BALLARD PATHOLOGY DATE OF : [birth year] REPORT #: [id number] PHYSICIAN: CHICHI WHEAT PCP: NO PRIMARY CARE PHYSICIAN REPORT IS CONFIDENTIAL AND NOT TO BE RELEASED WITHOUT AUTHORIZATION
== END 2020-03-07 15:04 | disposition home or self-care (01) ==
LOC: ED 11:08
DX: J40 Bronchitis, not specified as acute or chronic (principal); Z20.828 Contact with and (suspected) exposure to other viral communicable diseases
CPT/HCPCS: 71045; 93005; 93010; 99285-25; C9803